=== PATIENT | male | born 1955 | race American Indian/Alaskan Native ===

== ENCOUNTER 2017-02-09 16:20 | Inpatient (IN) | payer OTHER ==
[2017-02-09 16:21] VITALS: BMI 31.1
--- NOTE | 2017-02-09 17:19 | C.PDOC ---
Time Seen by Provider: 02/09/17 17:07 Chief Complaint (Nursing): Lower Extremity Problem/Injury Past Medical History Vital Signs: Last Vital Signs Temp 98.2 F 02/09/17 16:51 Pulse 99 H 02/09/17 16:51 Resp 20 02/09/17 16:51 BP 125/83 02/09/17 16:51 Pulse Ox 99 02/09/17 16:51 - Medical History PMH: Bronchitis, Diabetes, Diverticulitis, HTN Denies: Chronic Kidney Disease - [facility] Procedures DILATE L PERONEAL ART W DRUG-ELUT INTRALUM, PERC (11/26/15) EXTIRPATION OF MATTER FROM L PERONEAL ART, PERC APPROACH (11/26/15) INSERTION OF INFUSION DEV INTO SUP VENA CAVA, PERC APPROACH (11/26/15) ULTRASONOGRAPHY OF SUPERIOR VENA CAVA, GUIDANCE (11/26/15) Family History: States: [place] (Both mother and father.), CAD (Both Mother and father.) - Social History Hx Tobacco Use: No Hx Alcohol Use: Yes Hx Substance Use: No - Immunization History Hx Tetanus Toxoid Vaccination: No Hx Influenza Vaccination: Yes Hx Pneumococcal Vaccination: Yes ED Course And Treatment O2 Sat by Pulse Oximetry: 99 Disposition - Disposition
--- NOTE | 2017-02-09 17:23 | C.PDOC ---
History Of Present Illness <Chana Garcia Bello - Last Filed: 02/09/17 17:35> <Dominique Vital - Last Filed: 02/09/17 19:53> 61 y/o male, with past medical history of diabetes, is sent to ED by PMD for evaluation of pain and swelling to left 2nd toe for the past week. Pt states his 2nd toe was stepped on 1 week ago. Pt admits to having similar symptoms in the past. Denies change in sensation, numbness, fever, chills, or any other associated symptoms at this time. (Chana Garcia) History Per: Patient History/Exam Limitations: no limitations Onset/Duration Of Symptoms: Days (1 week) Current Symptoms Are (Timing): Still Present Recent travel outside of the [place]: No Additional History Per: Patient <Chana Garcia Bello - Last Filed: 02/09/17 17:35> <Dominique Vital - Last Filed: 02/09/17 19:53> Time Seen by Provider: 02/09/17 17:07 Chief Complaint (Nursing): Lower Extremity Problem/Injury Past Medical History Reviewed: Historical Data, Nursing Documentation, Vital Signs - Medical History PMH: Bronchitis, Diabetes, Diverticulitis, HTN Denies: Chronic Kidney Disease Family History: States: [place] (Both mother and father.), CAD (Both Mother and father.) - Social History Hx Tobacco Use: No Hx Alcohol Use: Yes Hx Substance Use: No - Immunization History Hx Tetanus Toxoid Vaccination: No Hx Influenza Vaccination: Yes Hx Pneumococcal Vaccination: Yes <Chana Garcia - Last Filed: 02/09/17 17:35> Vital Signs: Last Vital Signs Temp 98.2 F 02/09/17 16:51 Pulse 99 H 02/09/17 16:51 Resp 20 02/09/17 16:51 BP 125/83 02/09/17 16:51 Pulse Ox 99 02/09/17 17:36 - [facility] Procedures DILATE L PERONEAL ART W DRUG-ELUT INTRALUM, PERC (11/26/15) EXTIRPATION OF MATTER FROM L PERONEAL ART, PERC APPROACH (11/26/15) INSERTION OF INFUSION DEV INTO SUP VENA CAVA, PERC APPROACH (11/26/15) ULTRASONOGRAPHY OF SUPERIOR VENA CAVA, GUIDANCE (07/26/16) Review Of Systems Except As Marked, All Systems Reviewed And Found Negative. Constitutional: Negative for: Fever, Chills Musculoskeletal: Positive for: Foot Pain (left 2nd toe) Skin: Negative for: Rash Neurological: Negative for: Weakness, Numbness <Chana Garcia - Last Filed: 02/09/17 17:35> Physical Exam - Physical Exam Appears: Non-toxic, No Acute Distress Skin: Warm, Dry, Other (1cm of superficial ulcer to left 2nd toe) Head: Atraumatic, Normacephalic Eye(s): bilateral: Normal Inspection, PERRL, EOMI Nose: Normal Oral Mucosa: Moist Neck: Normal ROM, Supple Lymphatic: No Adenopathy Chest: Symmetrical Cardiovascular: Rhythm Regular (RRR), No Murmur, No Other (no tachycardia) Respiratory: Normal Breath Sounds, No Rales, No Rhonchi, No Wheezing Gastrointestinal/Abdominal: Soft, No Tenderness Extremity: Normal ROM, No Pedal Edema, No Calf Tenderness, Capillary Refill (<2 secs.), No Deformity, No Swelling Pulses: Left Dorsalis Pedis: Normal, Right Dorsalis Pedis: Normal Neurological/Psych: Oriented x3, Normal Speech, Normal Motor, Normal Sensation Gait: Steady <hCana Garcia - Last Filed: 02/09/17 17:35> ED Course And Treatment O2 Sat by Pulse Oximetry: 99 (RA) Pulse Ox Interpretation: Normal <Chana Garcia - Last Filed: 02/09/17 17:35> - Laboratory Results Result Diagrams: 02/09/17 17:33 02/09/17 17:33 <Dominique Vital - Last Filed: 02/09/17 19:53> Medical Decision Making <Chana Garcia - Last Filed: 02/09/17 17:35> <Dominique Vital - Last Filed: 02/09/17 19:53> Medical Decision Making: Blood work, left 2nd toe x-ray ordered and reviewed. Podiatry resident was paged, who will evaluate patient at bedside. Resident was aware that Dr. Moncada would like patient to be admitted. (Chana Garcia) Disposition <Chana Garcia - Last Filed: 02/09/17 17:35> Discussed With : Jeremy De Leon Comment: accepted the pt on his service and took over the care at took over the care at 7:52PM Doctor Will See Patient In The: ED Counseled Patient/Family Regarding: Studies Performed, Diagnosis - Disposition Disposition Time: 19:00 - POA Present On Arrival: Poor Glycemic Control <Dominique Vital - Last Filed: 02/09/17 19:53> - Disposition Disposition: HOSPITALIZED Condition: FAIR Forms: [facility] ([facility]) - Clinical Impression Clinical Impression: Cellulitis, Osteomyelitis, Diabetes mellitus - Scribe Statement The provider has reviewed the documentation as recorded by the Scribe <Chana Garcia - Last Filed: 02/09/17 17:35> <Dominique Vital - Last Filed: 02/09/17 19:53> - Scribe Statement Clemencia Anderson All medical record entries made by the Scribe were at my direction and personally dictated by me. I have reviewed the chart and agree that the record accurately reflects my personal performance of the history, physical exam, medical decision making, and the department course for this patient. I have also personally directed, reviewed, and agree with the discharge instructions and disposition. (Chana Garcia) Decision To Admit <Chana Garcia - Last Filed: 02/09/17 17:35> - Pt Status Changed To: Hospital Disposition Of: Inpatient - Admit Certification Admit to Inpatient:: After my assessment, the patient will require hospitalization for at least two midnights. This is because of the severity of symptoms shown, intensity of services needed, and/or the medical risk in this patient being treated as an outpatient. - InPatient: Physician Admission Certification: I certify that this patient requires 2 or more midnights of care for the following reason:: After my assessment, the patient will require hospitalization for at least two midnights. This is because of the severity of symptoms shown, intensity of services needed, and/or the medical risk in this patient being treated as an outpatient. - . Bed Request Type: Regular Admitting Physician: Jeremy De Leon <Dominique Vital - Last Filed: 02/09/17 19:53> - . Patient Diagnosis: Cellulitis, Osteomyelitis, Diabetes mellitus
[2017-02-09 17:39] LABS: BASO # 0.1 K/uL (0.0-0.2); EOS # 0.2 K/uL (0.0-0.7); EOS % 2.8 % (0.0-4.0); HEMATOCRIT 40.3 % (35.0-51.0); LYMPH # 2.3 K/uL (1.0-4.3); LYMPH % 28.9 % (20.0-40.0); MEAN CELL VOLUME 91.4 fL (80.0-94.0); MEAN CORPUSCULAR HEMOGLOBIN 31.6 pg (27.0-31.0); MEAN CORPUSCULAR HGB CONC 34.5 g/dL (33.0-37.0); MONO # 0.6 K/uL (0.0-0.8); MONO % 7.8 % (0.0-10.0); NRBC % 0.1 % (0.0-2.0); RED CELL DISTRIBUTION WIDTH 13.5 % (11.5-14.5)
[2017-02-09 17:51] LABS: CHLORIDE 93 mmol/L (98-107); POTASSIUM 4.3 mmol/L (3.6-5.2); SODIUM 131 mmol/L (132-148)
[2017-02-09 17:53] LABS: GFR AFRICAN-AMERICAN > 60
[2017-02-09 17:54] LABS: ALB/GLOB RATIO 1.2 (1.0-2.1); ALKALINE PHOSPHATASE 113 U/L (38-126); ALT/SGPT 47 U/L (21-72); AST/SGOT 33 U/L (17-59); BILIRUBIN,TOTAL 0.6 mg/dL (0.2-1.3); BLOOD UREA NITROGEN 15 mg/dL (9-20); CALCIUM 9.6 mg/dl (8.6-10.4); CARBON DIOXIDE 25 mmol/L (22-30); GLUCOSE,RANDOM 381 mg/dL (75-110); TOTAL PROTEIN 7.7 g/dL (6.3-8.3)
--- NOTE | 2017-02-09 18:17 | RAD ---
Left foot radiographs, 2nd digit ; three views Comparison: Left foot radiographs performed 11/26/15 Indication: Rule out osteo Findings: Soft tissue swelling. Irregularity about the 2nd digit, middle phalanx ; correlate clinically for osteomyelitis versus nondisplaced fracture. The remainder of the visualized osseous structures appear intact. No dislocation. Impression: Irregularity involving the 2nd middle phalanx ; correlate clinically for osseous destructive changes related to osteomyelitis versus nondisplaced fracture. Soft tissue swelling. Please note that MRI without and with IV contrast is most sensitive in detection of acute osteomyelitis.
--- NOTE | 2017-02-09 18:54 | CP.PCM.CON ---
History of Present Illness - History of Present Illness History of Present Illness: Podiatry consult note-- Dr. Dhavla Moncada This is a 61 yo male patient seen in ED today for ulceration and pain to left 2nd toe. Pt says this has been present for 1 week after someone stepped on his toe. Denies seeing any pus or drainage, has been been applying neosporin daily. Complains of tenderness to the 2nd toe which he says is getting worse. Describes as a burning pain. Denies any numbness or tingling. Was seen in office of Dr. Moncada today, Dr. Moncada advised pt to proceed to ED for labs, foot x-ray and note for admission. Pt says his blood sugar has been high recently, says his A1C is 12.0. Pt denies f/n/v/c/sob/cp/weakness/dizziness at this time. Offers no other complaints. Has been ambulating with surgical shoe. PMH: DM, HTN ALL: PCN Meds: see home meds Surg Hx: right ulnar nerve surgery Soc Hx: past smoker (denies current use), drinks 1-2 beers nightly with dinner, denies illicit drug use Review of Systems - Review of Systems Review of Systems: all systems reviewed and negative except HPI Past Patient History - Infectious Disease Hx of Infectious Diseases: None - Past Medical History & Family History Past Medical History?: Yes - Past Social History Smoking Status: Former Smoker - CARDIAC Hx Hypertension: Yes - PULMONARY Hx Bronchitis: Yes - NEUROLOGICAL Hx Neurological Disorder: No - HEENT Hx HEENT Problems: No - RENAL Hx Chronic Kidney Disease: No - ENDOCRINE/METABOLIC Hx Endocrine Disorders: Yes Hx Diabetes Mellitus Type 2: Yes - HEMATOLOGICAL/ONCOLOGICAL Hx Blood Disorders: No - INTEGUMENTARY Hx Dermatological Problems: Yes Other/Comment: HX: LEFT FOOT ULCER. HX: OSTEOMYELITIS - MUSCULOSKELETAL/RHEUMATOLOGICAL Hx Musculoskeletal Disorders: No Hx Falls: No - GASTROINTESTINAL Hx Diverticulitis: Yes - GENITOURINARY/GYNECOLOGICAL Hx Genitourinary Disorders: No - PSYCHIATRIC Hx Substance Use: No - SURGICAL HISTORY Hx Surgeries: Yes Hx Angiogram: Yes (ABDOMINAL) Hx Eye Surgery: Yes (R eye cataract/ Lasek) Hx Orthopedic Surgery: Yes (L 5th finger, R elbow) Other/Comment: L wrist /L hand ganglion cyst removed. HX: PICC LINE INSERTION - ANESTHESIA Hx Anesthesia: Yes Hx Anesthesia Reactions: No Hx Malignant Hyperthermia: No Meds Allergies/Adverse Reactions: Allergies Allergy/AdvReac Type Severity Reaction Status Date / Time Penicillins Allergy Verified 01/16/16 13:30 Physical Exam - Constitutional Appears: Non-toxic, No Acute Distress - Extremities Exam Extremities exam: Negative for: calf tenderness Additional comments: B/L lower ext exam: VASC- DP/PT pulses faintly palpable, skin temp runs warm to warm (proximal to distal), cap refill <3 sec to all digits NEURO- pedal sensation is grossly diminished DERM-full thickness ulceration noted to medial aspect of left 2nd digit, with fibrogranular base, no purulence, no drainage, no malodor, neg probe to bone, slight erythema noted to left 2nd digit ORTHO- tender to palpation left 2nd digit, able to wiggle all toes freely - Neurological Exam Neurological exam: Alert, CN II-XII Intact, Oriented x3 - Psychiatric Exam Psychiatric exam: Normal Affect, Normal Mood Results - Vital Signs Recent Vital Signs: Last Vital Signs Temp 98.2 F 02/09/17 16:51 Pulse 99 H 02/09/17 16:51 Resp 20 02/09/17 16:51 BP 125/83 02/09/17 16:51 Pulse Ox 99 02/09/17 17:36 - Labs Result Diagrams: 02/09/17 17:33 02/09/17 17:33 Labs: Laboratory Results - last 24 hr 02/09/17 02/09/17 02/09/17 17:33 17:33 17:33 WBC 8.0 RBC 4.41 Hgb 13.9 Hct 40.3 MCV 91.4 MCH 31.6 H MCHC 34.5 RDW 13.5 Plt Count 275 MPV 8.0 Neut % (Auto) 59.5 Lymph % (Auto) 28.9 Hitchcock % (Auto) 7.8 Eos % (Auto) 2.8 Baso % (Auto) 1.0 Neut # 4.7 Lymph # 2.3 Hitchcock # 0.6 Eos # 0.2 Baso # 0.1 Sodium 131 L Potassium 4.3 Chloride 93 L Carbon Dioxide 25 Anion Gap 17 BUN 15 Creatinine 0.8 Est GFR ( Amer) > 60 Est GFR (Non-Af Amer) > 60 Random Glucose 381 H Lactic Acid 2.0 Calcium 9.6 Total Bilirubin 0.6 AST 33 ALT 47 Alkaline Phosphatase 113 C-React Prot High Sens Total Protein 7.7 Albumin 4.3 Globulin 3.5 Albumin/Globulin Ratio 1.2 02/09/17 17:33 WBC RBC Hgb Hct MCV MCH MCHC RDW Plt Count MPV Neut % (Auto) Lymph % (Auto) Hitchcock % (Auto) Eos % (Auto) Baso % (Auto) Neut # Lymph # Hitchcock # Eos # Baso # Sodium Potassium Chloride Carbon Dioxide Anion Gap BUN Creatinine Est GFR ( Amer) Est GFR (Non-Af Amer) Random Glucose Lactic Acid Calcium Total Bilirubin AST ALT Alkaline Phosphatase C-React Prot High Sens > 15.00 H Total Protein Albumin Globulin Albumin/Globulin Ratio Assessment & Plan - Assessment and Plan (Free Text) Assessment: 61 yo diabetic male patient with 1) ulceration of left 2nd digit with possible fracture vs. possible OM, 2) PAD Plan: Pt S&E at bedside in ED Plan discussed with attending Dr. Moncada in detail Chart, labs and vitals reviewed: WBC WNL, CRP is elevated, ESR pending Wound cx: results pending Right foot x-ray: irregularity 2nd middle phalanx (osseous destructive changes related to OM vs. non-displaced fx) MRI ordered: r/o OM (to be taken tomorrow) Vascular consult placed, hx of PAD, past stenting in 2016 (Dr. Ponce) Per Dr. Moncada recommend admission for IV abx Dressing applied to left foot with DSD. Podiatry will follow while patient is in house.
--- NOTE | 2017-02-09 23:13 | CP.PCM.HP ---
<Lenore HutchinsonNoreen - Last Filed: 02/10/17 03:32> History of Present Illness - History of Present Illness History of Present Illness: Patient is a 61 year old male with a past medical history of HTN and DM, presents to the ED with an infection of the 2nd digit of the foot. Patient was sent in by their research instructor, Dr. Moncada. Patient reports that someone stepped on his foot last Wednesday, and since then, the infection developed. Patient reports 8/10 pain from the base of his toe to the tip. He reports nothing makes it worse or better. He tried naproxen with no relief. He currently denies having a fever, leg pain and swelling, nausea, vomiting, chest pain, shortness of breath, abdominal pain, and headaches. PMD: Dr. Moncada Quality Assurance Supervisor Chassis: Dr. Moncada PMHx: HTN, DM, previous left foot wound (2015, clean and packed) SurgHx: Stents in left leg (2005), shoulder/elbow surgery 5 years ago, Lasics eye surgery (L), Dalhart reattachment (childhood) FamHx: Mother- NM, Father-HTN, Grandson-Pancreatic Cancer SocHx: former smoker (5 cigarettes daily), drinks 2-3 beers nightly, denies drug use; lives at home with ; works at the [employer] Allergies: PCN (anaphylaxis) Medication: Metformin 500mg BID, Januvia, Enalapril, Plavix, Simvastatin ( unknown doses) Present on Admission - Present on Admission Any Indicators Present on Admission: Yes History of Uncontrolled Diabetes: Yes Review of Systems - Constitutional Constitutional: absent: Chills, Fever, Headache - EENT Eyes: absent: Change in Vision Ears: absent: Dizziness - Cardiovascular Cardiovascular: absent: Chest Pain, Dyspnea, Leg Edema, Palpitations - Respiratory Respiratory: absent: Cough, Dyspnea - Gastrointestinal Gastrointestinal: absent: Abdominal Pain, Constipation, Diarrhea, Nausea, Vomiting - Genitourinary Genitourinary: Urinary Frequency. absent: Dysuria, Hematuria - Integumentary Integumentary: Wounds (2ng digit of left foot) - Neurological Neurological: absent: Dizziness, Headaches, Weakness - Hematologic/Lymphatic Hematologic: absent: Easy Bruising Past Patient History - Infectious Disease Hx of Infectious Diseases: None - Past Medical History & Family History Past Medical History?: Yes - Past Social History Smoking Status: Former Smoker - CARDIAC Hx Hypertension: Yes - PULMONARY Hx Bronchitis: Yes - NEUROLOGICAL Hx Neurological Disorder: No - HEENT Hx HEENT Problems: No - RENAL Hx Chronic Kidney Disease: No - ENDOCRINE/METABOLIC Hx Endocrine Disorders: Yes Hx Diabetes Mellitus Type 2: Yes - HEMATOLOGICAL/ONCOLOGICAL Hx Blood Disorders: No - INTEGUMENTARY Hx Dermatological Problems: Yes Other/Comment: HX: LEFT FOOT ULCER. HX: OSTEOMYELITIS - MUSCULOSKELETAL/RHEUMATOLOGICAL Hx Musculoskeletal Disorders: No Hx Falls: No - GASTROINTESTINAL Hx Diverticulitis: Yes - GENITOURINARY/GYNECOLOGICAL Hx Genitourinary Disorders: No - PSYCHIATRIC Hx Substance Use: No - SURGICAL HISTORY Hx Surgeries: Yes Hx Angiogram: Yes (ABDOMINAL) Hx Eye Surgery: Yes (R eye cataract/ Lasek) Hx Orthopedic Surgery: Yes (L 5th finger, R elbow) Other/Comment: L wrist /L hand ganglion cyst removed. HX: PICC LINE INSERTION - ANESTHESIA Hx Anesthesia: Yes Hx Anesthesia Reactions: No Hx Malignant Hyperthermia: No Meds Allergies/Adverse Reactions: Allergies Allergy/AdvReac Type Severity Reaction Status Date / Time Penicillins Allergy Verified 01/16/16 13:30 Physical Exam - Constitutional Appears: No Acute Distress - Head Exam Head Exam: ATRAUMATIC, NORMAL INSPECTION - Eye Exam Eye Exam: EOMI, Normal appearance - ENT Exam ENT Exam: Mucous Membranes Moist - Respiratory Exam Respiratory Exam: Clear to Auscultation Bilateral, NORMAL BREATHING PATTERN. absent: Rales, Rhonchi, Wheezes - Cardiovascular Exam Cardiovascular Exam: REGULAR RHYTHM, RRR, +S1, +S2 - GI/Abdominal Exam GI & Abdominal Exam: Normal Bowel Sounds, Soft. absent: Firm, Guarding, Mass, Tenderness - Extremities Exam Extremities exam: Positive for: tenderness (left LE extending down from knee). Negative for: normal inspection, pedal pulses present - Neurological Exam Neurological exam: Alert, Oriented x3 - Psychiatric Exam Psychiatric exam: Normal Affect, Normal Mood - Skin Skin Exam: Dry, Normal Color, Warm Additional comments: ulceration of the 2nd digit of the left foot, no discharge, erythema, or odor. Results - Vital Signs Recent Vital Signs: Last Vital Signs Temp 97.8 F 02/09/17 21:06 Pulse 90 02/09/17 21:06 Resp 20 02/09/17 21:06 BP 146/79 02/09/17 21:06 Pulse Ox 96 02/09/17 21:06 - Labs Result Diagrams: 02/09/17 17:33 02/09/17 17:33 Labs: Laboratory Results - last 24 hr 02/09/17 02/09/17 02/09/17 17:33 17:33 17:33 WBC 8.0 RBC 4.41 Hgb 13.9 Hct 40.3 MCV 91.4 MCH 31.6 H MCHC 34.5 RDW 13.5 Plt Count 275 MPV 8.0 Neut % (Auto) 59.5 Lymph % (Auto) 28.9 Mckean % (Auto) 7.8 Eos % (Auto) 2.8 Baso % (Auto) 1.0 Neut # 4.7 Lymph # 2.3 Mckean # 0.6 Eos # 0.2 Baso # 0.1 ESR 37 H Sodium 131 L Potassium 4.3 Chloride 93 L Carbon Dioxide 25 Anion Gap 17 BUN 15 Creatinine 0.8 Est GFR ( Amer) > 60 Est GFR (Non-Af Amer) > 60 Random Glucose 381 H Lactic Acid 2.0 Calcium 9.6 Total Bilirubin 0.6 AST 33 ALT 47 Alkaline Phosphatase 113 C-React Prot High Sens Total Protein 7.7 Albumin 4.3 Globulin 3.5 Albumin/Globulin Ratio 1.2 02/09/17 17:33 WBC RBC Hgb Hct MCV MCH MCHC RDW Plt Count MPV Neut % (Auto) Lymph % (Auto) Mckean % (Auto) Eos % (Auto) Baso % (Auto) Neut # Lymph # Mckean # Eos # Baso # ESR Sodium Potassium Chloride Carbon Dioxide Anion Gap BUN Creatinine Est GFR ( Amer) Est GFR (Non-Af Amer) Random Glucose Lactic Acid Calcium Total Bilirubin AST ALT Alkaline Phosphatase C-React Prot High Sens > 15.00 H Total Protein Albumin Globulin Albumin/Globulin Ratio Assessment & Plan (1) Osteomyelitis Assessment and Plan: Need to rule out osteomyelitis of 2nd digit of left foot Wound cx: f/u results and sensitivities Blood cx: f/u results Xray: irregularity on 2nd middle phalanx- osseous destructive changes related to osteomyelitis vs. nondisplaced fracture. soft tissue swelling. Started Vancomycin 1gm IV Q24hr Podiatry consulted- Dr. Moncada, follow recs as per podiatry team * Left LE MRI: f/u results * Arterial doppler of left LE: f/u results Surgery consulted- Dr. Ponce, help appreciated Status: Acute (2) HTN (hypertension) Assessment and Plan: Continue home medications- Enalapril. Status: Acute (3) PVD (peripheral vascular disease) Assessment and Plan: Hx of left LE stents (2015) Continue home medication, Plavix 75mg PO daily Status: Acute (4) Diabetes mellitus Assessment and Plan: Continue home medications- Januvia, Linagliptin, Metformin. Monitor blood glucose, Accuchecks Consistent carbohydrate diet (low) Status: Acute (5) Prophylactic measure Assessment and Plan: SCDs- C/I due to infection and PVD Consistent Carbohydrate Diet Accuchecks O2 via nasal cannula Pepcid 20mg PO BID Heparin 5,000 SC PT Status: Acute <Jeremy De Leon - Last Filed: 02/10/17 06:23> Results - Vital Signs Recent Vital Signs: Last Vital Signs Temp 98.2 F 02/09/17 23:12 Pulse 77 02/09/17 23:12 Resp 20 02/09/17 23:12 BP 137/78 02/09/17 23:12 Pulse Ox 100 02/09/17 23:12 - Labs Result Diagrams: 02/09/17 17:33 02/09/17 17:33 Labs: Laboratory Results - last 24 hr 02/09/17 02/09/17 02/09/17 17:33 17:33 17:33 WBC 8.0 RBC 4.41 Hgb 13.9 Hct 40.3 MCV 91.4 MCH 31.6 H MCHC 34.5 RDW 13.5 Plt Count 275 MPV 8.0 Neut % (Auto) 59.5 Lymph % (Auto) 28.9 Mckean % (Auto) 7.8 Eos % (Auto) 2.8 Baso % (Auto) 1.0 Neut # 4.7 Lymph # 2.3 Mckean # 0.6 Eos # 0.2 Baso # 0.1 ESR 37 H Sodium 131 L Potassium 4.3 Chloride 93 L Carbon Dioxide 25 Anion Gap 17 BUN 15 Creatinine 0.8 Est GFR ( Amer) > 60 Est GFR (Non-Af Amer) > 60 Random Glucose 381 H Lactic Acid 2.0 Calcium 9.6 Total Bilirubin 0.6 AST 33 ALT 47 Alkaline Phosphatase 113 C-React Prot High Sens Total Protein 7.7 Albumin 4.3 Globulin 3.5 Albumin/Globulin Ratio 1.2 02/09/17 17:33 WBC RBC Hgb Hct MCV MCH MCHC RDW Plt Count MPV Neut % (Auto) Lymph % (Auto) Mckean % (Auto) Eos % (Auto) Baso % (Auto) Neut # Lymph # Mckean # Eos # Baso # ESR Sodium Potassium Chloride Carbon Dioxide Anion Gap BUN Creatinine Est GFR ( Amer) Est GFR (Non-Af Amer) Random Glucose Lactic Acid Calcium Total Bilirubin AST ALT Alkaline Phosphatase C-React Prot High Sens > 15.00 H Total Protein Albumin Globulin Albumin/Globulin Ratio Assessment & Plan - Date & Time Date: 02/10/17 (I have seen and examined the patient. I agree with the findings and plan of care as documented by Dr. Hutchinson. Patient with osteomyelitis of right foot. History of peripheral vascular disease. Consult to Dr. Ponce and Dr. Moncada - podiatry. Vanco for now. Unable to give zosyn due to PCN allergy. Continue Plavix. History of diabetes. Continue home meds. Accuchecks and NISS. Monitor for acute changes.) Time: 06:22 Attending/Attestation - Attestation I have personally seen and examined this patient.: Yes I have fully participated in the care of the patient.: Yes I have reviewed all pertinent clinical information: Yes
--- NOTE | 2017-02-10 00:18 | CP.PCM.CON ---
History of Present Illness - History of Present Illness History of Present Illness: Surgery: Dr. Ponce CC: left toe wound Reason for consult: HX of PAD HPI: Patient is a 61 y/o male w/ sign. PMHX of PAD requiring stent placement on LLE as well as DM presents complaining of left 2nd toe wound x1 week. States the toe was injured 2/2 someone stepping on it. He reports noticing an increase in swelling of the LE x 1 week as well. He report significant pain to the left toe. He states before the injury he has been ambulating w/o pain for the past year since the stents were placed. He denies resting pain. He denies f/c/n/v. He reports taking his diabetic medication but states his sugars have been running high, last Hgb A1c was around 12 per patient report. PMH: PAD, HTN, DM PSH: right elbow, left shoulder, lasix, Left sided LE angio w/ balloon angioplasty, arthrectomy and 3 stents placed Social: former tobacco user (15+ years ago), denies ETOH or drug use Review of Systems - Review of Systems All systems: reviewed and no additional remarkable complaints except Review of Systems: unless stated in HPI Past Patient History - Infectious Disease Hx of Infectious Diseases: None - Past Medical History & Family History Past Medical History?: Yes - Past Social History Smoking Status: Former Smoker - CARDIAC Hx Hypertension: Yes - PULMONARY Hx Bronchitis: Yes - NEUROLOGICAL Hx Neurological Disorder: No - HEENT Hx HEENT Problems: No - RENAL Hx Chronic Kidney Disease: No - ENDOCRINE/METABOLIC Hx Endocrine Disorders: Yes Hx Diabetes Mellitus Type 2: Yes - HEMATOLOGICAL/ONCOLOGICAL Hx Blood Disorders: No - INTEGUMENTARY Hx Dermatological Problems: Yes Other/Comment: HX: LEFT FOOT ULCER. HX: OSTEOMYELITIS - MUSCULOSKELETAL/RHEUMATOLOGICAL Hx Musculoskeletal Disorders: No Hx Falls: No - GASTROINTESTINAL Hx Diverticulitis: Yes - GENITOURINARY/GYNECOLOGICAL Hx Genitourinary Disorders: No - PSYCHIATRIC Hx Substance Use: No - SURGICAL HISTORY Hx Surgeries: Yes Hx Angiogram: Yes (ABDOMINAL) Hx Eye Surgery: Yes (R eye cataract/ Lasek) Hx Orthopedic Surgery: Yes (L 5th finger, R elbow) Other/Comment: L wrist /L hand ganglion cyst removed. HX: PICC LINE INSERTION - ANESTHESIA Hx Anesthesia: Yes Hx Anesthesia Reactions: No Hx Malignant Hyperthermia: No Meds Allergies/Adverse Reactions: Allergies Allergy/AdvReac Type Severity Reaction Status Date / Time Penicillins Allergy Verified 01/16/16 13:30 - Medications Medications: Current Medications Acetaminophen (Tylenol 325mg Tab) 650 mg PO Q6 PRN PRN Reason: Pain, Mild (1-3) Clopidogrel Bisulfate (Plavix) 75 mg PO DAILY [facility]CLUDES [facility] Enalapril Maleate (Vasotec) 10 mg PO DAILY [facility]CLUD[facility] Famotidine (Pepcid) 20 mg PO BID [facility]CLUDES [facility] Heparin Sodium (Porcine) (Heparin) 5,000 units SC Q8 [facility] INCLUDES [facility] Home Med (Januvia) 1 tab PO DAILY COUNT INCLUDES [facility] Home Med (Linagliptin [Tradjenta]) 5 mg PO DAILY COUNT [facility]CLUDES [facility] Vancomycin/Sodium Chloride (Vancocin) 1 gm in 200 mls @ 133 mls/hr IVPB Q24H [facility]CLUD[facility] Stop: 02/15/17 00:01 Metformin HCl (Glucophage) 500 mg PO BID COUNT [facility]CLUDES [facility] Physical Exam - Constitutional Appears: Non-toxic, No Acute Distress - Head Exam Head Exam: ATRAUMATIC, NORMOCEPHALIC - Eye Exam Eye Exam: EOMI, Normal appearance - ENT Exam ENT Exam: Mucous Membranes Moist - Respiratory Exam Respiratory Exam: NORMAL BREATHING PATTERN. absent: Respiratory Distress - Cardiovascular Exam Cardiovascular Exam: REGULAR RHYTHM. absent: Tachycardia - Extremities Exam Additional comments: left ulcers on 2nd toe w/ clean dry dressing intact. pulses significant diminished, almost nonpalpable to the LLE. LE warm to touch. 2+ pitting edema. No cellulitic changes appreciated. - Neurological Exam Neurological exam: Alert, Oriented x3 - Psychiatric Exam Psychiatric exam: Normal Affect, Normal Mood - Skin Skin Exam: Dry, Normal Color Results - Vital Signs Recent Vital Signs: Last Vital Signs Temp 98.2 F 02/09/17 23:12 Pulse 77 02/09/17 23:12 Resp 20 02/09/17 23:12 BP 137/78 02/09/17 23:12 Pulse Ox 100 02/09/17 23:12 - Labs Result Diagrams: 02/09/17 17:33 02/09/17 17:33 Labs: Laboratory Results - last 24 hr 02/09/17 02/09/17 02/09/17 17:33 17:33 17:33 WBC 8.0 RBC 4.41 Hgb 13.9 Hct 40.3 MCV 91.4 MCH 31.6 H MCHC 34.5 RDW 13.5 Plt Count 275 MPV 8.0 Neut % (Auto) 59.5 Lymph % (Auto) 28.9 [place] % (Auto) 7.8 Eos % (Auto) 2.8 Baso % (Auto) 1.0 Neut # 4.7 Lymph # 2.3 [place] # 0.6 Eos # 0.2 Baso # 0.1 ESR 37 H Sodium 131 L Potassium 4.3 Chloride 93 L Carbon Dioxide 25 Anion Gap 17 BUN 15 Creatinine 0.8 Est GFR ( Amer) > 60 Est GFR (Non-Af Amer) > 60 Random Glucose 381 H Lactic Acid 2.0 Calcium 9.6 Total Bilirubin 0.6 AST 33 ALT 47 Alkaline Phosphatase 113 C-React Prot High Sens Total Protein 7.7 Albumin 4.3 Globulin 3.5 Albumin/Globulin Ratio 1.2 02/09/17 17:33 WBC RBC Hgb Hct MCV MCH MCHC RDW Plt Count MPV Neut % (Auto) Lymph % (Auto) [place] % (Auto) Eos % (Auto) Baso % (Auto) Neut # Lymph # [place] # Eos # Baso # ESR Sodium Potassium Chloride Carbon Dioxide Anion Gap BUN Creatinine Est GFR ( Amer) Est GFR (Non-Af Amer) Random Glucose Lactic Acid Calcium Total Bilirubin AST ALT Alkaline Phosphatase C-React Prot High Sens > 15.00 H Total Protein Albumin Globulin Albumin/Globulin Ratio Assessment & Plan - Assessment and Plan (Free Text) Assessment: 61 y/o male w/ left foot wound, Hx of PAD s/p intervention Plan: -arterial duplex study -possible CT angio -wound care per podiatry -abx per primary -am labs -f/u culture -pending result determine vascular intervention -further recs per Dr. Ponce AKWhite PGY3
[2017-02-10] MEDS: Vancomycin 1 gm/NS 200 ml 1 GM/200 ML BAG IVPB SCH (00:25)
[2017-02-10 07:27] LABS: BASO # 0.1 K/uL (0.0-0.2); BASO % 1.1 % (0.0-2.0); EOS # 0.2 K/uL (0.0-0.7); EOS % 4.1 % (0.0-4.0); HEMATOCRIT 37.7 % (35.0-51.0); LYMPH # 1.8 K/uL (1.0-4.3); LYMPH % 31.1 % (20.0-40.0); MEAN CELL VOLUME 91.1 fL (80.0-94.0); MEAN CORPUSCULAR HEMOGLOBIN 31.4 pg (27.0-31.0); MEAN CORPUSCULAR HGB CONC 34.5 g/dL (33.0-37.0); MEAN PLATELET VOLUME 8.2 fL (7.2-11.7); MONO # 0.6 K/uL (0.0-0.8); MONO % 9.8 % (0.0-10.0); RED CELL DISTRIBUTION WIDTH 13.4 % (11.5-14.5); WHITE BLOOD COUNT 5.8 K/uL (4.8-10.8)
[2017-02-10 07:42] LABS: CHLORIDE 97 mmol/L (98-107); POTASSIUM 4.7 mmol/L (3.6-5.2); SODIUM 132 mmol/L (132-148)
[2017-02-10 07:44] LABS: GFR AFRICAN-AMERICAN > 60
[2017-02-10 07:45] LABS: ALB/GLOB RATIO 1.2 (1.0-2.1); ALKALINE PHOSPHATASE 105 U/L (38-126); ALT/SGPT 51 U/L (21-72); AST/SGOT 49 U/L (17-59); BILIRUBIN,TOTAL 0.6 mg/dL (0.2-1.3); BLOOD UREA NITROGEN 13 mg/dL (9-20); CARBON DIOXIDE 25 mmol/L (22-30); TOTAL PROTEIN 6.9 g/dL (6.3-8.3)
[2017-02-10 07:46] LABS: CALCIUM 8.9 mg/dl (8.6-10.4); GLUCOSE,RANDOM 323 mg/dL (75-110)
[2017-02-10] MEDS ORDERED: Dextrose 50% SYRINGE Inj (50 ml) IV PRN (08:55)
[2017-02-10] MEDS ORDERED: Glucagon Recombinant 1 mg Inj IM PRN (08:55)
--- NOTE | 2017-02-10 08:58 | CP.PCM.PN ---
<Norma Jacobsa - Last Filed: 02/10/17 13:35> Subjective - Date & Time of Evaluation Date of Evaluation: 02/10/17 Time of Evaluation: 09:00 - Subjective Subjective: Medicine Note for Dr. Ruelas Patient was seen and examined at bedside. Patient reports he has mild pain. Denied fever, chills, headache, chest pain, SOB, abdominal pain, n/v/d/c, or urinary symptoms. Objective - Vital Signs/Intake and Output Vital Signs (last 24 hours): Temp Pulse Resp BP Pulse Ox 98.4 F 82 20 126/79 97 02/10/17 08:00 02/10/17 08:00 02/10/17 08:00 02/10/17 08:00 02/10/17 08:00 Intake and Output: 02/10/17 02/10/17 06:59 18:59 Intake Total 450 Balance 450 - Medications Medications: Current Medications Acetaminophen (Tylenol 325mg Tab) 650 mg PO Q6 PRN PRN Reason: Pain, Mild (1-3) Last Admin: 02/10/17 00:23 Dose: 650 mg Clopidogrel Bisulfate (Plavix) 75 mg PO DAILY [facility] Dextrose (Dextrose 50% Inj) 0 ml IV STAT PRN; Protocol PRN Reason: Hyglycemia Protocol Dextrose (Glutose 15) 0 gm PO ONCE PRN; Protocol PRN Reason: Hypoglycemia Protocol Enalapril Maleate (Vasotec) 10 mg PO DAILY [facility] Famotidine (Pepcid) 20 mg PO BID [facility] Glucagon (Glucagen Diagnostic Kit) 0 mg IM STAT PRN; Protocol PRN Reason: Hypoglycemia Protocol Heparin Sodium (Porcine) (Heparin) 5,000 units SC Q8 [facility] Last Admin: 02/10/17 06:30 Dose: Not Given Vancomycin/Sodium Chloride (Vancocin) 1 gm in 200 mls @ 133 mls/hr IVPB Q24H [facility] Stop: 02/15/17 00:01 Last Admin: 02/10/17 00:25 Dose: 133 mls/hr Dextrose (Dextrose 5% In Water 1000 Ml) 1,000 mls @ 0 mls/hr IV .Q0M PRN; Protocol; Per Protocol PRN Reason: Hypoglycemia Protocol Insulin Human Regular (Novolin R) 0 unit SC ACHS [facility] PRN Reason: Protocol - Labs Labs: 02/10/17 07:03 02/10/17 07:03 PT 10.7 SECONDS (9.7-12.2) 02/10/17 07:03 INR 1.0 02/10/17 07:03 APTT 41 SECONDS (21-34) H 02/10/17 07:03 - Constitutional Appears: No Acute Distress - Head Exam Head Exam: NORMAL INSPECTION, NORMOCEPHALIC - Eye Exam Eye Exam: EOMI, Normal appearance, PERRL Pupil Exam: NORMAL ACCOMODATION - ENT Exam ENT Exam: Mucous Membranes Moist - Respiratory Exam Respiratory Exam: Clear to Ausculation Bilateral, NORMAL BREATHING PATTERN. absent: Decreased Breath Sounds, Respiratory Distress - Cardiovascular Exam Cardiovascular Exam: REGULAR RHYTHM, RRR, +S1 - GI/Abdominal Exam GI & Abdominal Exam: Soft, Normal Bowel Sounds. absent: Distended, Tenderness - Extremities Exam Extremities Exam: Tenderness. absent: Pedal Edema Additional comments: TTP walker, ankle region of left leg. 2nd toe medial aspect - fascia layer visible, no pus or drainage from site. - Back Exam Back Exam: NORMAL INSPECTION - Neurological Exam Neurological Exam: Alert, Awake, Oriented x3 - Psychiatric Exam Psychiatric exam: Normal Affect, Normal Mood - Skin Skin Exam: Dry, Intact, Normal Color, Warm Assessment and Plan - Assessment and Plan (Free Text) Plan: Osteomyelitis of Left 2nd Metatarsal * Podiatry consulted- Dr. Moncada - help appreciated * ESR: 37, CRP: high * Xray: irregularity on 2nd middle phalanx- osseous destructive changes related to osteomyelitis vs. nondisplaced fracture. soft tissue swelling. * Left LE MRI: 1. Prominent signal abnormality with bony destructive changes seen at the 2nd middle phalanx extending into the base of the 2nd distal phalanx with decreased T1 signal, increased STIR signal, and patchy post- contrast enhancement consistent with an acute osteomyelitis. 2. Prominent bony destructive changes seen at the head of the 5th metatarsal bone with patchy decreased T1 signal and increased STIR signal with some adjacent mild reactive changes of the base of the 5th proximal phalanx. This is of uncertain clinical etiology however the sequelae of acute infectious and or inflammatory changes cannot entirely be excluded. Clinical correlation. 3. Prominent reticulation and edema seen within the dorsal subcutaneous soft tissues of the mid and forefoot. 4. Moderate hallux valgus deformity. 5. Mild patchy reactive edema seen within the 3rd middle phalanx, nonspecific. 6. Mild patchy reactive edema seen within the proximal medullary cavity of the 5th metatarsal bone, nonspecific. 7. Mild fraying with increased signal seen within the visualized Lisfranc ligament which may represent a low to moderate grade sprain and or mild partial tearing. Clinical correlation. 8. Mild nonspecific reactive edema seen within the middle cuneiform bone. * Request for PICC line - for long term care social worker IV abx * F/U blood cx, wound cx * Vancomycin 1gm IV Q24hr, not started on Zosyn 2/2 PCN allergy * Toradol PRN pain PVD (peripheral vascular disease) * Hx of left LE stents (2015) * Surgery consulted- Dr. Ponce, help appreciated * Arterial doppler of left LE: f/u results * F/U angiography * Continue home medication, Plavix 75mg PO daily Diabetes mellitus * HgA1c: 13.2 * Held home medications 2/2 anticipated angiography * Accuchecks * Consistent carbohydrate diet * ISS-high, may need to add lantus HTN (hypertension) * Continue home medications- Enalapril 10mg PO daily Prophylactic measure * GI PPX: Pepcid 20mg PO BID * DVT PPX: SCDs- C/I due to infection and PVD, Heparin 5,000 SC * PT Eval DW Reynaldo Howell DO, PGY-1 <Ion Morrow - Last Filed: 02/10/17 19:13> Objective - Vital Signs/Intake and Output Vital Signs (last 24 hours): Temp Pulse Resp BP Pulse Ox 97.7 F 78 20 140/88 99 02/10/17 16:00 02/10/17 16:00 02/10/17 16:00 02/10/17 16:00 02/10/17 16:00 Intake and Output: 02/10/17 02/11/17 18:59 06:59 Intake Total 500 Balance 500 - Medications Medications: Current Medications Acetaminophen (Tylenol 325mg Tab) 650 mg PO Q6 PRN PRN Reason: Pain, Mild (1-3) Last Admin: 02/10/17 10:08 Dose: 650 mg Aspirin (Aspirin Chewable) 81 mg PO DAILY [facility] Clopidogrel Bisulfate (Plavix) 75 mg PO DAILY [facility] Last Admin: 02/10/17 10:07 Dose: 75 mg Dextrose (Dextrose 50% Inj) 0 ml IV STAT PRN; Protocol PRN Reason: Hyglycemia Protocol Dextrose (Glutose 15) 0 gm PO ONCE PRN; Protocol PRN Reason: Hypoglycemia Protocol Enalapril Maleate (Vasotec) 10 mg PO DAILY [facility] Last Admin: 02/10/17 10:03 Dose: 10 mg Famotidine (Pepcid) 20 mg PO BID [facility] Last Admin: 02/10/17 17:25 Dose: 20 mg Glucagon (Glucagen Diagnostic Kit) 0 mg IM STAT PRN; Protocol PRN Reason: Hypoglycemia Protocol Heparin Sodium (Porcine) (Heparin) 5,000 units SC Q8 [facility] Last Admin: 02/10/17 14:24 Dose: Not Given Vancomycin/Sodium Chloride (Vancocin) 1 gm in 200 mls @ 133 mls/hr IVPB Q24H [facility] Stop: 02/15/17 00:01 Last Admin: 02/10/17 00:25 Dose: 133 mls/hr Dextrose (Dextrose 5% In Water 1000 Ml) 1,000 mls @ 0 mls/hr IV .Q0M PRN; Protocol; Per Protocol PRN Reason: Hypoglycemia Protocol Insulin Human Regular (Novolin R) 0 unit SC ACHS [facility] PRN Reason: Protocol Last Admin: 02/10/17 16:30 Dose: 6 unit Ketorolac Tromethamine (Toradol) 30 mg IVP Q6 PRN PRN Reason: Pain, moderate (4-7) Last Admin: 02/10/17 17:28 Dose: 30 mg - Labs Labs: 02/10/17 07:03 02/10/17 07:03 PT 10.7 SECONDS (9.7-12.2) 02/10/17 07:03 INR 1.0 02/10/17 07:03 APTT 41 SECONDS (21-34) H 02/10/17 07:03 Attending/Attestation - Attestation I have personally seen and examined this patient.: Yes I have fully participated in the care of the patient.: Yes I have reviewed all pertinent clinical information, including history, physical exam and plan: Yes Notes (Text): 3This is a 61 years old male with a past medical history of HTN and DM, presents to the ED with an infection of the 2nd digit of the foot. 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 Moncada. He has past medical history of HTN, DM, previous left foot wound (2015) He was seen and examined with the resident.His sugar is poorlu controlled.As per pt his DM meds were changed due to high sugar.Discussed about sugar control. Patient had MRI today shows acute osteomylitis of toe.He also had arterial doppler.Results pending.Seen by vascular surgeon.Patent stents .Has SFA disease .Planning for an angiogram tomorrow.He will be NPO for that.We will continue vancomycin.follow cultures.Ask for infectious disease consult start on insulin to control his sugar after the procedure .monitor sugar with sliding scale Continue his asprin,plavix and ACEI
[2017-02-10] MEDS ORDERED: Iodixanol 320 mg/ml 150 ml Bottle IV ONE (09:53)
[2017-02-10] MEDS ORDERED: JANUVIA PO SCH (10:00)
[2017-02-10] MEDS ORDERED: Gadodiamide 287 mg/ml 20 ml IV ONE (12:29)
[2017-02-10] MEDS: (Novolin R) Insulin Human Regular 100 units/ml vial SC SCH ×3 (13:07→21:45)
--- NOTE | 2017-02-10 13:12 | MRI ---
MRI left foot History: 2nd digit ulceration. Evaluate for osteomyelitis. Comparison: None available. Technique: Multi-echo multiplanar sequences were performed through the left foot without and with the use of intravenous contrast. Findings: Prominent signal abnormality with bony destructive changes seen at the 2nd middle phalanx extending into the base of the 2nd distal phalanx with decreased T1 signal, increased STIR signal, and patchy post-contrast enhancement consistent with an acute osteomyelitis. Prominent bony destructive changes seen at the head of the 5th metatarsal bone with patchy decreased T1 signal and increased STIR signal with some adjacent mild reactive changes of the base of the 5th proximal phalanx. This is of uncertain clinical etiology however the sequelae of acute infectious and or inflammatory changes cannot entirely be excluded. Clinical correlation. Prominent reticulation and edema seen within the dorsal subcutaneous soft tissues of the mid and forefoot. Moderate hallux valgus deformity. Mild patchy reactive edema seen within the 3rd middle phalanx, nonspecific. Mild patchy reactive edema seen within the proximal medullary cavity of the 5th metatarsal bone, nonspecific. Mild fraying with increased signal seen within the visualized Lisfranc ligament which may represent a low to moderate grade sprain and or mild partial tearing. Clinical correlation. Mild nonspecific reactive edema seen within the middle cuneiform bone. Impression: 1. Prominent signal abnormality with bony destructive changes seen at the 2nd middle phalanx extending into the base of the 2nd distal phalanx with decreased T1 signal, increased STIR signal, and patchy post-contrast enhancement consistent with an acute osteomyelitis. 2. Prominent bony destructive changes seen at the head of the 5th metatarsal bone with patchy decreased T1 signal and increased STIR signal with some adjacent mild reactive changes of the base of the 5th proximal phalanx. This is of uncertain clinical etiology however the sequelae of acute infectious and or inflammatory changes cannot entirely be excluded. Clinical correlation. 3. Prominent reticulation and edema seen within the dorsal subcutaneous soft tissues of the mid and forefoot. 4. Moderate hallux valgus deformity. 5. Mild patchy reactive edema seen within the 3rd middle phalanx, nonspecific. 6. Mild patchy reactive edema seen within the proximal medullary cavity of the 5th metatarsal bone, nonspecific. 7. Mild fraying with increased signal seen within the visualized Lisfranc ligament which may represent a low to moderate grade sprain and or mild partial tearing. Clinical correlation. 8. Mild nonspecific reactive edema seen within the middle cuneiform bone.
--- NOTE | 2017-02-10 16:05 | CP.PCM.PN ---
Subjective - Date & Time of Evaluation Date of Evaluation: 02/10/17 Time of Evaluation: 16:05 - Subjective Subjective: ct shows paatnet stent s but new sfa disease plan angio/plasty of left sfa Objective - Vital Signs/Intake and Output Vital Signs (last 24 hours): Temp Pulse Resp BP Pulse Ox 98.4 F 82 20 132/84 97 02/10/17 08:00 02/10/17 08:00 02/10/17 08:00 02/10/17 15:11 02/10/17 08:00 Intake and Output: 02/10/17 02/10/17 06:59 18:59 Intake Total 450 500 Balance 450 500 - Medications Medications: Current Medications Acetaminophen (Tylenol 325mg Tab) 650 mg PO Q6 PRN PRN Reason: Pain, Mild (1-3) Last Admin: 02/10/17 10:08 Dose: 650 mg Aspirin (Aspirin Chewable) 81 mg PO DAILY [facility] Clopidogrel Bisulfate (Plavix) 75 mg PO DAILY [facility] Last Admin: 02/10/17 10:07 Dose: 75 mg Dextrose (Dextrose 50% Inj) 0 ml IV STAT PRN; Protocol PRN Reason: Hyglycemia Protocol Dextrose (Glutose 15) 0 gm PO ONCE PRN; Protocol PRN Reason: Hypoglycemia Protocol Enalapril Maleate (Vasotec) 10 mg PO DAILY [facility] Last Admin: 02/10/17 10:03 Dose: 10 mg Famotidine (Pepcid) 20 mg PO BID [facility] Last Admin: 02/10/17 10:03 Dose: 20 mg Glucagon (Glucagen Diagnostic Kit) 0 mg IM STAT PRN; Protocol PRN Reason: Hypoglycemia Protocol Heparin Sodium (Porcine) (Heparin) 5,000 units SC Q8 [facility] Last Admin: 02/10/17 14:24 Dose: Not Given Vancomycin/Sodium Chloride (Vancocin) 1 gm in 200 mls @ 133 mls/hr IVPB Q24H [facility] Stop: 02/15/17 00:01 Last Admin: 02/10/17 00:25 Dose: 133 mls/hr Dextrose (Dextrose 5% In Water 1000 Ml) 1,000 mls @ 0 mls/hr IV .Q0M PRN; Protocol; Per Protocol PRN Reason: Hypoglycemia Protocol Insulin Human Regular (Novolin R) 0 unit SC ACHS [facility] PRN Reason: Protocol Last Admin: 02/10/17 13:07 Dose: 8 unit Ketorolac Tromethamine (Toradol) 30 mg IVP Q6 PRN PRN Reason: Pain, moderate (4-7) - Labs Labs: 02/10/17 07:03 02/10/17 07:03 PT 10.7 SECONDS (9.7-12.2) 02/10/17 07:03 INR 1.0 02/10/17 07:03 APTT 41 SECONDS (21-34) H 02/10/17 07:03
--- NOTE | 2017-02-10 19:26 | CP.PCM.PN ---
Subjective - Date & Time of Evaluation Date of Evaluation: 02/10/17 Time of Evaluation: 15:35 - Subjective Subjective: 61 yo male patient seen foot cellulitic left 2nd toe. Pt reports minor well controlled pain. Pt denies f/n/v/c/sob/cp/weakness/dizziness at this time. Pt has no acute overnight incidents. No new pedal complaints. Objective - Vital Signs/Intake and Output Vital Signs (last 24 hours): Temp Pulse Resp BP Pulse Ox 97.7 F 78 20 140/88 99 02/10/17 16:00 02/10/17 16:00 02/10/17 16:00 02/10/17 16:00 02/10/17 16:00 Intake and Output: 02/10/17 02/11/17 18:59 06:59 Intake Total 500 Balance 500 - Medications Medications: Current Medications Acetaminophen (Tylenol 325mg Tab) 650 mg PO Q6 PRN PRN Reason: Pain, Mild (1-3) Last Admin: 02/10/17 10:08 Dose: 650 mg Aspirin (Aspirin Chewable) 81 mg PO DAILY [facility] Clopidogrel Bisulfate (Plavix) 75 mg PO DAILY [facility] Last Admin: 02/10/17 10:07 Dose: 75 mg Dextrose (Dextrose 50% Inj) 0 ml IV STAT PRN; Protocol PRN Reason: Hyglycemia Protocol Dextrose (Glutose 15) 0 gm PO ONCE PRN; Protocol PRN Reason: Hypoglycemia Protocol Enalapril Maleate (Vasotec) 10 mg PO DAILY [facility] Last Admin: 02/10/17 10:03 Dose: 10 mg Famotidine (Pepcid) 20 mg PO BID [facility] Last Admin: 02/10/17 17:25 Dose: 20 mg Glucagon (Glucagen Diagnostic Kit) 0 mg IM STAT PRN; Protocol PRN Reason: Hypoglycemia Protocol Heparin Sodium (Porcine) (Heparin) 5,000 units SC Q8 [facility] Last Admin: 02/10/17 14:24 Dose: Not Given Vancomycin/Sodium Chloride (Vancocin) 1 gm in 200 mls @ 133 mls/hr IVPB Q24H [facility] Stop: 02/15/17 00:01 Last Admin: 02/10/17 00:25 Dose: 133 mls/hr Dextrose (Dextrose 5% In Water 1000 Ml) 1,000 mls @ 0 mls/hr IV .Q0M PRN; Protocol; Per Protocol PRN Reason: Hypoglycemia Protocol Insulin Human Regular (Novolin R) 0 unit SC ACHS [facility] PRN Reason: Protocol Last Admin: 02/10/17 16:30 Dose: 6 unit Ketorolac Tromethamine (Toradol) 30 mg IVP Q6 PRN PRN Reason: Pain, moderate (4-7) Last Admin: 02/10/17 17:28 Dose: 30 mg - Labs Labs: 02/10/17 07:03 02/10/17 07:03 PT 10.7 SECONDS (9.7-12.2) 02/10/17 07:03 INR 1.0 02/10/17 07:03 APTT 41 SECONDS (21-34) H 02/10/17 07:03 - Constitutional Appears: Well, Non-toxic, No Acute Distress - Extremities Exam Additional comments: B/L lower ext exam: VASC- DP/PT pulses faintly palpable, skin temp runs warm to warm (proximal to distal), cap refill <3 sec to all digits NEURO- pedal sensation is grossly diminished DERM-full thickness ulceration noted to medial aspect of left 2nd digit, with fibrogranular base, no purulence, no drainage, no malodor, neg probe to bone, slight erythema noted to left 2nd digit ORTHO- tender to palpation left 2nd digit, able to wiggle all toes freely - Neurological Exam Neurological Exam: Alert, Awake, Oriented x3 Assessment and Plan - Assessment and Plan (Free Text) Assessment: 61 yo diabetic male patient with 1) ulceration of left 2nd digit with possible fracture and possible OM, 2) PAD Plan: Pt S&E at bedside in ED Plan discussed with attending Dr. Moncada in detail Chart, labs and vitals reviewed: WBC WNL, CRP is elevated, ESR=37. Wound cx: G(+) Cocci Blood culture: G(+) cocci Right foot x-ray: irregularity 2nd middle phalanx (osseous destructive changes related to OM vs. non-displaced fx) MRI ordered: middle phalynx OM Vascular assessment- Dr. Ponce to take pt for angioplasty. Continue IV abx. Dressing applied to left foot with betadine & DSD. Podiatry will follow while patient is in house.
[2017-02-10] MEDS ORDERED: (Lantus) Insulin Glargine, Recombinant SC STA (23:17)
[2017-02-10] MEDS: Sodium Chloride 0.45% 1,000 ML IV SCH (23:55)
[2017-02-11] MEDS: Vancomycin 1 gm/NS 200 ml 1 GM/200 ML BAG IVPB SCH (00:06)
--- NOTE | 2017-02-11 02:50 | CON ---
ENDOCRINOLOGY CONSULT LOCATION: Room 371. HISTORY OF PRESENT ILLNESS: This is a 61-year-old male with known history of type 2 diabetes and hypertension, presenting here with right foot cellulitis. He is being referred now for diabetic evaluation because of supervening hyperglycemic accelerations as noted thereof. PAST MEDICAL HISTORY: As mentioned above history of type 2 diabetes, currently on a combination of Januvia given as 100 mg daily and metformin at 500 mg b.i.d. He was previously on Tradjenta given as 5 mg once daily. History of hypertension and dyslipidemia, history of diabetic retinopathy, and polyneuropathy, also history of peripheral arterial disease and vasculopathy with a prior stent placement in the left lower extremity, had a prior elbow and shoulder surgery a few years ago. FAMILY HISTORY: Positive for hypertension and diabetes. SOCIAL HISTORY: The patient has supportive family. Admits to previous history of smoking, but quit few years ago. Also drinks alcohol socially. 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 ALLERGIES: PENICILLIN WITH CUTANEOUS RASH NOTED. REVIEW OF SYSTEMS: As mentioned above, admits to generalized body weakness with easy fatigability and tiredness and suboptimal energy level. Also admits to episodic bouts of dizziness and lightheadedness, worse on the day of admission. No chest pain or palpitations or PND. His oral intake is variable with occasional dyspepsia and constipation. Also admits of recent polyuria and nocturia as noted. PHYSICAL EXAMINATION: GENERAL: This is an overweight male, in no apparent distress. VITAL SIGNS: Blood pressure 160/90, pulse of 70 beats per minute and regular, temperature 99, respirations 20. Height is 6 feet, weight is 229 pounds. HEENT: Head is normocephalic. Eyes: Anicteric with pink conjunctivae. Funduscopy not possible at this time. Ears, nose, and throat are otherwise normal. NECK: Supple. Thyroid gland is normal size. No carotid bruits or cervical adenopathy. CARDIOPULMONARY: Adynamic precordium. S1 and S2 is rapid and regular. LUNGS: Shows scattered rhonchi. ABDOMEN: Flat and soft with positive bowel sounds. EXTREMITIES: No peripheral edema. Pulses are +2 bilaterally. LABORATORY DATA: Chemistry showed a BUN of 13, sodium 132, potassium 4.7, chloride 97, CO2 of 25, glucose 323, and creatinine 0.7. His hemoglobin A1c is 13.6% which is quite elevated and indicative of suboptimal metabolic control with diabetic condition. His glucose levels have ranged from 299 to 327 mg/dL. ASSESSMENT: This is a 61-year-old male with uncontrolled and decompensated type 2 insulin requiring diabetes, presenting here with marked hyperglycemic accelerations and possible secondary pancreatic failure with markedly elevated A1c levels despite oral hypoglycemic drug combination regimen and also have concomitant right foot cellulitis which can also increase insulin resistance thereof. He also has diabetic microvascular complications of retinopathy and polyneuropathy with macrovascular complications of peripheral arterial disease and vasculopathy. PLAN OF MANAGEMENT: As discussed with the patient and staff, we will modify his current insulin regimen and switch him over to a more physiologic basal and bolus insulin drug combination with a stat dose of Lantus to be given as 12 units subcutaneously tonight as ordered. We will order also higher dose of Lantus at 20 units subcutaneously at bedtime daily to start tomorrow night as ordered. We will add NovoLog given as 8 units subcutaneously t.i.d. before meals to start tomorrow morning as ordered. We will modify the coverage scale to avoid hypoglycemia and detailed orders have been given. We will obtain serial chemistries and supplement accordingly as needed. We will also add half normal saline 100 mL per hour to replenish the lost fluid and electrolytes from the increased osmotic diuresis thereof. We will reinforce diabetic education and dietary instructions with healthy food choices at the time of this admission. We will also include insulin self administration techniques to be talked to the patient as he may really have to go home on insulin therapy as mentioned. We will follow. Lilia Dixon MD
[2017-02-11 07:58] LABS: BASO % 0.8 % (0.0-2.0); EOS # 0.3 K/uL (0.0-0.7); EOS % 4.5 % (0.0-4.0); LYMPH # 1.9 K/uL (1.0-4.3); LYMPH % 33.3 % (20.0-40.0); MEAN CELL VOLUME 90.8 fL (80.0-94.0); MEAN CORPUSCULAR HEMOGLOBIN 31.6 pg (27.0-31.0); MEAN CORPUSCULAR HGB CONC 34.8 g/dL (33.0-37.0); MONO # 0.4 K/uL (0.0-0.8); MONO % 7.4 % (0.0-10.0); RED CELL DISTRIBUTION WIDTH 13.3 % (11.5-14.5); WHITE BLOOD COUNT 5.6 K/uL (4.8-10.8)
[2017-02-11 08:43] LABS: CHLORIDE 97 mmol/L (98-107)
[2017-02-11 08:45] LABS: POTASSIUM 4.6 mmol/L (3.6-5.2); SODIUM 132 mmol/L (132-148)
[2017-02-11 08:47] LABS: ALB/GLOB RATIO 1.2 (1.0-2.1); ALKALINE PHOSPHATASE 100 U/L (38-126); ALT/SGPT 48 U/L (21-72); AST/SGOT 31 U/L (17-59); BILIRUBIN,TOTAL 0.7 mg/dL (0.2-1.3); BLOOD UREA NITROGEN 13 mg/dL (9-20); CARBON DIOXIDE 25 mmol/L (22-30); CHOLESTEROL 177 mg/dL (0-199); GFR AFRICAN-AMERICAN > 60; GLUCOSE,RANDOM 265 mg/dL (75-110); PHOSPHOROUS 3.9 mg/dL (2.5-4.5); THYROID STIMULATING HORMONE 0.98 mIU/L (0.46-4.68); TOTAL PROTEIN 7.1 g/dL (6.3-8.3)
[2017-02-11 08:48] LABS: CALCIUM 9.2 mg/dl (8.6-10.4); MAGNESIUM 1.4 mg/dL (1.6-2.3)
[2017-02-11] MEDS: (Novolog) Insulin Aspart, Recombinant 100 u/ml 10 ml vial SC SCH ×7 (09:02→22:02)
[2017-02-11] MEDS ORDERED: Influenza Vaccine 60 mcg/0.5 mL SYR (4YR UP) IM ONE (10:00)
--- NOTE | 2017-02-11 11:40 | CP.PCM.PN ---
Subjective - Date & Time of Evaluation Date of Evaluation: 02/11/17 Time of Evaluation: 10:30 - Subjective Subjective: 61 yo male patient seen foot cellulitic left 2nd toe. Pt reports minor well controlled pain. Pt denies f/n/v/c/sob/cp/weakness/dizziness at this time. Pt has no acute overnight incidents. No new pedal complaints. Objective - Vital Signs/Intake and Output Vital Signs (last 24 hours): Temp Pulse Resp BP Pulse Ox 97.8 F 70 20 136/85 98 02/11/17 08:05 02/11/17 08:05 02/11/17 08:05 02/11/17 08:05 02/11/17 08:05 Intake and Output: 02/11/17 02/11/17 06:59 18:59 Intake Total 1140 Balance 1140 - Medications Medications: Current Medications Acetaminophen (Tylenol 325mg Tab) 650 mg PO Q6 PRN PRN Reason: Pain, Mild (1-3) Last Admin: 02/10/17 10:08 Dose: 650 mg Aspirin (Aspirin Chewable) 81 mg PO DAILY [facility] Clopidogrel Bisulfate (Plavix) 75 mg PO DAILY [facility] Last Admin: 02/10/17 10:07 Dose: 75 mg Dextrose (Dextrose 50% Inj) 0 ml IV STAT PRN; Protocol PRN Reason: Hyglycemia Protocol Dextrose (Glutose 15) 0 gm PO ONCE PRN; Protocol PRN Reason: Hypoglycemia Protocol Enalapril Maleate (Vasotec) 10 mg PO DAILY [facility] Last Admin: 02/10/17 10:03 Dose: 10 mg Famotidine (Pepcid) 20 mg PO BID [facility] Last Admin: 02/10/17 17:25 Dose: 20 mg Glucagon (Glucagen Diagnostic Kit) 0 mg IM STAT PRN; Protocol PRN Reason: Hypoglycemia Protocol Heparin Sodium (Porcine) (Heparin) 5,000 units SC Q8 [facility] Last Admin: 02/11/17 05:58 Dose: Not Given Vancomycin/Sodium Chloride (Vancocin) 1 gm in 200 mls @ 133 mls/hr IVPB Q24H [facility] Stop: 02/15/17 00:01 Last Admin: 02/11/17 00:06 Dose: 133 mls/hr Dextrose (Dextrose 5% In Water 1000 Ml) 1,000 mls @ 0 mls/hr IV .Q0M PRN; Protocol; Per Protocol PRN Reason: Hypoglycemia Protocol Sodium Chloride (Sodium Chloride 0.45%) 1,000 mls @ 100 mls/hr IV .Q10H [facility] Last Admin: 02/10/17 23:55 Dose: 100 mls/hr Insulin Aspart (Novolog) 8 unit SC AC [facility] Last Admin: 02/11/17 09:02 Dose: Not Given Insulin Aspart (Novolog) 0 unit SC ACHS [facility] PRN Reason: Protocol Last Admin: 02/11/17 09:02 Dose: Not Given Insulin Glargine (Lantus) 20 unit SC HS [facility] Ketorolac Tromethamine (Toradol) 30 mg IVP Q6 PRN PRN Reason: Pain, moderate (4-7) Last Admin: 02/11/17 00:08 Dose: 30 mg - Labs Labs: 02/11/17 07:47 02/11/17 07:47 PT 10.7 SECONDS (9.7-12.2) 02/10/17 07:03 INR 1.0 02/10/17 07:03 APTT 41 SECONDS (21-34) H 02/10/17 07:03 - Constitutional Appears: Well, Non-toxic, No Acute Distress - Extremities Exam Additional comments: B/L lower ext exam: VASC- DP/PT pulses faintly palpable, skin temp runs warm to warm (proximal to distal), cap refill <3 sec to all digits NEURO- pedal sensation is grossly diminished DERM-full thickness ulceration noted to medial aspect of left 2nd digit, with fibrogranular base, no purulence, no drainage, no malodor, neg probe to bone, slight erythema noted to left 2nd digit. Macerated wound margins. ORTHO- tender to palpation left 2nd digit, able to wiggle all toes freely - Neurological Exam Neurological Exam: Alert, Awake, Oriented x3 - Psychiatric Exam Psychiatric exam: Normal Affect, Normal Mood Assessment and Plan - Assessment and Plan (Free Text) Assessment: 61 yo diabetic male patient with 1) ulceration of left 2nd digit with possible fracture and possible OM, 2) PAD Plan: Pt S&E at bedside. Plan discussed with attending Dr. Moncaad in detail Chart, labs and vitals reviewed: WBC WNL, CRP is elevated, ESR=37. Wound cx: Streptococcus mitis Blood culture: G(+) cocci Right foot x-ray: irregularity 2nd middle phalanx (osseous destructive changes related to OM vs. non-displaced fx) MRI ordered: middle phalynx OM. Vascular assessment- Dr. Ponce to take pt for angioplasty. Continue IV abx. PICC line access pending. Dressing applied to left foot with betadine & DSD. Podiatry will follow while patient is in house.
--- NOTE | 2017-02-11 11:40 | PCM.SURG1 ---
Surgeon's Initial Post Op Note - Surgeon's Notes Surgeon: Juan F Adan MD Reception: NONE Type of Anesthesia: Local Pre-Operative Diagnosis: Poor venous access Operative Findings: US showed a patent right basilic vein. Post-Operative Diagnosis: Poor venous access Operation Performed: Single lumen picc placement right basilic vein, 37 cm. Tip is in the SVC. Specimen/Specimens Removed: None Estimated Blood Loss: EBL {In ML}: 2 Blood Products Given: N/A Drains Used: No Drains Post-Op Condition: Fair Date of Surgery/Procedure: 02/11/17 Time of Surgery/Procedure: 11:35
[2017-02-11] MEDS ORDERED: Midazolam 2 MG/2 ML VIAL ONE ×3 (13:53→14:30)
[2017-02-11] MEDS ORDERED: Iodixanol 320 MG/ML 200 ML BOTTLE IV ONE (13:56)
--- NOTE | 2017-02-11 14:38 | CT ---
PROCEDURE: CT Angiography Abdomen, Pelvis and Lower Extremity with Contrast HISTORY: PAD, prior stent placement in [facility] COMPARISON: None. TECHNIQUE: Technique: CT angiography of the abdomen, pelvis and bilateral lower extremities performed in the arterial phase of enhancement. Coronal and sagittal reformats, and well as rotating MIP images of the vessels generated at the workstation. Intravenous contrast dose: 150 milliliters Visipaque 320 Radiation dose: Total exam DLP = 3020.41 MGy-cm. This CT exam was performed using one or more of the following dose reduction techniques: Automated exposure control, adjustment of the mA and/or kV according to patient size, and/or use of iterative reconstruction technique. FINDINGS: CT ANGIOGRAPHY: ABDOMINAL AORTA:: MAJOR AORTIC BRANCHES: Celiac [place]: Unremarkable. Superior mesenteric artery: Unremarkable. Inferior mesenteric artery: Unremarkable. Renal arteries: Unremarkable. PELVIC ARTERIES: Right Common Iliac: Unremarkable. Right External Iliac: Unremarkable. Right Internal Iliac: Unremarkable. Left Common Iliac: Unremarkable. Left External Iliac: Unremarkable. Left Internal Iliac: Unremarkable. RIGHT LOWER EXTREMITY ARTERIES: Right Common Femoral: Unremarkable. Right Superficial Femoral: Severe calcific plaque in the mid SFA with severe stenosis. . Right Profunda Femoris: Unremarkable. Right Popliteal:Moderate popliteal artery stenosis. Right Anterior Tibial: Occluded after proximal segment. Right Tibioperoneal Trunk: Moderate stenosis of the distal tibioperoneal artery. Right Posterior Tibial: Occluded Right Peroneal: Patent and unremarkable. Right dorsalis pedis : Unremarkable. LEFT LOWER EXTREMITY ARTERIES: Left Common Femoral: Unremarkable. Left Superficial Femoral: Moderate calcific plaque in the SFA with no spinal stenosis. Left Profunda Femoris: Unremarkable. Left Popliteal: Mild popliteal artery stenosis. Left Anterior Tibial: Occluded. Left Tibioperoneal Trunk: Unremarkable. Left Posterior Tibial: Occluded Left Peroneal: Previously stented peroneal artery is patent. Left Dorsalis pedis: Unremarkable. NON-ANGIOGRAPHIC ASPECT OF THE EXAM: LOWER THORAX: Unremarkable. LIVER: Unremarkable. No gross lesion or ductal dilatation. GALLBLADDER AND BILE DUCTS: Unremarkable. PANCREAS: Unremarkable. No gross lesion or ductal dilatation. SPLEEN: Unremarkable. ADRENALS: Unremarkable. No mass. KIDNEYS AND URETERS: Unremarkable. No hydronephrosis. No solid mass. STOMACH AND BOWEL: Unremarkable. No obstruction. No gross mural thickening. APPENDIX: Normal appendix. PERITONEUM: Unremarkable. No free fluid. No free air. LYMPH NODES: Unremarkable. No enlarged lymph nodes. BLADDER: Unremarkable. REPRODUCTIVE: Unremarkable. BONES: No acute fracture. OTHER FINDINGS: None. IMPRESSION: CT ANGIOGRAM ABDOMEN/ PELVIS: Essentially unremarkable CT angiogram of the abdomen pelvis. LEFT LOWER EXTREMITY CT ANGIOGRAM: 1. Mild plaque throughout the SFA without significant stenosis SFA, common femoral or profunda femoral artery. 2. Mild popliteal artery stenosis. 3. Runoff shows a patent peroneal artery stent and peroneal artery. The anterior tibial artery and posterior tibial artery occluded. RIGHT LOWER EXTREMITY CT ANGIOGRAM: 1. There is severe calcific plaque in the mid SFA with severe stenosis. The distal SFA has mild stenosis. 2. Common femoral artery and profunda femoral artery normal. 3. Moderate stenosis of popliteal artery. 4. Runoff shows a patent peroneal artery. Anterior tibial artery occludes in its proximal segment. The posterior tibial artery is occluded.
--- NOTE | 2017-02-11 15:12 | PCM.SURG1 ---
Surgeon's Initial Post Op Note - Surgeon's Notes Surgeon: Dr. Ponce Animal Nutrition Consultant: Rohit PGY1 Type of Anesthesia: IV Sedation Pre-Operative Diagnosis: Peripheral Artery disease Operative Findings: peroneal artery open to foot, dp open, tibial vessel occluded, one vessel run off via peroneal (see operative report) Post-Operative Diagnosis: Peripheral Artery disease Operation Performed: Aortofemoral bilateral runoff, selective catheterizaton of left femoral artery Specimen/Specimens Removed: N/A Estimated Blood Loss: EBL {In ML}: 15 Blood Products Given: N/A Drains Used: No Drains Post-Op Condition: Good Date of Surgery/Procedure: 02/11/17 Time of Surgery/Procedure: 14:00
--- NOTE | 2017-02-11 15:38 | CP.PCM.PN ---
<Andrea Winston - Last Filed: 02/11/17 18:44> Subjective - Date & Time of Evaluation Date of Evaluation: 02/11/17 Time of Evaluation: 09:00 - Subjective Subjective: PGY-[address] Ruelas Patient seen and examined at bedside. Patient denies acute pain at the moment. Patient denies fever, chills, chest pain, dyspnea, abdominal pain, dysuria. Patient is for LE catheterization later today. Objective - Vital Signs/Intake and Output Vital Signs (last 24 hours): Temp Pulse Resp BP Pulse Ox 97.8 F 70 20 136/85 98 02/11/17 08:05 02/11/17 08:05 02/11/17 08:05 02/11/17 08:05 02/11/17 08:05 Intake and Output: 02/11/17 02/11/17 06:59 18:59 Intake Total 1140 0 Balance 1140 0 - Medications Medications: Current Medications Acetaminophen (Tylenol 325mg Tab) 650 mg PO Q6 PRN PRN Reason: Pain, Mild (1-3) Last Admin: 02/10/17 10:08 Dose: 650 mg Aspirin (Aspirin Chewable) 81 mg PO DAILY [facility] Last Admin: 02/11/17 13:56 Dose: Not Given Clopidogrel Bisulfate (Plavix) 75 mg PO DAILY [facility] Last Admin: 02/11/17 13:57 Dose: Not Given Dextrose (Dextrose 50% Inj) 0 ml IV STAT PRN; Protocol PRN Reason: Hyglycemia Protocol Dextrose (Glutose 15) 0 gm PO ONCE PRN; Protocol PRN Reason: Hypoglycemia Protocol Enalapril Maleate (Vasotec) 10 mg PO DAILY [facility] Last Admin: 02/11/17 10:00 Dose: Not Given Famotidine (Pepcid) 20 mg PO BID [facility] Last Admin: 02/11/17 13:57 Dose: Not Given Glucagon (Glucagen Diagnostic Kit) 0 mg IM STAT PRN; Protocol PRN Reason: Hypoglycemia Protocol Heparin Sodium (Porcine) (Heparin) 5,000 units SC Q8 [facility] Last Admin: 02/11/17 13:56 Dose: Not Given Vancomycin/Sodium Chloride (Vancocin) 1 gm in 200 mls @ 133 mls/hr IVPB Q24H [facility] Stop: 02/15/17 00:01 Last Admin: 02/11/17 00:06 Dose: 133 mls/hr Dextrose (Dextrose 5% In Water 1000 Ml) 1,000 mls @ 0 mls/hr IV .Q0M PRN; Protocol; Per Protocol PRN Reason: Hypoglycemia Protocol Sodium Chloride (Sodium Chloride 0.45%) 1,000 mls @ 100 mls/hr IV .Q10H [facility] Last Admin: 02/10/17 23:55 Dose: 100 mls/hr Insulin Aspart (Novolog) 8 unit SC AC [facility] Last Admin: 02/11/17 11:30 Dose: Not Given Insulin Aspart (Novolog) 0 unit SC ACHS [facility] PRN Reason: Protocol Last Admin: 02/11/17 11:30 Dose: Not Given Insulin Glargine (Lantus) 20 unit SC HS [facility] Ketorolac Tromethamine (Toradol) 30 mg IVP Q6 PRN PRN Reason: Pain, moderate (4-7) Last Admin: 02/11/17 00:08 Dose: 30 mg Oxycodone/Acetaminophen (Percocet 5/325 Mg Tab) 1 tab PO Q4H PRN PRN Reason: Pain, moderate (4-7) Stop: 02/14/17 15:10 - Labs Labs: 02/11/17 07:47 02/11/17 07:47 PT 10.7 SECONDS (9.7-12.2) 02/10/17 07:03 INR 1.0 02/10/17 07:03 APTT 41 SECONDS (21-34) H 02/10/17 07:03 - Constitutional Appears: No Acute Distress - Head Exam Head Exam: ATRAUMATIC, NORMOCEPHALIC - Eye Exam Eye Exam: EOMI, PERRL - ENT Exam ENT Exam: Mucous Membranes Moist - Respiratory Exam Respiratory Exam: Clear to Ausculation Bilateral. absent: Rales, Rhonchi, Wheezes - Cardiovascular Exam Cardiovascular Exam: REGULAR RHYTHM, +S1, +S2 - GI/Abdominal Exam GI & Abdominal Exam: Soft, Normal Bowel Sounds. absent: Tenderness - Extremities Exam Extremities Exam: Tenderness Additional comments: TTP walker, ankle region of left leg. 2nd toe medial aspect - fascia layer visible, no pus or drainage from site. - Neurological Exam Neurological Exam: Alert, Awake, Oriented x3 - Psychiatric Exam Psychiatric exam: Normal Affect, Normal Mood - Skin Skin Exam: Dry, Warm Assessment and Plan - Assessment and Plan (Free Text) Plan: Osteomyelitis of Left 2nd Metatarsal * Podiatry consulted- Dr. Moncada - help appreciated * ESR: 37, CRP: high * Xray: irregularity on 2nd middle phalanx- osseous destructive changes related to osteomyelitis vs. nondisplaced fracture. soft tissue swelling. * Left LE MRI: 1. Prominent signal abnormality with bony destructive changes seen at the 2nd middle phalanx extending into the base of the 2nd distal phalanx with decreased T1 signal, increased STIR signal, and patchy post- contrast enhancement consistent with an acute osteomyelitis. 2. Prominent bony destructive changes seen at the head of the 5th metatarsal bone with patchy decreased T1 signal and increased STIR signal with some adjacent mild reactive changes of the base of the 5th proximal phalanx. This is of uncertain clinical etiology however the sequelae of acute infectious and or inflammatory changes cannot entirely be excluded. Clinical correlation. 3. Prominent reticulation and edema seen within the dorsal subcutaneous soft tissues of the mid and forefoot. 4. Moderate hallux valgus deformity. 5. Mild patchy reactive edema seen within the 3rd middle phalanx, nonspecific. 6. Mild patchy reactive edema seen within the proximal medullary cavity of the 5th metatarsal bone, nonspecific. 7. Mild fraying with increased signal seen within the visualized Lisfranc ligament which may represent a low to moderate grade sprain and or mild partial tearing. Clinical correlation. 8. Mild nonspecific reactive edema seen within the middle cuneiform bone. 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 * Wound cultures: Streptococcus Mitis * Vancomycin 1gm IV Q24hr, not started on Zosyn 2/2 PCN allergy * Toradol PRN pain * Repeat blood cultures ordered on 02/11/17 PVD (peripheral vascular disease) * Hx of left LE stents (2016) * Surgery consulted- Dr. Ponce, help appreciated * Arterial doppler of left LE: f/u results * Angiography results: * Left LE: Mild plaque through SFA without significant stenosis. Mild popliteal artery stenosis. Anterior and posterior tibial artery occluded. * Right LE: Severe calcific plaque in mid SFA with severe stenosis. Distal SFA has mild stenosis. Moderate stenosis of popliteal artery. Anterior tibial artery occluded in proximal segment. Posterior tibial artery is occluded. * Aortofemoral bilateral runoff, selective catheterizaton of left femoral artery performed on 02/11/17 * Continue home medication, Plavix 75mg PO daily Diabetes mellitus * HgA1c: 13.2 * Held home medications 2/2 anticipated angiography * Accuchecks * Consistent carbohydrate diet * ISS-high * Dr. Dixon, intermodal owner operator truck driver consulted, help appreciated. * Endocrinology recommendations: * Lantus 20 mg HS, Novolog 8 units TIDAC, 1/2 NS at 100 cc/hr HTN (hypertension) * Continue home medications- Enalapril 10mg PO daily Prophylactic measure * GI PPX: Pepcid 20mg PO BID * DVT PPX: SCDs- C/I due to infection and PVD, Heparin 5,000 SC * PT Eval Case DW Dr. Odalys Winston PGY-1 <Ion Morrow - Last Filed: 02/12/17 15:12> Objective - Vital Signs/Intake and Output Vital Signs (last 24 hours): Temp Pulse Resp BP Pulse Ox 98.0 F 72 20 133/75 97 02/12/17 08:05 02/12/17 08:05 02/12/17 08:05 02/12/17 10:00 02/12/17 08:05 Intake and Output: 02/12/17 02/12/17 06:59 18:59 Intake Total 1040 1300 Balance 1040 1300 - Medications Medications: Current Medications Acetaminophen (Tylenol 325mg Tab) 650 mg PO Q6 PRN PRN Reason: Pain, Mild (1-3) Last Admin: 02/10/17 10:08 Dose: 650 mg Aspirin (Aspirin Chewable) 81 mg PO DAILY [facility] Last Admin: 02/12/17 09:59 Dose: 81 mg Clopidogrel Bisulfate (Plavix) 75 mg PO DAILY [facility] Last Admin: 02/12/17 09:59 Dose: 75 mg Dextrose (Dextrose 50% Inj) 0 ml IV STAT PRN; Protocol PRN Reason: Hyglycemia Protocol Dextrose (Glutose 15) 0 gm PO ONCE PRN; Protocol PRN Reason: Hypoglycemia Protocol Enalapril Maleate (Vasotec) 10 mg PO DAILY [facility] Last Admin: 02/12/17 10:00 Dose: 10 mg Famotidine (Pepcid) 20 mg PO BID [facility] Last Admin: 02/12/17 10:00 Dose: 20 mg Glucagon (Glucagen Diagnostic Kit) 0 mg IM STAT PRN; Protocol PRN Reason: Hypoglycemia Protocol Heparin Sodium (Porcine) (Heparin) 5,000 units SC Q8 [facility] Last Admin: 02/12/17 13:34 Dose: Not Given Vancomycin/Sodium Chloride (Vancocin) 1 gm in 200 mls @ 133 mls/hr IVPB Q24H [facility] Stop: 02/15/17 00:01 Last Admin: 02/12/17 00:30 Dose: 133 mls/hr Dextrose (Dextrose 5% In Water 1000 Ml) 1,000 mls @ 0 mls/hr IV .Q0M PRN; Protocol; Per Protocol PRN Reason: Hypoglycemia Protocol Sodium Chloride (Sodium Chloride 0.45%) 1,000 mls @ 100 mls/hr IV .Q10H [facility] Last Admin: 02/12/17 06:19 Dose: Not Given Insulin Aspart (Novolog) 0 unit SC ACHS [facility] PRN Reason: Protocol Last Admin: 02/12/17 11:58 Dose: Not Given Insulin Aspart (Novolog) 10 unit SC AC [facility] Insulin Glargine (Lantus) 26 unit SC HS [facility] Oxycodone/Acetaminophen (Percocet 5/325 Mg Tab) 1 tab PO Q4H PRN PRN Reason: Pain, severe (8-10) Stop: 02/14/17 15:10 - Labs Labs: 02/12/17 07:48 02/12/17 07:48 PT 10.7 SECONDS (9.7-12.2) 02/10/17 07:03 INR 1.0 02/10/17 07:03 APTT 41 SECONDS (21-34) H 02/10/17 07:03 Attending/Attestation - Attestation I have personally seen and examined this patient.: Yes I have fully participated in the care of the patient.: Yes I have reviewed all pertinent clinical information, including history, physical exam and plan: Yes Notes (Text): 02/12/17 15:08 Patient was seen nad examined with resident No complain.Had angiogram ,Vessels are open as per surgeon.No intervension needed continue antibiotics and follow ID about discharge and the duration of treatment.On Lantus Patient was seen by Dr Zack GREGORIO.We will discuss about d/c plan with her.
--- NOTE | 2017-02-11 19:07 | CP.PCM.CON ---
History of Present Illness - History of Present Illness History of Present Illness: 61 yo male patient seen in ED today for ulceration and pain to left 2nd toe. Pt says this has been present for 1 week after someone stepped on his toe. Denies seeing any pus or drainage, has been been applying neosporin daily. Complains of tenderness to the 2nd toe which he says is getting worse. Describes as a burning pain. Denies any numbness or tingling. Was seen in office of Dr. Moncada today, Dr. Moncada advised pt to proceed to ED for labs, foot x-ray and note for admission. on admission found to have sever PVD requiring surgical intervention- blood c/ s + wound shows strep mitis PMH: DM, HTN diverticulosis ALL: PCN Meds: see home meds Surg Hx: right ulnar nerve surgery Soc Hx: past smoker (denies current use), drinks 1-2 beers nightly with dinner, denies illicit drug use Review of Systems - Constitutional Constitutional: As Per HPI - EENT Eyes: absent: As Per HPI, Blind Spots, Blurred Vision, Change in Vision, Decreased Night Vision, Diplopia, Discharge, Dry Eye, Exophthalmos, Floaters, Irritation, Itchy Eyes, Loss of Peripheral Vision, Pain, Photophobia, Requires Corrective Lenses, Sees Flashes, Spots in Vision, Tunnel Vision, Other Visual Disturbances, Loss of Vision, Other Ears: absent: As Per HPI, Decreased Hearing, Ear Discharge, Ear Pain, Tinnitus, Abnormal Hearing, Disequilibrium, Dizziness, Other Nose/Mouth/Throat: absent: As Per HPI, Epistaxis, Nasal Congestion, Nasal Discharge, Nasal Obstruction, Nasal Trauma, Nose Pain, Post Nasal Drip, Sinus Pain, Sinus Pressure, Bleeding Gums, Change in Voice, Dental Pain, Dry Mouth, Dysphagia, Halitosis, Hoarsness, Lip Swelling, Mouth Lesions, Mouth Pain, Odynophagia, Sore Throat, Throat Swelling, Tongue Swelling, Facial Pain, Neck Pain, Neck Mass, Other - Cardiovascular Cardiovascular: absent: As Per HPI, Acrocyanosis, Chest Pain, Chest Pain at Rest , Chest Pain with Activity, Claudication, Diaphoresis, Dyspnea, Dyspnea on Exertion, Edema, Irregular Heart Rhythm, Pain Radiating to Arm/Neck/Jaw, Leg Edema, Leg Ulcers, Lightheadedness, Orthopnea, Palpitations, Paroxysmal Nocturnal Dyspnea, Pedal Edema, Radiating Pain, Rapid Heart Rate, Slow Heart Rate, Syncope, Other - Respiratory Respiratory: absent: As Per HPI, Cough, Dyspnea, Hemoptysis, Dyspnea on Exertion , Wheezing, Snoring, Stridor, Pain on Inspiration, Chest Congestion, Excessive Mucous Production, Change in Mucous Color, Pain with Coughing, Other - Gastrointestinal Gastrointestinal: absent: As Per HPI, Abdominal Pain, Belching, Bloating, Change in Bowel Habits, Change in Stool Character, Coffee Ground Emesis, Constipation, Cramping, Diarrhea, Dyspepsia, Dysphagia, Early Satiety, Excessive Flatus, Fecal Incontinence, Heartburn, Hematemesis, Hematochezia, Loose Stools, Melena, Nausea, Odynophagia, Temesmus, Vomiting, Other - Genitourinary Genitourinary: absent: As Per HPI, Change in Urinary Stream, Difficulty Urinating, Dysuria, Flank Pain, Hematuria, Pyuria, Nocturia, Urinary Incontinence, Urinary Frequency, Urinary Hesitance, Urinary Urgency, Voiding Freq/Small Amts, Freq UTI, Hx Renal/Bladder Calculi, Hx /Renal Surgery, Bladder Distension, Other - Musculoskeletal Musculoskeletal: As Per HPI - Integumentary Integumentary: As Per HPI - Neurological Neurological: As Per HPI - Psychiatric Psychiatric: absent: As Per HPI, Abnormal Sleep Pattern, Anhedonia, Anxiety, Auditory Hallucinations, Behavioral Changes, Change in Appetite, Change in Libido, Confusion, Depression, Difficulty Concentrating, Hallucinations, Homicidal Ideation, Hopelessness, Irritability, Memory Loss, Mood Swings, Panic Attacks, Paranoia, Suicidal Ideation, Visual Hallucinations, Tactile Hallucinations, Other - Endocrine Endocrine: absent: As Per HPI, Change in Body Appearance, Change in Libido, Cold Intolorance, Deepening of Voice, Excessive Sweating, Fatigue, Flushing, Heat Intolorance, Increase in Ring/Shoe/Hat Size, Palpitations, Polydipsia, Polyphagia, Polyuria, Other - Hematologic/Lymphatic Hematologic: absent: As Per HPI, Easy Bleeding, Easy Bruising, Lymphadenopathy, Other Past Patient History - Infectious Disease Hx of Infectious Diseases: None - Past Medical History & Family History Past Medical History?: Yes - Past Social History Smoking Status: Former Smoker - CARDIAC Hx Hypertension: Yes - PULMONARY Hx Bronchitis: Yes - NEUROLOGICAL Hx Neurological Disorder: No - HEENT Hx HEENT Problems: No - RENAL Hx Chronic Kidney Disease: No - ENDOCRINE/METABOLIC Hx Diabetes Mellitus Type 2: Yes - HEMATOLOGICAL/ONCOLOGICAL Hx Blood Disorders: No - INTEGUMENTARY Hx Dermatological Problems: Yes Other/Comment: HX: LEFT FOOT ULCER. HX: OSTEOMYELITIS - MUSCULOSKELETAL/RHEUMATOLOGICAL Hx Musculoskeletal Disorders: No Hx Falls: No - GASTROINTESTINAL Hx Diverticulitis: Yes - GENITOURINARY/GYNECOLOGICAL Hx Genitourinary Disorders: No - PSYCHIATRIC Hx Substance Use: No - SURGICAL HISTORY Hx Surgeries: Yes Hx Angiogram: Yes (ABDOMINAL) Hx Eye Surgery: Yes (R eye cataract/ Lasek) Hx Orthopedic Surgery: Yes (L 5th finger, R elbow) Other/Comment: L wrist /L hand ganglion cyst removed. HX: PICC LINE INSERTION - ANESTHESIA Hx Anesthesia: Yes Hx Anesthesia Reactions: No Hx Malignant Hyperthermia: No Meds Allergies/Adverse Reactions: Allergies Allergy/AdvReac Type Severity Reaction Status Date / Time Penicillins Allergy Verified 01/16/16 13:30 - Medications Medications: Current Medications Acetaminophen (Tylenol 325mg Tab) 650 mg PO Q6 PRN PRN Reason: Pain, Mild (1-3) Last Admin: 02/10/17 10:08 Dose: 650 mg Aspirin (Aspirin Chewable) 81 mg PO DAILY [facility] Last Admin: 02/11/17 13:56 Dose: Not Given Clopidogrel Bisulfate (Plavix) 75 mg PO DAILY [facility] Last Admin: 02/11/17 13:57 Dose: Not Given Dextrose (Dextrose 50% Inj) 0 ml IV STAT PRN; Protocol PRN Reason: Hyglycemia Protocol Dextrose (Glutose 15) 0 gm PO ONCE PRN; Protocol PRN Reason: Hypoglycemia Protocol Enalapril Maleate (Vasotec) 10 mg PO DAILY [facility] Last Admin: 02/11/17 10:00 Dose: Not Given Famotidine (Pepcid) 20 mg PO BID [facility] Last Admin: 02/11/17 18:01 Dose: 20 mg Glucagon (Glucagen Diagnostic Kit) 0 mg IM STAT PRN; Protocol PRN Reason: Hypoglycemia Protocol Heparin Sodium (Porcine) (Heparin) 5,000 units SC Q8 [facility] Last Admin: 02/11/17 13:56 Dose: Not Given Vancomycin/Sodium Chloride (Vancocin) 1 gm in 200 mls @ 133 mls/hr IVPB Q24H [facility] Stop: 02/15/17 00:01 Last Admin: 02/11/17 00:06 Dose: 133 mls/hr Dextrose (Dextrose 5% In Water 1000 Ml) 1,000 mls @ 0 mls/hr IV .Q0M PRN; Protocol; Per Protocol PRN Reason: Hypoglycemia Protocol Sodium Chloride (Sodium Chloride 0.45%) 1,000 mls @ 100 mls/hr IV .Q10H [facility] Last Admin: 02/10/17 23:55 Dose: 100 mls/hr Insulin Aspart (Novolog) 8 unit SC AC [facility] Last Admin: 02/11/17 16:30 Dose: 8 unit Insulin Aspart (Novolog) 0 unit SC ACHS [facility] PRN Reason: Protocol Last Admin: 02/11/17 16:30 Dose: 2 unit Insulin Glargine (Lantus) 20 unit SC HS [facility] Ketorolac Tromethamine (Toradol) 30 mg IVP Q6 PRN PRN Reason: Pain, moderate (4-7) Last Admin: 02/11/17 00:08 Dose: 30 mg Oxycodone/Acetaminophen (Percocet 5/325 Mg Tab) 1 tab PO Q4H PRN PRN Reason: Pain, severe (8-10) Stop: 02/14/17 15:10 Physical Exam - Constitutional Appears: Non-toxic, Chronically Ill - Head Exam Head Exam: NORMOCEPHALIC - Eye Exam Eye Exam: PERRL - ENT Exam ENT Exam: Mucous Membranes Dry, Normal External Ear Exam - Neck Exam Neck exam: Negative for: Lymphadenopathy - Respiratory Exam Respiratory Exam: Decreased Breath Sounds - Cardiovascular Exam Cardiovascular Exam: REGULAR RHYTHM - GI/Abdominal Exam GI & Abdominal Exam: Diminished Bowel Sounds, Soft. absent: Tenderness - Rectal Exam Rectal Exam: Deferred - Exam Exam: NORMAL INSPECTION - Extremities Exam Extremities exam: Positive for: pedal edema, tenderness, pedal pulses present. Negative for: calf tenderness Additional comments: ulcer left 2nd digit - Back Exam Back exam: absent: CVA tenderness (L), CVA tenderness (R) - Neurological Exam Neurological exam: Alert, CN II-XII Intact, Oriented x3, Reflexes Normal - Psychiatric Exam Psychiatric exam: Normal Mood - Skin Skin Exam: Dry, Intact Results - Vital Signs Recent Vital Signs: Last Vital Signs Temp 97.3 F L 02/11/17 16:00 Pulse 62 02/11/17 16:00 Resp 20 02/11/17 16:00 BP 117/66 02/11/17 16:00 Pulse Ox 98 02/11/17 16:00 - Labs Result Diagrams: 02/11/17 07:47 02/11/17 07:47 Labs: Laboratory Results - last 24 hr 02/10/17 02/11/17 02/11/17 21:06 06:53 07:47 WBC 5.6 RBC 4.30 L Hgb 13.6 Hct 39.0 MCV 90.8 MCH 31.6 H MCHC 34.8 RDW 13.3 Plt Count 258 MPV 8.0 Neut % (Auto) 54.0 Lymph % (Auto) 33.3 [place] % (Auto) 7.4 Eos % (Auto) 4.5 H Baso % (Auto) 0.8 Neut # 3.0 Lymph # 1.9 [place] # 0.4 Eos # 0.3 Baso # 0.0 Sodium Potassium Chloride Carbon Dioxide Anion Gap BUN Creatinine Est GFR ( Amer) Est GFR (Non-Af Amer) POC Glucose (mg/dL) 292 H 300 H Random Glucose Calcium Phosphorus Magnesium Total Bilirubin AST ALT Alkaline Phosphatase Total Protein Albumin Globulin Albumin/Globulin Ratio Triglycerides Cholesterol LDL Cholesterol Direct HDL Cholesterol TSH 3rd Generation 02/11/17 02/11/17 02/11/17 07:47 12:00 16:37 WBC RBC Hgb Hct MCV MCH MCHC RDW Plt Count MPV Neut % (Auto) Lymph % (Auto) [place] % (Auto) Eos % (Auto) Baso % (Auto) Neut # Lymph # [place] # Eos # Baso # Sodium 132 Potassium 4.6 Chloride 97 L Carbon Dioxide 25 Anion Gap 14 BUN 13 Creatinine 0.7 L Est GFR ( Amer) > 60 Est GFR (Non-Af Amer) > 60 POC Glucose (mg/dL) 210 H 274 H Random Glucose 265 H Calcium 9.2 Phosphorus 3.9 Magnesium 1.4 L Total Bilirubin 0.7 AST 31 ALT 48 Alkaline Phosphatase 100 Total Protein 7.1 Albumin 3.8 Globulin 3.3 Albumin/Globulin Ratio 1.2 Triglycerides 243 H Cholesterol 177 LDL Cholesterol Direct 100 HDL Cholesterol 52 TSH 3rd Generation 0.98 Assessment & Plan (1) Cellulitis Status: Acute (2) Diabetes mellitus Status: Acute (3) PVD (peripheral vascular disease) Status: Acute (4) HTN (hypertension) Status: Acute (5) PAD (peripheral artery disease) Status: Acute - Assessment and Plan (Free Text) Assessment: consider mri left foot blood isolate likely a contaminant cont iv antibiotic and wound care
[2017-02-11] MEDS: Sodium Chloride 0.45% 1,000 ML IV SCH (19:30)
--- NOTE | 2017-02-11 21:05 | PN ---
ENDO FOLLOWUP NOTE LOCATION: Room 371. This is a 61-year-old male with recent uncontrolled type 2 insulin requiring diabetes now being followed closely for metabolic management. His glycemic levels are fluctuating with today's glucose values ranging from 274 to 300 mg/dL. It was 292 to 299 at bedtime last night. His latest chemistries showed a BUN of 13, sodium 132, potassium 4.6, chloride 97, CO2 of 25, glucose 265 and creatinine 0.7. So at this time we will modify once again his basal and bolus insulin regimen to allow for improved metabolic profile specially in the light of underlying left foot cellulitis and underlying severe peripheral arterial vasculopathy as noted. We will increase the Lantus to 20 unit subcu at bedtime daily to start tonight. We will also increase the Novolog to 8 units subcu t.i.d. before meals to start at dinner time today as ordered. We will modify the coverage scale to avoid hypoglycemia and detailed orders have been given. We will obtain serial chemistries and supplement accordingly as needed. We will follow. Lilia Dixon MD
[2017-02-11] MEDS ORDERED: (Lantus) Insulin Glargine, Recombinant SC SCH (22:00)
[2017-02-12] MEDS: Vancomycin 1 gm/NS 200 ml 1 GM/200 ML BAG IVPB SCH ×2 (00:30→23:55)
[2017-02-12] MEDS: Sodium Chloride 0.45% 1,000 ML IV SCH ×3 (06:19→19:16)
--- NOTE | 2017-02-12 07:21 | CP.PCM.PN ---
<Andrea Winston S - Last Filed: 02/12/17 15:58> Subjective - Subjective Subjective: PGY-[address] Morrow Patient seen and examined at bedside. Patient reports feeling well. Patient denies fever, chills, chest pain, dyspnea, abdominal pain, dysuria. Patient is s /p day 1 of left femoral artery catheterization. Objective - Vital Signs/Intake and Output Vital Signs (last 24 hours): Temp Pulse Resp BP Pulse Ox 97.6 F 67 20 143/78 98 02/12/17 00:50 02/12/17 00:50 02/12/17 00:50 02/12/17 00:50 02/12/17 00:50 Intake and Output: 02/12/17 02/12/17 06:59 18:59 Intake Total 1040 Balance 1040 - Medications Medications: Current Medications Acetaminophen (Tylenol 325mg Tab) 650 mg PO Q6 PRN PRN Reason: Pain, Mild (1-3) Last Admin: 02/10/17 10:08 Dose: 650 mg Aspirin (Aspirin Chewable) 81 mg PO DAILY [facility] Last Admin: 02/11/17 13:56 Dose: Not Given Clopidogrel Bisulfate (Plavix) 75 mg PO DAILY [facility] Last Admin: 02/11/17 13:57 Dose: Not Given Dextrose (Dextrose 50% Inj) 0 ml IV STAT PRN; Protocol PRN Reason: Hyglycemia Protocol Dextrose (Glutose 15) 0 gm PO ONCE PRN; Protocol PRN Reason: Hypoglycemia Protocol Enalapril Maleate (Vasotec) 10 mg PO DAILY [facility] Last Admin: 02/11/17 10:00 Dose: Not Given Famotidine (Pepcid) 20 mg PO BID [facility] Last Admin: 02/11/17 18:01 Dose: 20 mg Glucagon (Glucagen Diagnostic Kit) 0 mg IM STAT PRN; Protocol PRN Reason: Hypoglycemia Protocol Heparin Sodium (Porcine) (Heparin) 5,000 units SC Q8 [facility] Last Admin: 02/12/17 06:18 Dose: Not Given Vancomycin/Sodium Chloride (Vancocin) 1 gm in 200 mls @ 133 mls/hr IVPB Q24H [facility] Stop: 02/15/17 00:01 Last Admin: 02/12/17 00:30 Dose: 133 mls/hr Dextrose (Dextrose 5% In Water 1000 Ml) 1,000 mls @ 0 mls/hr IV .Q0M PRN; Protocol; Per Protocol PRN Reason: Hypoglycemia Protocol Sodium Chloride (Sodium Chloride 0.45%) 1,000 mls @ 100 mls/hr IV .Q10H [facility] Last Admin: 02/12/17 06:19 Dose: Not Given Insulin Aspart (Novolog) 8 unit SC AC [facility] Last Admin: 02/11/17 16:30 Dose: 8 unit Insulin Aspart (Novolog) 0 unit SC ACHS [facility] PRN Reason: Protocol Last Admin: 02/11/17 22:02 Dose: Not Given Insulin Glargine (Lantus) 20 unit SC HS [facility] Last Admin: 02/11/17 22:01 Dose: 20 units Ketorolac Tromethamine (Toradol) 30 mg IVP Q6 PRN PRN Reason: Pain, moderate (4-7) Last Admin: 02/12/17 06:15 Dose: 30 mg Oxycodone/Acetaminophen (Percocet 5/325 Mg Tab) 1 tab PO Q4H PRN PRN Reason: Pain, severe (8-10) Stop: 02/14/17 15:10 - Labs Labs: 02/11/17 07:47 02/11/17 07:47 PT 10.7 SECONDS (9.7-12.2) 02/10/17 07:03 INR 1.0 02/10/17 07:03 APTT 41 SECONDS (21-34) H 02/10/17 07:03 - Constitutional Appears: No Acute Distress - Head Exam Head Exam: ATRAUMATIC, NORMOCEPHALIC - Eye Exam Eye Exam: EOMI, PERRL - ENT Exam ENT Exam: Mucous Membranes Moist - Respiratory Exam Respiratory Exam: Clear to Ausculation Bilateral. absent: Rales, Rhonchi, Wheezes - Cardiovascular Exam Cardiovascular Exam: REGULAR RHYTHM, +S1, +S2 - GI/Abdominal Exam GI & Abdominal Exam: Soft, Normal Bowel Sounds. absent: Tenderness - Extremities Exam Additional comments: TTP walker, ankle region of left leg. 2nd toe medial aspect - fascia layer visible, no pus or drainage from site. Dressings c/d/i - Neurological Exam Neurological Exam: Alert, Awake, Oriented x3 - Psychiatric Exam Psychiatric exam: Normal Affect, Normal Mood - Skin Skin Exam: Dry, Warm Assessment and Plan - Assessment and Plan (Free Text) Plan: Osteomyelitis of Left 2nd Metatarsal * Podiatry consulted- Dr. Moncada - help appreciated * ID Dr. Rain consulted, help appreciated. * ESR: 37, CRP: high * Xray: irregularity on 2nd middle phalanx- osseous destructive changes related to osteomyelitis vs. nondisplaced fracture. soft tissue swelling. * Left LE MRI: 1. Prominent signal abnormality with bony destructive changes seen at the 2nd middle phalanx extending into the base of the 2nd distal phalanx with decreased T1 signal, increased STIR signal, and patchy post- contrast enhancement consistent with an acute osteomyelitis. 2. Prominent bony destructive changes seen at the head of the 5th metatarsal bone with patchy decreased T1 signal and increased STIR signal with some adjacent mild reactive changes of the base of the 5th proximal phalanx. This is of uncertain clinical etiology however the sequelae of acute infectious and or inflammatory changes cannot entirely be excluded. Clinical correlation. 3. Prominent reticulation and edema seen within the dorsal subcutaneous soft tissues of the mid and forefoot. 4. Moderate hallux valgus deformity. 5. Mild patchy reactive edema seen within the 3rd middle phalanx, nonspecific. 6. Mild patchy reactive edema seen within the proximal medullary cavity of the 5th metatarsal bone, nonspecific. 7. Mild fraying with increased signal seen within the visualized Lisfranc ligament which may represent a low to moderate grade sprain and or mild partial tearing. Clinical correlation. 8. Mild nonspecific reactive edema seen within the middle cuneiform bone. 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 Rain believes is a contaminant. * Wound cultures: Streptococcus Mitis * Vancomycin 1gm IV Q24hr, not started on Zosyn 2/2 PCN allergy * Toradol PRN pain * Repeat blood cultures ordered on 02/11/17 * Per conversation with Dr. Rain, since patient with PCN allergy, will do Cubicin 6 mg/kg IV daily for 6 weeks as outpatient infusion. Pending discharge Wednesday after antibiotic dose for infusion to begin on Wednesday. PVD (peripheral vascular disease) * Hx of left LE stents (2015) * Surgery consulted- Dr. Ponce, help appreciated * Arterial doppler of left LE: f/u results * Angiography results: * Left LE: Mild plaque through SFA without significant stenosis. Mild popliteal artery stenosis. Anterior and posterior tibial artery occluded. * Right LE: Severe calcific plaque in mid SFA with severe stenosis. Distal SFA has mild stenosis. Moderate stenosis of popliteal artery. Anterior tibial artery occluded in proximal segment. Posterior tibial artery is occluded. * Aortofemoral bilateral runoff, selective catheterizaton of left femoral artery performed on 02/11/17 * Continue home medication, Plavix 75mg PO daily Diabetes mellitus * HgA1c: 13.2 * Held home medications 2/2 anticipated angiography * Accuchecks * Consistent carbohydrate diet * ISS-high * Dr. Dixon, newspaper photographer consulted, help appreciated. * Endocrinology recommendations: * Lantus 26 mg HS, Novolog 10 units TIDAC, 1/2 NS at 100 cc/hr Discussed patient's new home prescription from his PMD: Tresiba 200 units Q7D and Janumet which he has filled but has not started taking yet with Dr. Dixon over the phone. Dr. Dixon believes that the patient will still need mealtime coverage in addition to basal insulin. Per her recommendations, patient may take his Tresiba weekly and his Janumet BID but will also need prandial insulin coverage three times daily. HTN (hypertension) * Continue home medications- Enalapril 10mg PO daily Prophylactic measure * GI PPX: Pepcid 20mg PO BID * DVT PPX: SCDs- C/I due to infection and PVD, Heparin 5,000 SC * PT Eval Disposition: Pending Discharge on Wednesday to begin Infusion Center on Wednesday Case JOSIAH Winston PGY-1 <Ion Mororw - Last Filed: 02/12/17 17:47> Subjective - Date & Time of Evaluation Date of Evaluation: 02/12/17 Time of Evaluation: 15:55 Objective - Vital Signs/Intake and Output Vital Signs (last 24 hours): Temp Pulse Resp BP Pulse Ox 98.3 F 82 20 116/73 95 02/12/17 16:00 02/12/17 16:00 02/12/17 16:00 02/12/17 16:00 02/12/17 16:00 Intake and Output: 02/12/17 02/12/17 06:59 18:59 Intake Total 1040 1300 Balance 1040 1300 - Medications Medications: Current Medications Acetaminophen (Tylenol 325mg Tab) 650 mg PO Q6 PRN PRN Reason: Pain, Mild (1-3) Last Admin: 02/10/17 10:08 Dose: 650 mg Aspirin (Aspirin Chewable) 81 mg PO DAILY [facility] Last Admin: 02/12/17 09:59 Dose: 81 mg Clopidogrel Bisulfate (Plavix) 75 mg PO DAILY [facility] Last Admin: 02/12/17 09:59 Dose: 75 mg Dextrose (Dextrose 50% Inj) 0 ml IV STAT PRN; Protocol PRN Reason: Hyglycemia Protocol Dextrose (Glutose 15) 0 gm PO ONCE PRN; Protocol PRN Reason: Hypoglycemia Protocol Enalapril Maleate (Vasotec) 10 mg PO DAILY [facility] Last Admin: 02/12/17 10:00 Dose: 10 mg Famotidine (Pepcid) 20 mg PO BID [facility] Last Admin: 02/12/17 17:28 Dose: 20 mg Glucagon (Glucagen Diagnostic Kit) 0 mg IM STAT PRN; Protocol PRN Reason: Hypoglycemia Protocol Heparin Sodium (Porcine) (Heparin) 5,000 units SC Q8 [facility] Last Admin: 02/12/17 13:34 Dose: Not Given Vancomycin/Sodium Chloride (Vancocin) 1 gm in 200 mls @ 133 mls/hr IVPB Q24H [facility] Stop: 02/15/17 00:01 Last Admin: 02/12/17 00:30 Dose: 133 mls/hr Dextrose (Dextrose 5% In Water 1000 Ml) 1,000 mls @ 0 mls/hr IV .Q0M PRN; Protocol; Per Protocol PRN Reason: Hypoglycemia Protocol Sodium Chloride (Sodium Chloride 0.45%) 1,000 mls @ 100 mls/hr IV .Q10H [facility] Last Admin: 02/12/17 06:19 Dose: Not Given Insulin Aspart (Novolog) 0 unit SC ACHS [facility] PRN Reason: Protocol Last Admin: 02/12/17 17:29 Dose: 3 unit Insulin Aspart (Novolog) 10 unit SC AC [facility] Last Admin: 02/12/17 17:28 Dose: 10 unit Insulin Glargine (Lantus) 26 unit SC HS [facility] Oxycodone/Acetaminophen (Percocet 5/325 Mg Tab) 1 tab PO Q4H PRN PRN Reason: Pain, severe (8-10) Stop: 02/14/17 15:10 - Labs Labs: 02/12/17 07:48 02/12/17 07:48 PT 10.7 SECONDS (9.7-12.2) 02/10/17 07:03 INR 1.0 02/10/17 07:03 APTT 41 SECONDS (21-34) H 02/10/17 07:03 Attending/Attestation - Attestation I have personally seen and examined this patient.: Yes I have fully participated in the care of the patient.: Yes I have reviewed all pertinent clinical information, including history, physical exam and plan: Yes Notes (Text): Patient was seen and examined today.Discussed about sugar control and medication plan.Patient will be seen by DR Dixon today.Possible discharge on Wednesday to start his Cubicin infusion.Plan discussed with ID.Residents notes reviewed.Agreed with the plan 02/12/17 17:41
[2017-02-12 08:05] LABS: BASO % 0.6 % (0.0-2.0); EOS # 0.2 K/uL (0.0-0.7); HEMATOCRIT 36.5 % (35.0-51.0); LYMPH # 1.8 K/uL (1.0-4.3); LYMPH % 33.1 % (20.0-40.0); MEAN CELL VOLUME 91.1 fL (80.0-94.0); MEAN CORPUSCULAR HEMOGLOBIN 31.4 pg (27.0-31.0); MEAN CORPUSCULAR HGB CONC 34.5 g/dL (33.0-37.0); MEAN PLATELET VOLUME 8.1 fL (7.2-11.7); MONO # 0.4 K/uL (0.0-0.8); MONO % 8.1 % (0.0-10.0); RED CELL DISTRIBUTION WIDTH 13.1 % (11.5-14.5); WHITE BLOOD COUNT 5.4 K/uL (4.8-10.8)
[2017-02-12 08:19] LABS: CHLORIDE 96 mmol/L (98-107)
[2017-02-12 08:20] LABS: POTASSIUM 4.2 mmol/L (3.6-5.2); SODIUM 132 mmol/L (132-148)
[2017-02-12 08:22] LABS: ALB/GLOB RATIO 1.2 (1.0-2.1); ALKALINE PHOSPHATASE 88 U/L (38-126); AST/SGOT 27 U/L (17-59); BILIRUBIN,TOTAL 0.5 mg/dL (0.2-1.3); BLOOD UREA NITROGEN 14 mg/dL (9-20); CARBON DIOXIDE 25 mmol/L (22-30); GFR AFRICAN-AMERICAN > 60; GLUCOSE,RANDOM 251 mg/dL (75-110); TOTAL PROTEIN 6.5 g/dL (6.3-8.3)
[2017-02-12 08:23] LABS: ALT/SGPT 40 U/L (21-72); PHOSPHOROUS 4.1 mg/dL (2.5-4.5)
[2017-02-12] MEDS: (Novolog) Insulin Aspart, Recombinant 100 u/ml 10 ml vial SC SCH ×7 (08:37→21:22)
--- NOTE | 2017-02-12 08:46 | CP.PCM.PN ---
Subjective - Date & Time of Evaluation Date of Evaluation: 02/12/17 Time of Evaluation: 07:00 - Subjective Subjective: General Surgery Note for Dr. Ponce Patient seen and examined at bedside and in no acute distress. Patient pod 1 s/ p catheterization of left femoral artery. Patient has no pain at incision site. Patient has some mild left toe pain up to his knee. Patient denies n/v, c/d. Objective - Vital Signs/Intake and Output Vital Signs (last 24 hours): Temp Pulse Resp BP Pulse Ox 98.0 F 72 20 133/75 97 02/12/17 08:05 02/12/17 08:05 02/12/17 08:05 02/12/17 08:05 02/12/17 08:05 Intake and Output: 02/12/17 02/12/17 06:59 18:59 Intake Total 1040 Balance 1040 - Medications Medications: Current Medications Acetaminophen (Tylenol 325mg Tab) 650 mg PO Q6 PRN PRN Reason: Pain, Mild (1-3) Last Admin: 02/10/17 10:08 Dose: 650 mg Aspirin (Aspirin Chewable) 81 mg PO DAILY [facility] Last Admin: 02/11/17 13:56 Dose: Not Given Clopidogrel Bisulfate (Plavix) 75 mg PO DAILY [facility] Last Admin: 02/11/17 13:57 Dose: Not Given Dextrose (Dextrose 50% Inj) 0 ml IV STAT PRN; Protocol PRN Reason: Hyglycemia Protocol Dextrose (Glutose 15) 0 gm PO ONCE PRN; Protocol PRN Reason: Hypoglycemia Protocol Enalapril Maleate (Vasotec) 10 mg PO DAILY [facility] Last Admin: 02/11/17 10:00 Dose: Not Given Famotidine (Pepcid) 20 mg PO BID [facility] Last Admin: 02/11/17 18:01 Dose: 20 mg Glucagon (Glucagen Diagnostic Kit) 0 mg IM STAT PRN; Protocol PRN Reason: Hypoglycemia Protocol Heparin Sodium (Porcine) (Heparin) 5,000 units SC Q8 [facility] Last Admin: 02/12/17 06:18 Dose: Not Given Vancomycin/Sodium Chloride (Vancocin) 1 gm in 200 mls @ 133 mls/hr IVPB Q24H [facility] Stop: 02/15/17 00:01 Last Admin: 02/12/17 00:30 Dose: 133 mls/hr Dextrose (Dextrose 5% In Water 1000 Ml) 1,000 mls @ 0 mls/hr IV .Q0M PRN; Protocol; Per Protocol PRN Reason: Hypoglycemia Protocol Sodium Chloride (Sodium Chloride 0.45%) 1,000 mls @ 100 mls/hr IV .Q10H [facility] Last Admin: 02/12/17 06:19 Dose: Not Given Insulin Aspart (Novolog) 8 unit SC AC [facility] Last Admin: 02/12/17 08:37 Dose: 8 unit Insulin Aspart (Novolog) 0 unit SC ACHS [facility] PRN Reason: Protocol Last Admin: 02/12/17 08:38 Dose: 2 unit Insulin Glargine (Lantus) 20 unit SC HS [facility] Last Admin: 02/11/17 22:01 Dose: 20 units Ketorolac Tromethamine (Toradol) 30 mg IVP Q6 PRN PRN Reason: Pain, moderate (4-7) Last Admin: 02/12/17 06:15 Dose: 30 mg Oxycodone/Acetaminophen (Percocet 5/325 Mg Tab) 1 tab PO Q4H PRN PRN Reason: Pain, severe (8-10) Stop: 02/14/17 15:10 - Labs Labs: 02/12/17 07:48 02/12/17 07:48 PT 10.7 SECONDS (9.7-12.2) 02/10/17 07:03 INR 1.0 02/10/17 07:03 APTT 41 SECONDS (21-34) H 02/10/17 07:03 - Constitutional Appears: Non-toxic, No Acute Distress - Head Exam Head Exam: ATRAUMATIC, NORMAL INSPECTION, NORMOCEPHALIC - Eye Exam Eye Exam: EOMI, Normal appearance - ENT Exam ENT Exam: Mucous Membranes Moist - Respiratory Exam Respiratory Exam: NORMAL BREATHING PATTERN. absent: Accessory Muscle Use, Respiratory Distress - Cardiovascular Exam Cardiovascular Exam: REGULAR RHYTHM, +S1, +S2 - GI/Abdominal Exam GI & Abdominal Exam: Soft. absent: Tenderness - Extremities Exam Additional comments: incision covered in dry, clean, intact dressing - Neurological Exam Neurological Exam: Alert, Awake, Oriented x3 - Psychiatric Exam Psychiatric exam: Normal Affect, Normal Mood - Skin Skin Exam: Intact, Normal Color, Warm Assessment and Plan - Assessment and Plan (Free Text) Assessment: 61 y/o male w/ left foot wound, POD 1 s/p catheterization of left femoral artery Plan: -continue medical management as per primary -no further surgical intervention at this time -possible bypass in future if wound doesn't heal -please re-consult if needed -d/w Dr. Ponce
--- NOTE | 2017-02-12 09:42 | CP.PCM.PN ---
Subjective - Date & Time of Evaluation Date of Evaluation: 02/12/17 Time of Evaluation: 09:40 - Subjective Subjective: 61 y/o male patient seen at bedside by Dr. Moncada for left 2nd toe cellulits. Pt reports minor well controlled pain. Pt denies f/n/v/c/sob/cp/weakness/ dizziness at this time. Pt has no acute overnight incidents. Pt underwent revascularization and PICC line insertion yesterday. No new pedal complaints. Objective - Vital Signs/Intake and Output Vital Signs (last 24 hours): Temp Pulse Resp BP Pulse Ox 98.0 F 72 20 133/75 97 02/12/17 08:05 02/12/17 08:05 02/12/17 08:05 02/12/17 08:05 02/12/17 08:05 Intake and Output: 02/12/17 02/12/17 06:59 18:59 Intake Total 1040 Balance 1040 - Medications Medications: Current Medications Acetaminophen (Tylenol 325mg Tab) 650 mg PO Q6 PRN PRN Reason: Pain, Mild (1-3) Last Admin: 02/10/17 10:08 Dose: 650 mg Aspirin (Aspirin Chewable) 81 mg PO DAILY [facility] Last Admin: 02/11/17 13:56 Dose: Not Given Clopidogrel Bisulfate (Plavix) 75 mg PO DAILY [facility] Last Admin: 02/11/17 13:57 Dose: Not Given Dextrose (Dextrose 50% Inj) 0 ml IV STAT PRN; Protocol PRN Reason: Hyglycemia Protocol Dextrose (Glutose 15) 0 gm PO ONCE PRN; Protocol PRN Reason: Hypoglycemia Protocol Enalapril Maleate (Vasotec) 10 mg PO DAILY [facility] Last Admin: 02/11/17 10:00 Dose: Not Given Famotidine (Pepcid) 20 mg PO BID [facility] Last Admin: 02/11/17 18:01 Dose: 20 mg Glucagon (Glucagen Diagnostic Kit) 0 mg IM STAT PRN; Protocol PRN Reason: Hypoglycemia Protocol Heparin Sodium (Porcine) (Heparin) 5,000 units SC Q8 [facility] Last Admin: 02/12/17 06:18 Dose: Not Given Vancomycin/Sodium Chloride (Vancocin) 1 gm in 200 mls @ 133 mls/hr IVPB Q24H [facility] Stop: 02/15/17 00:01 Last Admin: 02/12/17 00:30 Dose: 133 mls/hr Dextrose (Dextrose 5% In Water 1000 Ml) 1,000 mls @ 0 mls/hr IV .Q0M PRN; Protocol; Per Protocol PRN Reason: Hypoglycemia Protocol Sodium Chloride (Sodium Chloride 0.45%) 1,000 mls @ 100 mls/hr IV .Q10H [facility] Last Admin: 02/12/17 06:19 Dose: Not Given Insulin Aspart (Novolog) 8 unit SC AC [facility] Last Admin: 02/12/17 08:37 Dose: 8 unit Insulin Aspart (Novolog) 0 unit SC ACHS [facility] PRN Reason: Protocol Last Admin: 02/12/17 08:38 Dose: 2 unit Insulin Glargine (Lantus) 20 unit SC HS [facility] Last Admin: 02/11/17 22:01 Dose: 20 units Ketorolac Tromethamine (Toradol) 30 mg IVP Q6 PRN PRN Reason: Pain, moderate (4-7) Last Admin: 02/12/17 06:15 Dose: 30 mg Oxycodone/Acetaminophen (Percocet 5/325 Mg Tab) 1 tab PO Q4H PRN PRN Reason: Pain, severe (8-10) Stop: 02/14/17 15:10 - Labs Labs: 02/12/17 07:48 02/12/17 07:48 PT 10.7 SECONDS (9.7-12.2) 02/10/17 07:03 INR 1.0 02/10/17 07:03 APTT 41 SECONDS (21-34) H 02/10/17 07:03 - Constitutional Appears: Well, Non-toxic, No Acute Distress - Extremities Exam Additional comments: B/L lower ext exam: VASC- DP/PT pulses faintly palpable, skin temp runs warm to warm (proximal to distal), cap refill <3 sec to all digits NEURO- pedal sensation is grossly diminished DERM-full thickness ulceration noted to medial aspect of left 2nd digit, with fibrogranular base, no purulence, no drainage, no malodor, neg probe to bone, slight erythema noted to left 2nd digit. Macerated wound margins. ORTHO- tender to palpation left 2nd digit, able to wiggle all toes freely - Neurological Exam Neurological Exam: Alert, Awake, Oriented x3 - Psychiatric Exam Psychiatric exam: Normal Affect, Normal Mood Assessment and Plan - Assessment and Plan (Free Text) Assessment: 61 y/o diabetic male patient with 1) ulceration of left 2nd digit with underlying OM, 2) 1 day s/p left leg angioplasty secondary to PAD occlusion Plan: Pt seen and evaluated at bedside by attending Dr. Moncada. Chart labs and vitals reviewed. WBC= 5.6K, ESR= 37, 24 hourT-max = 98.4. Wound cx: Streptococcus mitis X-ray and MRI results reviewed- Assessed as osteomyelitis of left foot 2nd digit. Discussed pt with Vascular specialist, Dr. Ponce. Pt refusing surgical option for resection of infected 2nd digit bone. Pt opted for conservative treatment options. PICC line in place, intermodal dispatcher IV abx therapy, per Dr. Rain. Wound irrigated and packed. Recommending Home Nursing wound care. Pt is stable from podiatry standpoint for discharge. Will follow up with Dr. Moncada in office on an outpatient basis.
[2017-02-12 10:07] LABS: CALCIUM 8.9 mg/dl (8.6-10.4); MAGNESIUM 1.4 mg/dL (1.6-2.3)
--- NOTE | 2017-02-12 13:35 | PN ---
DATE: LOCATION: Room 371 SUBJECTIVE: This is a 61-year-old male with recent uncontrolled type II insulin requiring diabetes, now being followed closely for metabolic management. He has also ongoing IV antibiotic management for lower extremity cellulitis as noted. His glycemic levels are fluctuating, but improved and the latest glucose levels have ranged from 165 to 280 and 297 mg/dL. LABORATORY DATA: His latest chemistry showed a BUN of 14, sodium 132, potassium 4.2, chloride 96, CO2 25, glucose 251, and creatinine 0.6. ASSESSMENT AND PLAN: So, at this time, we will modify once again his basal and bolus insulin regimen as ordered and we will increase the Lantus 26 units subcutaneous at bedtime daily to start to night. We will also increase the NovoLog to 10 units subcutaneous three times a day before meals to start at dinner time today as ordered. We will continue the low dose correction scale using NovoLog insulin as ordered. I have discussed with the medical sales today, he has been given a prescription for Tresiba for outpatient diabetic management. He can continue the Tresiba as basal insulin, but will also need a prandial meal time coverage to optimize metabolic control there off. In the light of underlying lower extremity cellulitis, we will need to optimize his metabolic control and would really need at least for now NovoLog regimen three times a day before each meal as ordered. He can resume his Janumet given twice daily for outpatient management as this will also help lower insulin resistance and hopefully lower insulin requirements over the next few months. We will follow. Lilia Dixon MD
--- NOTE | 2017-02-12 14:37 | VASCLAB ---
STUDY DESCRIPTION: HISTORY: PAD- prior stent placed, PRIORS: None. TECHNIQUE: Pulse volume recording waveforms and segmental pressures of bilateral lower extremities at multiple levels were obtained. Ankle Brachial Indices (ABIs) were calculated. Report prepared by CATIA Sorensen, RVT RIGHT LOWER EXTREMITY: * Brachial artery: Pressure - 148 mmHg. * High thigh: Pressure - 220 mmHg: Ratio - NC: PVR waveform - Pulsatile * Low thigh: Pressure - 152 mmHg: Ratio - 0.97 PVR waveform: Pulsatile * Calf: Pressure - 144 mmHg: Ratio - 0.92 PVR waveform: Reduced * Posterior tibial Artery: Pressure - 138 mmHg: Ratio - 0.88 PVR waveform: Reduced * Dorsalis pedis Artery: Pressure - 134 mmHg: Ratio - 0.85 PVR waveform: Reduced * Great toe: Pressure - mmHg: Ratio - PVR waveform: Ankle brachial index (ERICK): LEFT LOWER EXTREMITY: * Brachial artery: Pressure - 157 mmHg. * High thigh: Pressure - mmHg: Ratio - : PVR waveform - Pulsatile * Low thigh: Pressure - mmHg: Ratio - PVR waveform: Pulsatile * Calf: Pressure - 140 mmHg: Ratio - 0.89 PVR waveform: Reduced * Posterior tibial Artery: Pressure - 149 mmHg: Ratio - 0.95 PVR waveform: Reduced * Dorsalis pedis Artery: Pressure - 156 mmHg: Ratio - 0.99 PVR waveform: Reduced * Great toe: Pressure - mmHg: Ratio - PVR waveform: Ankle brachial index (ERICK): OTHER FINDINGS: Lower extremity arterial duplex recommended. IMPRESSION: Right: This exam reveals mildly decreased perfusion of the right lower extremity, noted at the superficial femoral, popliteal and tibial artery levels. Left: This exam reveals mildly decreased perfusion of the right lower extremity, noted at the superficial femoral and popliteal artery levels.
--- NOTE | 2017-02-12 14:47 | US ---
Date of procedure: 02/11/2017 Procedure: Ultrasound guidance for vascular access HISTORY: Infection requiring long-term IV antibiotics TECHNIQUE: Following informed consent and procedure time-out, the patient placed supine on the interventional table and the right arm prepped and draped in the usual sterile fashion. Ultrasound showed a patent and compressible basilic vein. After the skin was anesthetized with lidocaine, the basilic vein was accessed with micro micropuncture technique using ultrasound guidance. An image documenting ultrasound guidance for vascular access was permanently saved. IMPRESSION: Ultrasound guidance for vascular access for placement of PICC.
--- NOTE | 2017-02-12 14:48 | RAD ---
PROCEDURE: Date of procedure: 02/11/2017 Procedure: 1. Placement of a right arm PICC with ultrasound and fluoroscopic guidance, CPT 71160 2. PICC tip confirmation with spot radiograph and is in the superior vena cava Medications: 1 percent lidocaine Total Fluoro time: 4.4 seconds Radiation: 0.16 MGy EBL: 2 cc HISTORY: Infection requiring long-term IV antibiotics TECHNIQUE: Following informed consent and procedure time-out, the patient was placed supine on the interventional table and the right arm prepped and draped in the usual sterile fashion. Ultrasound showed a patent and compressible right basilic vein. After the skin was anesthetized with lidocaine, the basilic vein was accessed with micro micropuncture technique using ultrasound guidance. A guidewire was then advanced under fluoroscopic guidance into the superior vena cava. An image documenting ultrasound guidance for vascular access was permanently saved. The length of the single-lumen 4 [place]onian PICC was trimmed to 37 centimeters and advanced through a peel-away sheath. The PICC was position with tip of PICC confirm a spot radiograph the superior vena cava. The PICC was secured to the patient's skin. The PICC was flushed. A biopatch and sterile dressing was applied. IMPRESSION: Placement of a single-lumen 4 Cam[place]onian PICC trimmed to 37 centimeters via right basilic vein. The tip of the PICC is confirmed with spot radiograph and is in the superior vena cava.
--- NOTE | 2017-02-12 15:19 | VAS ---
DATE OF PROCEDURE: 02/11/2017 PREOPERATIVE DIAGNOSIS: Ischemic ulceration, left foot. PROCEDURES PERFORMED: Aortofemoral angiogram via right groin with selective catheterization of the left femoral artery. SURGEON: Zechariah Ponce Jr., MD. CANDY SEPARATOR HARD: Dr. Rashid Bee. ANESTHESIOLOGIST: Kellie Contreras CRNA. INDICATIONS FOR PROCEDURE: The patient is a 61-year-old man, diabetic, with previous interventions on his left peroneal artery in the past with good clinical results. He now presents with ischemic ulcerations of the foot. OPERATIVE FINDINGS: The aorta and renal arteries appears to have significant occlusive disease with common, internal, external iliac arteries, and common femoral arteries on both sides were widely patent. On the left side, which was the affected side, the arteries were widely patent down to the level of the tibial trifurcation. Below this, previously-placed stents, the peroneal artery is widely open into the foot with reconstitution of dorsalis pedis at the level of the ankle with the anterior tibial and posterior tibial artery occluded throughout their length except in the origin of the anterior tibial. On the right side, major vessel run off was via the peroneal artery, but there was a high-grade 90% stenosis in the mid portion of the Luis canal region of the right femoral artery. Subsequently, due to the initial performance of the angiogram, we then placed a catheter over the aortic bifurcation, positioned this in the superficial femoral artery, and took magnified oblique views of the area because of the conflict between this and the findings on the CT scan, but we were unable to identify any area of significant stenosis in the distal SFA or proximal popliteal and as I said, the previously placed stents in the peroneal were widely patent. There was reconstitution of a DP at the level of the ankle. At this point, we then removed the catheter from the right groin and applied pressure. The operation carried out was aortofemoral angiogram with selective catheterization of the left femoral artery. No intervention was undertaken. Zechariah Ponce Jr., MD
--- NOTE | 2017-02-12 18:05 | CP.PCM.PN ---
Subjective - Date & Time of Evaluation Date of Evaluation: 02/12/17 Time of Evaluation: 10:00 - Subjective Subjective: on admission found to have sever PVD requiring surgical intervention- blood c/s + wound shows strep mitis Objective - Vital Signs/Intake and Output Vital Signs (last 24 hours): Temp Pulse Resp BP Pulse Ox 98.3 F 82 20 116/73 95 02/12/17 16:00 02/12/17 16:00 02/12/17 16:00 02/12/17 16:00 02/12/17 16:00 Intake and Output: 02/12/17 02/12/17 06:59 18:59 Intake Total 1040 1300 Balance 1040 1300 - Medications Medications: Current Medications Acetaminophen (Tylenol 325mg Tab) 650 mg PO Q6 PRN PRN Reason: Pain, Mild (1-3) Last Admin: 02/10/17 10:08 Dose: 650 mg Aspirin (Aspirin Chewable) 81 mg PO DAILY [facility] Last Admin: 02/12/17 09:59 Dose: 81 mg Clopidogrel Bisulfate (Plavix) 75 mg PO DAILY [facility] Last Admin: 02/12/17 09:59 Dose: 75 mg Dextrose (Dextrose 50% Inj) 0 ml IV STAT PRN; Protocol PRN Reason: Hyglycemia Protocol Dextrose (Glutose 15) 0 gm PO ONCE PRN; Protocol PRN Reason: Hypoglycemia Protocol Enalapril Maleate (Vasotec) 10 mg PO DAILY [facility] Last Admin: 02/12/17 10:00 Dose: 10 mg Famotidine (Pepcid) 20 mg PO BID [facility] Last Admin: 02/12/17 17:28 Dose: 20 mg Glucagon (Glucagen Diagnostic Kit) 0 mg IM STAT PRN; Protocol PRN Reason: Hypoglycemia Protocol Heparin Sodium (Porcine) (Heparin) 5,000 units SC Q8 [facility] Last Admin: 02/12/17 13:34 Dose: Not Given Vancomycin/Sodium Chloride (Vancocin) 1 gm in 200 mls @ 133 mls/hr IVPB Q24H [facility] Stop: 02/15/17 00:01 Last Admin: 02/12/17 00:30 Dose: 133 mls/hr Dextrose (Dextrose 5% In Water 1000 Ml) 1,000 mls @ 0 mls/hr IV .Q0M PRN; Protocol; Per Protocol PRN Reason: Hypoglycemia Protocol Sodium Chloride (Sodium Chloride 0.45%) 1,000 mls @ 100 mls/hr IV .Q10H [facility] Last Admin: 02/12/17 06:19 Dose: Not Given Insulin Aspart (Novolog) 0 unit SC ACHS [facility] PRN Reason: Protocol Last Admin: 02/12/17 17:29 Dose: 3 unit Insulin Aspart (Novolog) 10 unit SC AC [facility] Last Admin: 02/12/17 17:28 Dose: 10 unit Insulin Glargine (Lantus) 26 unit SC HS [facility] Oxycodone/Acetaminophen (Percocet 5/325 Mg Tab) 1 tab PO Q4H PRN PRN Reason: Pain, severe (8-10) Stop: 02/14/17 15:10 - Labs Labs: 02/12/17 07:48 02/12/17 07:48 PT 10.7 SECONDS (9.7-12.2) 02/10/17 07:03 INR 1.0 02/10/17 07:03 APTT 41 SECONDS (21-34) H 02/10/17 07:03 - Constitutional Appears: Non-toxic, Chronically Ill - Head Exam Head Exam: NORMOCEPHALIC - Eye Exam Eye Exam: PERRL - ENT Exam ENT Exam: Mucous Membranes Dry - Neck Exam Neck Exam: absent: Lymphadenopathy - Respiratory Exam Respiratory Exam: Decreased Breath Sounds - Cardiovascular Exam Cardiovascular Exam: REGULAR RHYTHM - GI/Abdominal Exam GI & Abdominal Exam: Distended, Soft - Rectal Exam Rectal Exam: Deferred - Exam Exam: NORMAL INSPECTION - Extremities Exam Extremities Exam: Pedal Edema - Back Exam Back Exam: absent: CVA tenderness (L), CVA tenderness (R) Assessment and Plan (1) Cellulitis Status: Acute (2) Diabetes mellitus Status: Acute (3) PVD (peripheral vascular disease) Status: Acute (4) HTN (hypertension) Status: Acute (5) PAD (peripheral artery disease) Status: Acute - Assessment and Plan (Free Text) Assessment: cont iv antiibotics for 6 weeks follow up with podiatry allergy to PCN
[2017-02-12] MEDS: DAPTOmycin 600 MG in Sodium Chloride 0.9% 100 ML IV SCH (19:07)
[2017-02-12] MEDS: Oxycodone/Acetaminophen 5/325 mg Tab PO PRN (21:26)
[2017-02-12] MEDS ORDERED: (Lantus) Insulin Glargine, Recombinant SC SCH (22:00)
--- NOTE | 2017-02-12 23:15 | CP.PCM.PN ---
<Domonique Jacobs - Last Filed: 02/13/17 00:41> Subjective - Date & Time of Evaluation Date of Evaluation: 02/13/17 Time of Evaluation: 00:30 - Subjective Subjective: Medicine Note for Dr. Ruelas Patient seen and examined at bedside. Patient resting comfortably in bed. No acute complaints. Denied fever, chills, headache, chest pain, SOB, abdominal pain, n/v/d/c, or urinary symptoms. Objective - Vital Signs/Intake and Output Vital Signs (last 24 hours): Temp Pulse Resp BP Pulse Ox 98.3 F 82 20 116/73 95 02/12/17 16:00 02/12/17 16:00 02/12/17 16:00 02/12/17 16:00 02/12/17 16:00 Intake and Output: 02/12/17 02/13/17 18:59 06:59 Intake Total 1300 Balance 1300 - Medications Medications: Current Medications Acetaminophen (Tylenol 325mg Tab) 650 mg PO Q6 PRN PRN Reason: Pain, Mild (1-3) Last Admin: 02/10/17 10:08 Dose: 650 mg Aspirin (Aspirin Chewable) 81 mg PO DAILY [facility] Last Admin: 02/12/17 09:59 Dose: 81 mg Clopidogrel Bisulfate (Plavix) 75 mg PO DAILY [facility] Last Admin: 02/12/17 09:59 Dose: 75 mg Dextrose (Dextrose 50% Inj) 0 ml IV STAT PRN; Protocol PRN Reason: Hyglycemia Protocol Dextrose (Glutose 15) 0 gm PO ONCE PRN; Protocol PRN Reason: Hypoglycemia Protocol Enalapril Maleate (Vasotec) 10 mg PO DAILY [facility] Last Admin: 02/12/17 10:00 Dose: 10 mg Famotidine (Pepcid) 20 mg PO BID [facility] Last Admin: 02/12/17 17:28 Dose: 20 mg Glucagon (Glucagen Diagnostic Kit) 0 mg IM STAT PRN; Protocol PRN Reason: Hypoglycemia Protocol Heparin Sodium (Porcine) (Heparin) 5,000 units SC Q8 [facility] Last Admin: 02/12/17 21:28 Dose: Not Given Vancomycin/Sodium Chloride (Vancocin) 1 gm in 200 mls @ 133 mls/hr IVPB Q24H [facility] Stop: 02/15/17 00:01 Last Admin: 02/12/17 00:30 Dose: 133 mls/hr Dextrose (Dextrose 5% In Water 1000 Ml) 1,000 mls @ 0 mls/hr IV .Q0M PRN; Protocol; Per Protocol PRN Reason: Hypoglycemia Protocol Sodium Chloride (Sodium Chloride 0.45%) 1,000 mls @ 100 mls/hr IV .Q10H [facility] Last Admin: 02/12/17 19:16 Dose: 100 mls/hr Daptomycin 600 mg/ Sodium (Chloride) 100 mls @ 100 mls/hr IV Q24H [facility] Stop: 02/17/17 18:31 Last Admin: 02/12/17 19:07 Dose: 100 mls/hr Insulin Aspart (Novolog) 0 unit SC ACHS [facility] PRN Reason: Protocol Last Admin: 02/12/17 21:22 Dose: Not Given Insulin Aspart (Novolog) 10 unit SC AC [facility] Last Admin: 02/12/17 17:28 Dose: 10 unit Insulin Glargine (Lantus) 26 unit SC HS [facility] Last Admin: 02/12/17 21:29 Dose: 26 u Oxycodone/Acetaminophen (Percocet 5/325 Mg Tab) 1 tab PO Q4H PRN PRN Reason: Pain, severe (8-10) Stop: 02/14/17 15:10 Last Admin: 02/12/17 21:26 Dose: 1 tab - Labs Labs: 02/12/17 07:48 02/12/17 07:48 PT 10.7 SECONDS (9.7-12.2) 02/10/17 07:03 INR 1.0 02/10/17 07:03 APTT 41 SECONDS (21-34) H 02/10/17 07:03 - Additional Findings Additional findings: - Constitutional Appears: No Acute Distress - Head Exam Head Exam: ATRAUMATIC, NORMOCEPHALIC - Eye Exam Eye Exam: EOMI, PERRL - ENT Exam ENT Exam: Mucous Membranes Moist - Respiratory Exam Respiratory Exam: Clear to Ausculation Bilateral. absent: Rales, Rhonchi, Wheezes - Cardiovascular Exam Cardiovascular Exam: REGULAR RHYTHM, +S1, +S2 - GI/Abdominal Exam GI & Abdominal Exam: Soft, Normal Bowel Sounds. absent: Tenderness - Extremities Exam Additional comments: TTP walker, ankle region of left leg. 2nd toe medial aspect - fascia layer visible, no pus or drainage from site. Dressings c/d/i - Neurological Exam Neurological Exam: Alert, Awake, Oriented x3 - Psychiatric Exam Psychiatric exam: Normal Affect, Normal Mood - Skin Skin Exam: Dry, Warm Assessment and Plan - Assessment and Plan (Free Text) Plan: Osteomyelitis of Left 2nd Metatarsal * Podiatry consulted- Dr. Moncada - help appreciated * ID Dr. Rain consulted, help appreciated. * ESR: 37, CRP: high * Xray: irregularity on 2nd middle phalanx- osseous destructive changes related to osteomyelitis vs. nondisplaced fracture. soft tissue swelling. * Left LE MRI: 1. Prominent signal abnormality with bony destructive changes seen at the 2nd middle phalanx extending into the base of the 2nd distal phalanx with decreased T1 signal, increased STIR signal, and patchy post- contrast enhancement consistent with an acute osteomyelitis. 2. Prominent bony destructive changes seen at the head of the 5th metatarsal bone with patchy decreased T1 signal and increased STIR signal with some adjacent mild reactive changes of the base of the 5th proximal phalanx. This is of uncertain clinical etiology however the sequelae of acute infectious and or inflammatory changes cannot entirely be excluded. Clinical correlation. 3. Prominent reticulation and edema seen within the dorsal subcutaneous soft tissues of the mid and forefoot. 4. Moderate hallux valgus deformity. 5. Mild patchy reactive edema seen within the 3rd middle phalanx, nonspecific. 6. Mild patchy reactive edema seen within the proximal medullary cavity of the 5th metatarsal bone, nonspecific. 7. Mild fraying with increased signal seen within the visualized Lisfranc ligament which may represent a low to moderate grade sprain and or mild partial tearing. Clinical correlation. 8. Mild nonspecific reactive edema seen within the middle cuneiform bone. * Request for PICC line - for residential IV abx * Blood cultures: Gram positive cocci in clusters, which Dr. Rain believes is a contaminant. * Wound cultures: Streptococcus Mitis * Vancomycin 1gm IV Q24hr, not started on Zosyn 2/2 PCN allergy * Toradol PRN pain * Repeat blood cultures ordered on 02/11/17 - negative x 24 hours * Per conversation with Dr. Rain, since patient with PCN allergy, will do Cubicin 6 mg/kg IV daily for 6 weeks as outpatient infusion. Pending discharge Wednesday after antibiotic dose for infusion to begin on Wednesday. PVD (peripheral vascular disease) * Hx of left LE stents (2015) * Surgery consulted- Dr. Ponce, help appreciated * Arterial doppler of left LE: decreased perfusion BL at the SFA * Angiography results: Left LE: Mild plaque through SFA without significant stenosis. Mild popliteal artery stenosis. Anterior and posterior tibial artery occluded.Right LE: Severe calcific plaque in mid SFA with severe stenosis. Distal SFA has mild stenosis. Moderate stenosis of popliteal artery. Anterior tibial artery occluded in proximal segment. Posterior tibial artery is occluded. * Aortofemoral bilateral runoff, selective catheterizaton of left femoral artery performed on 02/11/17 * Continue home medication, Plavix 75mg PO daily Diabetes mellitus * HgA1c: 13.2 * Held home medications 2/2 anticipated angiography * Accuchecks * Consistent carbohydrate diet * ISS-high * Dr. Dixon, cray fishing hand consulted, help appreciated. * Endocrinology recommendations: * Lantus 26 mg HS, Novolog 10 units TIDAC, 1/2 NS at 100 cc/hr * Discussed patient's new home prescription from his PMD: Tresiba 200 units Q7D and Janumet which he has filled but has not started taking yet with Dr. Dixon over the phone. Dr. Dixon believes that the patient will still need mealtime coverage in addition to basal insulin. * Per her recommendations, patient may take his Tresiba weekly and his Janumet BID but will also need prandial insulin coverage three times daily. HTN (hypertension) * Continue home medications- Enalapril 10mg PO daily Prophylactic measure * GI PPX: Pepcid 20mg PO BID * DVT PPX: SCDs- C/I due to infection and PVD, Heparin 5,000 SC * PT Eval Disposition: Pending Discharge on Wednesday to begin Infusion Center on Wednesday DW Reynaldo Howell DO, PGY1 <Ion Morrow - Last Filed: 02/13/17 14:04> Objective - Vital Signs/Intake and Output Vital Signs (last 24 hours): Temp Pulse Resp BP Pulse Ox 97.8 F 78 20 137/80 97 02/13/17 08:36 02/13/17 08:36 02/13/17 08:36 02/13/17 11:27 02/13/17 08:36 Intake and Output: 02/13/17 02/13/17 06:59 18:59 Intake Total 1160 Balance 1160 - Medications Medications: Current Medications Acetaminophen (Tylenol 325mg Tab) 650 mg PO Q6 PRN PRN Reason: Pain, Mild (1-3) Last Admin: 02/10/17 10:08 Dose: 650 mg Aspirin (Aspirin Chewable) 81 mg PO DAILY [facility] Last Admin: 02/13/17 11:27 Dose: 81 mg Clopidogrel Bisulfate (Plavix) 75 mg PO DAILY [facility] Last Admin: 02/13/17 11:27 Dose: 75 mg Dextrose (Dextrose 50% Inj) 0 ml IV STAT PRN; Protocol PRN Reason: Hyglycemia Protocol Dextrose (Glutose 15) 0 gm PO ONCE PRN; Protocol PRN Reason: Hypoglycemia Protocol Enalapril Maleate (Vasotec) 10 mg PO DAILY [facility] Last Admin: 02/13/17 11:27 Dose: 10 mg Famotidine (Pepcid) 20 mg PO BID [facility] Last Admin: 02/13/17 11:27 Dose: 20 mg Glucagon (Glucagen Diagnostic Kit) 0 mg IM STAT PRN; Protocol PRN Reason: Hypoglycemia Protocol Heparin Sodium (Porcine) (Heparin) 5,000 units SC Q8 [facility] Last Admin: 02/13/17 06:15 Dose: Not Given Vancomycin/Sodium Chloride (Vancocin) 1 gm in 200 mls @ 133 mls/hr IVPB Q24H [facility] Stop: 02/15/17 00:01 Last Admin: 02/12/17 23:55 Dose: 133 mls/hr Dextrose (Dextrose 5% In Water 1000 Ml) 1,000 mls @ 0 mls/hr IV .Q0M PRN; Protocol; Per Protocol PRN Reason: Hypoglycemia Protocol Sodium Chloride (Sodium Chloride 0.45%) 1,000 mls @ 100 mls/hr IV .Q10H [facility] Last Admin: 02/13/17 01:31 Dose: Not Given Daptomycin 600 mg/ Sodium (Chloride) 100 mls @ 100 mls/hr IV Q24H [facility] Stop: 02/17/17 18:31 Last Admin: 02/12/17 19:07 Dose: 100 mls/hr Insulin Aspart (Novolog) 0 unit SC ACHS [facility] PRN Reason: Protocol Last Admin: 02/13/17 12:47 Dose: 3 unit Insulin Aspart (Novolog) 14 unit SC AC [facility] Last Admin: 02/13/17 12:46 Dose: 14 unit Insulin Glargine (Lantus) 40 unit SC HS [facility] Oxycodone/Acetaminophen (Percocet 5/325 Mg Tab) 1 tab PO Q4H PRN PRN Reason: Pain, severe (8-10) Stop: 02/14/17 15:10 Last Admin: 02/13/17 11:48 Dose: 1 tab - Labs Labs: 02/13/17 07:52 02/13/17 07:52 PT 10.7 SECONDS (9.7-12.2) 02/10/17 07:03 INR 1.0 02/10/17 07:03 APTT 41 SECONDS (21-34) H 02/10/17 07:03 Attending/Attestation - Attestation I have personally seen and examined this patient.: Yes I have fully participated in the care of the patient.: Yes I have reviewed all pertinent clinical information, including history, physical exam and plan: Yes Notes (Text): This is a 61 years old male with a past medical history of HTN and DM, presents to the ED with an infection of the 2nd digit of the foot. 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 Moncada. He has past medical history of HTN, DM, previous left foot wound (2016) Patient had MRI today shows acute osteomylitis of toe.He also had arterial doppler.s/p arteriogram.No intervention recommended We will continue vancomycin.He will be discharged on wednesday .Starting cubicin infusion as an out pt on wednesday Continue his asprin,plavix and ACEI Patient was seen and examined.No complain.He wants to go home start his job as early as possible.Discussed about taking insulin with meals at home.Patient idoesn't want to take insulin three times a day.He was explained about the need for sugar control to prevent complication of diabetes.He wants to take tresiba with oral medication. He was explained that his sugar control is important for wound healing and prevent complication.At his condition he should take insulin with meals in addition to tresiba 02/13/17 13:59
[2017-02-13] MEDS: Sodium Chloride 0.45% 1,000 ML IV SCH ×2 (01:31→21:44)
[2017-02-13] MEDS: Oxycodone/Acetaminophen 5/325 mg Tab PO PRN ×3 (06:12→21:52)
[2017-02-13 08:06] LABS: BASO % 0.9 % (0.0-2.0); EOS # 0.2 K/uL (0.0-0.7); EOS % 4.4 % (0.0-4.0); HEMATOCRIT 38.1 % (35.0-51.0); LYMPH # 1.8 K/uL (1.0-4.3); LYMPH % 33.8 % (20.0-40.0); MEAN CELL VOLUME 91.4 fL (80.0-94.0); MEAN CORPUSCULAR HEMOGLOBIN 31.6 pg (27.0-31.0); MEAN CORPUSCULAR HGB CONC 34.6 g/dL (33.0-37.0); MEAN PLATELET VOLUME 8.3 fL (7.2-11.7); MONO # 0.4 K/uL (0.0-0.8); MONO % 6.7 % (0.0-10.0); NRBC % 0.2 % (0.0-2.0); RED CELL DISTRIBUTION WIDTH 13.4 % (11.5-14.5); WHITE BLOOD COUNT 5.2 K/uL (4.8-10.8)
[2017-02-13 08:18] LABS: CHLORIDE 97 mmol/L (98-107)
[2017-02-13 08:19] LABS: POTASSIUM 4.2 mmol/L (3.6-5.2); SODIUM 137 mmol/L (132-148)
[2017-02-13 08:21] LABS: ALB/GLOB RATIO 1.2 (1.0-2.1); ALKALINE PHOSPHATASE 90 U/L (38-126); ALT/SGPT 49 U/L (21-72); AST/SGOT 38 U/L (17-59); BILIRUBIN,TOTAL 0.4 mg/dL (0.2-1.3); BLOOD UREA NITROGEN 13 mg/dL (9-20); CARBON DIOXIDE 26 mmol/L (22-30); GFR AFRICAN-AMERICAN > 60; TOTAL PROTEIN 7.3 g/dL (6.3-8.3)
[2017-02-13 08:22] LABS: GLUCOSE,RANDOM 275 mg/dL (75-110); MAGNESIUM 1.5 mg/dL (1.6-2.3); PHOSPHOROUS 3.5 mg/dL (2.5-4.5)
[2017-02-13 08:37] VITALS: RESP 20
[2017-02-13] MEDS: (Novolog) Insulin Aspart, Recombinant 100 u/ml 10 ml vial SC SCH ×7 (08:52→21:43)
--- NOTE | 2017-02-13 11:05 | CP.PCM.PN ---
Subjective - Date & Time of Evaluation Date of Evaluation: 02/13/17 Time of Evaluation: 11:05 - Subjective Subjective: Podiatry Progress Note - Dr. Moncada 61 year old male patient seen at bedside concerning left 2nd toe cellulitis. Patient seen resting comfortably at time of visit, AAOx3 and NAD. Patient denies any acute overnight events. Patient reports mild pain to his 2nd toe, controlled. Patient complaining of left lower extremity soreness s/p surgical procedure. Patient aware he will be discharged tomorrow. Patient denies N/V/F/D/ C/SOB/calf pain. Offers no other pedal complaints at this time. Objective - Vital Signs/Intake and Output Vital Signs (last 24 hours): Temp Pulse Resp BP Pulse Ox 97.8 F 78 20 137/80 97 02/13/17 08:36 02/13/17 08:36 02/13/17 08:36 02/13/17 08:36 02/13/17 08:36 Intake and Output: 02/13/17 02/13/17 06:59 18:59 Intake Total 1160 Balance 1160 - Medications Medications: Current Medications Acetaminophen (Tylenol 325mg Tab) 650 mg PO Q6 PRN PRN Reason: Pain, Mild (1-3) Last Admin: 02/10/17 10:08 Dose: 650 mg Aspirin (Aspirin Chewable) 81 mg PO DAILY [facility] Last Admin: 02/12/17 09:59 Dose: 81 mg Clopidogrel Bisulfate (Plavix) 75 mg PO DAILY [facility] Last Admin: 02/12/17 09:59 Dose: 75 mg Dextrose (Dextrose 50% Inj) 0 ml IV STAT PRN; Protocol PRN Reason: Hyglycemia Protocol Dextrose (Glutose 15) 0 gm PO ONCE PRN; Protocol PRN Reason: Hypoglycemia Protocol Enalapril Maleate (Vasotec) 10 mg PO DAILY [facility] Last Admin: 02/12/17 10:00 Dose: 10 mg Famotidine (Pepcid) 20 mg PO BID [facility] Last Admin: 02/12/17 17:28 Dose: 20 mg Glucagon (Glucagen Diagnostic Kit) 0 mg IM STAT PRN; Protocol PRN Reason: Hypoglycemia Protocol Heparin Sodium (Porcine) (Heparin) 5,000 units SC Q8 [facility] Last Admin: 02/13/17 06:15 Dose: Not Given Vancomycin/Sodium Chloride (Vancocin) 1 gm in 200 mls @ 133 mls/hr IVPB Q24H [facility] Stop: 02/15/17 00:01 Last Admin: 02/12/17 23:55 Dose: 133 mls/hr Dextrose (Dextrose 5% In Water 1000 Ml) 1,000 mls @ 0 mls/hr IV .Q0M PRN; Protocol; Per Protocol PRN Reason: Hypoglycemia Protocol Sodium Chloride (Sodium Chloride 0.45%) 1,000 mls @ 100 mls/hr IV .Q10H [facility] Last Admin: 02/13/17 01:31 Dose: Not Given Daptomycin 600 mg/ Sodium (Chloride) 100 mls @ 100 mls/hr IV Q24H [facility] Stop: 02/17/17 18:31 Last Admin: 02/12/17 19:07 Dose: 100 mls/hr Insulin Aspart (Novolog) 0 unit SC ACHS [facility] PRN Reason: Protocol Last Admin: 02/13/17 08:52 Dose: 3 unit Insulin Aspart (Novolog) 14 unit SC AC [facility] Insulin Glargine (Lantus) 40 unit SC HS [facility] Oxycodone/Acetaminophen (Percocet 5/325 Mg Tab) 1 tab PO Q4H PRN PRN Reason: Pain, severe (8-10) Stop: 02/14/17 15:10 Last Admin: 02/13/17 06:12 Dose: 1 tab - Labs Labs: 02/13/17 07:52 02/13/17 07:52 PT 10.7 SECONDS (9.7-12.2) 02/10/17 07:03 INR 1.0 02/10/17 07:03 APTT 41 SECONDS (21-34) H 02/10/17 07:03 - Constitutional Appears: Well, Non-toxic, No Acute Distress - Extremities Exam Additional comments: VASC- DP/PT pulses faintly palpable, temperature gradient warm to warm, cap refill <3 sec to all digits, +1 pitting edema noted to LLE NEURO- pedal sensation is grossly diminished DERM-full thickness ulceration noted to medial aspect of left 2nd digit, with fibrogranular base, no purulence, no drainage, no malodor, neg probe to bone, slight erythema noted to left 2nd digit. Macerated wound margins. ORTHO- tenderness to palpation left 2nd digit, active MPJ to all digits bilateral - Neurological Exam Neurological Exam: Alert, Awake, Oriented x3 - Psychiatric Exam Psychiatric exam: Normal Affect, Normal Mood Assessment and Plan - Assessment and Plan (Free Text) Assessment: 61 y/o diabetic male patient with 1) ulceration of left 2nd digit with underlying OM, 2) 2 days s/p left leg angioplasty secondary to PAD occlusion Plan: Patient seen and evaluated at bedside Discussed with attending, Dr. Moncada Labs and vitals reviewed = WBC 5.2, Tmax 98.3 Wound culture final report shows growth of streptococcus mitis X-ray and MRI results reviewed- Assessed as osteomyelitis of left foot 2nd digit. Patient refuses surgical option for resection of infect 2nd digit bone Patient opts for conservative treatment options Patient to be placed on 6 weeks of Cubicin as outpatient infusion, starting Wednesday, 02/15 Wound cleansed with sterile saline and packed with betadine soaked 2x2 and left foot dressed with DSD. Recommending Home Nursing wound care -Social work made aware Stable from podiatry standpoint for discharge Patient to follow up with Dr. Moncada in office on an outpatient basis Will continue to follow patient while in house
--- NOTE | 2017-02-13 17:02 | PN ---
DATE: ENDO FOLLOWUP NOTE LOCATION: Room 371. This is a 61-year-old male with recent uncontrolled type 2 insulin requiring diabetes, presented here with lower extremity cellulitis and underlying severe peripheral arterial vasculopathy as noted. He actually underwent aortofemoral bilateral runoff and selective catheterization of the left femoral artery as noted. His glycemic levels are fluctuating, improved, otherwise as noted. The glucose levels have ranged from 218 to 300 mg/dL. His latest chemistries showed BUN of 13, sodium 137, potassium 4.2, chloride 97, CO2 of 26, glucose 275 and creatinine 0.6. He is also ongoing IV antibiotic management per underlying lower extremity cellulitis as noted. Moreover, we will modify once again his basal and bolus insulin regimen to optimize metabolic control. We will increase the Lantus to 40 units subQ at bedtime daily to start tonight as ordered. We will also increase the NovoLog to 40 units subQ t.i.d. before meals to start at lunchtime today as ordered. We will titrate the medicine as stated, optimize metabolic control. We will follow. Lilia Dixon MD
[2017-02-13] MEDS: DAPTOmycin 600 MG in Sodium Chloride 0.9% 100 ML IV SCH (17:49)
[2017-02-13] MEDS: (Lantus) Insulin Glargine, Recombinant SC SCH (21:42)
[2017-02-14] MEDS: Vancomycin 1 gm/NS 200 ml 1 GM/200 ML BAG IVPB SCH ×2 (00:39→01:00)
[2017-02-14 07:04] LABS: BASO # 0.1 K/uL (0.0-0.2); EOS # 0.3 K/uL (0.0-0.7); EOS % 4.4 % (0.0-4.0); HEMATOCRIT 36.9 % (35.0-51.0); LYMPH % 32.5 % (20.0-40.0); MEAN CELL VOLUME 92.1 fL (80.0-94.0); MEAN CORPUSCULAR HEMOGLOBIN 31.1 pg (27.0-31.0); MEAN CORPUSCULAR HGB CONC 33.8 g/dL (33.0-37.0); MEAN PLATELET VOLUME 7.8 fL (7.2-11.7); MONO # 0.6 K/uL (0.0-0.8); MONO % 8.9 % (0.0-10.0); RED CELL DISTRIBUTION WIDTH 13.3 % (11.5-14.5); WHITE BLOOD COUNT 6.2 K/uL (4.8-10.8)
[2017-02-14 07:10] LABS: CHLORIDE 99 mmol/L (98-107); SODIUM 135 mmol/L (132-148)
[2017-02-14 07:12] LABS: GFR AFRICAN-AMERICAN > 60
[2017-02-14 07:13] LABS: ALB/GLOB RATIO 1.1 (1.0-2.1); ALKALINE PHOSPHATASE 77 U/L (38-126); ALT/SGPT 61 U/L (21-72); AST/SGOT 40 U/L (17-59); BILIRUBIN,TOTAL 0.5 mg/dL (0.2-1.3); BLOOD UREA NITROGEN 11 mg/dL (9-20); CARBON DIOXIDE 27 mmol/L (22-30); GLUCOSE,RANDOM 168 mg/dL (75-110); PHOSPHOROUS 3.6 mg/dL (2.5-4.5); TOTAL PROTEIN 6.9 g/dL (6.3-8.3)
[2017-02-14 07:14] LABS: CALCIUM 8.3 mg/dl (8.6-10.4); MAGNESIUM 1.5 mg/dL (1.6-2.3)
--- NOTE | 2017-02-14 07:25 | CP.PCM.DIS ---
Provider - Provider Date of Admission: 02/09/17 19:49 Attending physician: Jeremy De Leon MD Hospital Course - Lab Results Lab Results: Micro Results 02/11/17 17:30 Blood Blood Culture - Preliminary NO GROWTH AFTER 48 HOURS 02/11/17 18:30 Blood Blood Culture - Preliminary NO GROWTH AFTER 48 HOURS 02/09/17 17:45 Blood Blood Culture - Preliminary NO GROWTH AFTER 4 DAYS 02/11/17 07:26 Blood Blood Culture - Preliminary NO GROWTH AFTER 48 HOURS 02/09/17 17:30 Blood S.aureus & Coag-Neg Staph PNA FISH - Final 02/09/17 17:30 Blood Blood Culture - Final Coagulase Neg Staphylococcus 02/09/17 17:30 Blood Gram Stain - Final 02/09/17 17:25 Toe Gram Stain - Final 02/09/17 17:25 Toe Wound Culture - Final Streptococcus Mitis Most Recent Lab Values WBC 6.2 K/uL (4.8-10.8) 02/14/17 06:55 RBC 4.01 Mil/uL (4.40-5.90) L 02/14/17 06:55 Hgb 12.5 g/dL (12.0-18.0) 02/14/17 06:55 Hct 36.9 % (35.0-51.0) 02/14/17 06:55 MCV 92.1 fL (80.0-94.0) 02/14/17 06:55 MCH 31.1 pg (27.0-31.0) H 02/14/17 06:55 MCHC 33.8 g/dL (33.0-37.0) 02/14/17 06:55 RDW 13.3 % (11.5-14.5) 02/14/17 06:55 Plt Count 240 K/uL (130-400) 02/14/17 06:55 MPV 7.8 fL (7.2-11.7) 02/14/17 06:55 Neut % (Auto) 53.2 % (50.0-75.0) 02/14/17 06:55 Lymph % (Auto) 32.5 % (20.0-40.0) 02/14/17 06:55 [place] % (Auto) 8.9 % (0.0-10.0) 02/14/17 06:55 Eos % (Auto) 4.4 % (0.0-4.0) H 02/14/17 06:55 Baso % (Auto) 1.0 % (0.0-2.0) 02/14/17 06:55 Neut # 3.3 K/uL (1.8-7.0) 02/14/17 06:55 Lymph # 2.0 K/uL (1.0-4.3) 02/14/17 06:55 [place] # 0.6 K/uL (0.0-0.8) 02/14/17 06:55 Eos # 0.3 K/uL (0.0-0.7) 02/14/17 06:55 Baso # 0.1 K/uL (0.0-0.2) 02/14/17 06:55 ESR 37 mm/hr (0-15) H 02/09/17 17:33 PT 10.7 SECONDS (9.7-12.2) 02/10/17 07:03 INR 1.0 02/10/17 07:03 APTT 41 SECONDS (21-34) H 02/10/17 07:03 Sodium 135 mmol/L (132-148) 02/14/17 06:55 Potassium 4.0 mmol/L (3.6-5.2) 02/14/17 06:55 Chloride 99 mmol/L (98-107) 02/14/17 06:55 Carbon Dioxide 27 mmol/L (22-30) 02/14/17 06:55 Anion Gap 13 (10-20) 02/14/17 06:55 BUN 11 mg/dL (9-20) 02/14/17 06:55 Creatinine 0.5 mg/dL (0.8-1.5) L 02/14/17 06:55 Est GFR ( Amer) > 60 02/14/17 06:55 Est GFR (Non-Af Amer) > 60 02/14/17 06:55 POC Glucose (mg/dL) 320 mg/dL (65-110) H 02/14/17 02:57 Random Glucose 168 mg/dL (75-110) H 02/14/17 06:55 Hemoglobin A1c 13.6 % (4.2-6.5) H D 02/10/17 09:51 Lactic Acid 2.0 mmol/L (0.7-2.1) 02/09/17 17:33 Calcium 8.3 mg/dl (8.6-10.4) L 02/14/17 06:55 Phosphorus 3.6 mg/dL (2.5-4.5) 02/14/17 06:55 Magnesium 1.5 mg/dL (1.6-2.3) L 02/14/17 06:55 Total Bilirubin 0.5 mg/dL (0.2-1.3) 02/14/17 06:55 AST 40 U/L (17-59) 02/14/17 06:55 ALT 61 U/L (21-72) 02/14/17 06:55 Alkaline Phosphatase 77 U/L (38-126) 02/14/17 06:55 C-React Prot High Sens > 15.00 mg/L (1.00-3.00) H 02/09/17 17:33 Total Protein 6.9 g/dL (6.3-8.3) 02/14/17 06:55 Albumin 3.5 g/dL (3.5-5.0) 02/14/17 06:55 Globulin 3.3 gm/dL (2.2-3.9) 02/14/17 06:55 Albumin/Globulin Ratio 1.1 (1.0-2.1) 02/14/17 06:55 Triglycerides 243 mg/dL (0-149) H 02/11/17 07:47 Cholesterol 177 mg/dL (0-199) 02/11/17 07:47 LDL Cholesterol Direct 100 mg/dL (0-129) 02/11/17 07:47 HDL Cholesterol 52 mg/dL (30-70) 02/11/17 07:47 TSH 3rd Generation 0.98 mIU/L (0.46-4.68) 02/11/17 07:47 Discharge Exam - Head Exam Head Exam: NORMOCEPHALIC Discharge Plan - Follow Up Plan Condition: FAIR Disposition: HOME/ ROUTINE
[2017-02-14] MEDS: (Novolog) Insulin Aspart, Recombinant 100 u/ml 10 ml vial SC SCH ×8 (08:26→21:48)
[2017-02-14] MEDS ORDERED: Magnesium Sulfate 1 gm in D5W 1 GM/100 ML BAG IVPB ONE (08:51)
[2017-02-14] MEDS: Oxycodone/Acetaminophen 5/325 mg Tab PO PRN (09:21)
--- NOTE | 2017-02-14 12:27 | CP.PCM.PN ---
Subjective - Date & Time of Evaluation Date of Evaluation: 02/14/17 Time of Evaluation: 12:30 - Subjective Subjective: Podiatry Progress Note - Dr. Moncada 61 year old male patient seen at bedside concerning left 2nd toe cellulitis. Patient seen resting comfortably at time of visit, AAOx3 and NAD. Patient denies any acute overnight events. Patient reports mild pain to left 2nd toe. Patient states the dressing to his left foot came off overnight. Patient continues to use surgical shoe when ambulating. Patient aware he will begin outpatient infusion for IV antibiotics tomorrow. Patient denies N/V/F/D/C/SOB/ calf pain. No other pedal complaints at this time. Objective - Vital Signs/Intake and Output Vital Signs (last 24 hours): Temp Pulse Resp BP Pulse Ox 97.8 F 64 20 120/87 98 02/13/17 23:13 02/13/17 23:13 02/13/17 23:13 02/14/17 09:22 02/13/17 23:13 - Medications Medications: Current Medications Acetaminophen (Tylenol 325mg Tab) 650 mg PO Q6 PRN PRN Reason: Pain, Mild (1-3) Last Admin: 02/10/17 10:08 Dose: 650 mg Aspirin (Aspirin Chewable) 81 mg PO DAILY [facility] Last Admin: 02/14/17 09:21 Dose: 81 mg Clopidogrel Bisulfate (Plavix) 75 mg PO DAILY [facility] Last Admin: 02/14/17 09:21 Dose: 75 mg Dextrose (Dextrose 50% Inj) 0 ml IV STAT PRN; Protocol PRN Reason: Hyglycemia Protocol Dextrose (Glutose 15) 0 gm PO ONCE PRN; Protocol PRN Reason: Hypoglycemia Protocol Enalapril Maleate (Vasotec) 10 mg PO DAILY [facility] Last Admin: 02/14/17 09:22 Dose: 10 mg Famotidine (Pepcid) 20 mg PO BID [facility] Last Admin: 02/14/17 09:21 Dose: 20 mg Glucagon (Glucagen Diagnostic Kit) 0 mg IM STAT PRN; Protocol PRN Reason: Hypoglycemia Protocol Heparin Sodium (Porcine) (Heparin) 5,000 units SC Q8 [facility] Last Admin: 02/14/17 05:00 Dose: Not Given Dextrose (Dextrose 5% In Water 1000 Ml) 1,000 mls @ 0 mls/hr IV .Q0M PRN; Protocol; Per Protocol PRN Reason: Hypoglycemia Protocol Sodium Chloride (Sodium Chloride 0.45%) 1,000 mls @ 100 mls/hr IV .Q10H [facility] Last Admin: 02/13/17 21:44 Dose: Not Given Daptomycin 600 mg/ Sodium (Chloride) 100 mls @ 100 mls/hr IV Q24H [facility] Stop: 02/17/17 18:31 Last Admin: 02/13/17 17:49 Dose: 100 mls/hr Insulin Aspart (Novolog) 0 unit SC ACHS [facility] PRN Reason: Protocol Last Admin: 02/14/17 08:26 Dose: Not Given Insulin Aspart (Novolog) 14 unit SC AC [facility] Last Admin: 02/14/17 08:49 Dose: 14 unit Insulin Glargine (Lantus) 40 unit SC HS [facility] Last Admin: 02/13/17 21:42 Dose: 40 u Oxycodone/Acetaminophen (Percocet 5/325 Mg Tab) 1 tab PO Q4H PRN PRN Reason: Pain, severe (8-10) Stop: 02/14/17 15:10 Last Admin: 02/14/17 09:21 Dose: 1 tab - Labs Labs: 02/14/17 06:55 02/14/17 06:55 PT 10.7 SECONDS (9.7-12.2) 02/10/17 07:03 INR 1.0 02/10/17 07:03 APTT 41 SECONDS (21-34) H 02/10/17 07:03 - Constitutional Appears: Well, Non-toxic, No Acute Distress - Extremities Exam Additional comments: VASC- DP/PT pulses faintly palpable, temperature gradient warm to warm, cap refill <3 sec to all digits, +1 pitting edema noted to LLE NEURO- pedal sensation is grossly diminished DERM-full thickness ulceration noted to medial aspect of left 2nd digit, with fibrogranular base, no purulence, no drainage, no malodor, neg probe to bone, slight erythema noted to left 2nd digit. Maceration noted periwound. ORTHO- tenderness to palpation left 2nd digit, active MPJ to all digits bilateral - Neurological Exam Neurological Exam: Alert, Awake, Oriented x3 - Psychiatric Exam Psychiatric exam: Normal Affect, Normal Mood Assessment and Plan - Assessment and Plan (Free Text) Assessment: 61 y/o diabetic male patient with 1) ulceration of left 2nd digit with underlying OM, 2) 2 days s/p left leg angioplasty secondary to PAD occlusion Plan: Patient seen and evaluated at bedside Discussed with attending, Dr. Moncada Labs and vitals reviewed = WBC 6.2, afebrile Wound culture final report shows growth of streptococcus mitis X-ray and MRI results reviewed- Assessed as osteomyelitis of left foot 2nd digit. Patient refuses surgical option for resection of infect 2nd digit bone Patient opts for conservative treatment options Patient to be placed on 6 weeks of Cubicin as outpatient infusion, starting tomorrow, 02/15 Wound cleansed with sterile saline and packed with betadine soaked 2x2 + DSD Recommending Home Nursing wound [facility] to be set up on 02/15/17. Dressing orders: Betadine soaked 2x2 packed into ulceration, 4x4 gauze, kerlix. Patient is to be weight bearing as tolerated in surgical shoe at all times. Stable from podiatry standpoint for discharge Patient to follow up with Dr. Moncada in office on an outpatient basis Will continue to follow patient while in house
--- NOTE | 2017-02-14 13:03 | PN ---
ENDOCRINOLOGY FOLLOWUP NOTE DATE: LOCATION: Room 371. This is a 61-year-old male with recent uncontrolled type 2 insulin-requiring diabetes, undergoing IV antibiotic management for left lower extremity cellulitis and is also being followed closely for metabolic management. He underwent a recent aortofemoral bilateral runoff with selective catheterization of the left femoral artery as noted. His hyperglycemic accelerations have improved at this time and the latest chemistry showed a BUN of 11, sodium 135, potassium 4.0, chloride 99, CO2 27, glucose 160 and creatinine 0.5. His glucose levels today have ranged from 193 to 218 and 320 mg/dL. At this time, we will continue the same basal and bolus insulin regimen as given with Lantus given as 40 units subcutaneous at bedtime daily as ordered. We will continue the NovoLog given as 14 units subcutaneous t.i.d. before meals as ordered. We will continue his low dose correction scale using NovoLog insulin as ordered. He is scheduled for discharge today and we will be actually using his Tresiba insulin as long acting basal insulin at home and we will add Humalog given as 14 units t.i.d. before meals as ordered. He will follow with his medical doctor before outpatient diabetic and medical management. Lilia Dixon MD
--- NOTE | 2017-02-14 15:27 | CP.PCM.PN ---
Subjective - Date & Time of Evaluation Date of Evaluation: 02/14/17 Time of Evaluation: 09:00 - Subjective Subjective: no new complaints resting comfortably in NAD Objective - Vital Signs/Intake and Output Vital Signs (last 24 hours): Temp Pulse Resp BP Pulse Ox 98.0 F 79 20 120/87 97 02/14/17 08:00 02/14/17 08:00 02/14/17 08:00 02/14/17 09:22 02/14/17 08:00 - Medications Medications: Current Medications Acetaminophen (Tylenol 325mg Tab) 650 mg PO Q6 PRN PRN Reason: Pain, Mild (1-3) Last Admin: 02/10/17 10:08 Dose: 650 mg Aspirin (Aspirin Chewable) 81 mg PO DAILY [facility] Last Admin: 02/14/17 09:21 Dose: 81 mg Clopidogrel Bisulfate (Plavix) 75 mg PO DAILY [facility] Last Admin: 02/14/17 09:21 Dose: 75 mg Dextrose (Dextrose 50% Inj) 0 ml IV STAT PRN; Protocol PRN Reason: Hyglycemia Protocol Dextrose (Glutose 15) 0 gm PO ONCE PRN; Protocol PRN Reason: Hypoglycemia Protocol Enalapril Maleate (Vasotec) 10 mg PO DAILY [facility] Last Admin: 02/14/17 09:22 Dose: 10 mg Famotidine (Pepcid) 20 mg PO BID [facility] Last Admin: 02/14/17 09:21 Dose: 20 mg Glucagon (Glucagen Diagnostic Kit) 0 mg IM STAT PRN; Protocol PRN Reason: Hypoglycemia Protocol Heparin Sodium (Porcine) (Heparin) 5,000 units SC Q8 [facility] Last Admin: 02/14/17 15:04 Dose: Not Given Dextrose (Dextrose 5% In Water 1000 Ml) 1,000 mls @ 0 mls/hr IV .Q0M PRN; Protocol; Per Protocol PRN Reason: Hypoglycemia Protocol Sodium Chloride (Sodium Chloride 0.45%) 1,000 mls @ 100 mls/hr IV .Q10H [facility] Last Admin: 02/13/17 21:44 Dose: Not Given Daptomycin 600 mg/ Sodium (Chloride) 100 mls @ 100 mls/hr IV Q24H [facility] Stop: 02/17/17 18:31 Last Admin: 02/13/17 17:49 Dose: 100 mls/hr Insulin Aspart (Novolog) 0 unit SC ACHS [facility] PRN Reason: Protocol Last Admin: 02/14/17 12:23 Dose: Not Given Insulin Aspart (Novolog) 14 unit SC AC [facility] Last Admin: 02/14/17 12:40 Dose: 14 unit Insulin Glargine (Lantus) 40 unit SC HS [facility] Last Admin: 02/13/17 21:42 Dose: 40 u - Labs Labs: 02/14/17 06:55 02/14/17 06:55 PT 10.7 SECONDS (9.7-12.2) 02/10/17 07:03 INR 1.0 02/10/17 07:03 APTT 41 SECONDS (21-34) H 02/10/17 07:03 - Constitutional Appears: Non-toxic, Chronically Ill - Head Exam Head Exam: NORMOCEPHALIC - Eye Exam Eye Exam: PERRL - ENT Exam ENT Exam: Mucous Membranes Dry - Neck Exam Neck Exam: absent: Lymphadenopathy - Respiratory Exam Respiratory Exam: Decreased Breath Sounds - Cardiovascular Exam Cardiovascular Exam: REGULAR RHYTHM - GI/Abdominal Exam GI & Abdominal Exam: Distended - Rectal Exam Rectal Exam: Deferred - Exam Exam: NORMAL INSPECTION - Extremities Exam Extremities Exam: Pedal Edema Additional comments: VASC- DP/PT pulses faintly palpable, temperature gradient warm to warm, cap refill <3 sec to all digits, +1 pitting edema noted to LLE NEURO- pedal sensation is grossly diminished DERM-full thickness ulceration noted to medial aspect of left 2nd digit, with fibrogranular base, no purulence, no drainage, no malodor, neg probe to bone, slight erythema noted to left 2nd digit. Macerated wound margins. ORTHO- tenderness to palpation left 2nd digit, active MPJ to all digits bilateral - Back Exam Back Exam: absent: CVA tenderness (L), CVA tenderness (R) - Neurological Exam Neurological Exam: Alert, Awake, Oriented x3 Assessment and Plan (1) Cellulitis Status: Acute (2) Diabetes mellitus Status: Acute (3) PVD (peripheral vascular disease) Status: Acute (4) HTN (hypertension) Status: Acute (5) PAD (peripheral artery disease) Status: Acute - Assessment and Plan (Free Text) Assessment: cont rx
[2017-02-14] MEDS: DAPTOmycin 600 MG in Sodium Chloride 0.9% 100 ML IV SCH (17:29)
[2017-02-14] MEDS: Sodium Chloride 0.45% 1,000 ML IV SCH (17:41)
--- NOTE | 2017-02-14 17:59 | CP.PCM.PN ---
<Andrea Winston - Last Filed: 02/14/17 17:57> Subjective - Date & Time of Evaluation Date of Evaluation: 02/14/17 Time of Evaluation: 09:30 - Subjective Subjective: PGY-[address] Morrow Patient seen and examined at bedside. Patient reports feeling well. Patient denies fever, chills, chest pain, dyspnea, abdominal pain, dysuria. Patient was spoken with and understands about the need for him to take prandial insulin. Discharge delayed because podiatry deemed patient unfit to perform wound care on his own and requested home wound care services to be set up for the patient. Patient was spoken with and understands about Dr. Moncada's request. Objective - Vital Signs/Intake and Output Vital Signs (last 24 hours): Temp Pulse Resp BP Pulse Ox 97.6 F 70 20 119/71 99 02/14/17 16:00 02/14/17 16:00 02/14/17 16:00 02/14/17 16:00 02/14/17 16:00 Intake and Output: 02/14/17 02/14/17 06:59 18:59 Intake Total 480 Balance 480 - Medications Medications: Current Medications Acetaminophen (Tylenol 325mg Tab) 650 mg PO Q6 PRN PRN Reason: Pain, Mild (1-3) Last Admin: 02/10/17 10:08 Dose: 650 mg Aspirin (Aspirin Chewable) 81 mg PO DAILY [facility] Last Admin: 02/14/17 09:21 Dose: 81 mg Clopidogrel Bisulfate (Plavix) 75 mg PO DAILY [facility] Last Admin: 02/14/17 09:21 Dose: 75 mg Dextrose (Dextrose 50% Inj) 0 ml IV STAT PRN; Protocol PRN Reason: Hyglycemia Protocol Dextrose (Glutose 15) 0 gm PO ONCE PRN; Protocol PRN Reason: Hypoglycemia Protocol Enalapril Maleate (Vasotec) 10 mg PO DAILY [facility] Last Admin: 02/14/17 09:22 Dose: 10 mg Famotidine (Pepcid) 20 mg PO BID [facility] Last Admin: 02/14/17 17:31 Dose: 20 mg Glucagon (Glucagen Diagnostic Kit) 0 mg IM STAT PRN; Protocol PRN Reason: Hypoglycemia Protocol Heparin Sodium (Porcine) (Heparin) 5,000 units SC Q8 [facility] Last Admin: 02/14/17 15:04 Dose: Not Given Dextrose (Dextrose 5% In Water 1000 Ml) 1,000 mls @ 0 mls/hr IV .Q0M PRN; Protocol; Per Protocol PRN Reason: Hypoglycemia Protocol Sodium Chloride (Sodium Chloride 0.45%) 1,000 mls @ 100 mls/hr IV .Q10H [facility] Last Admin: 02/14/17 17:41 Dose: Not Given Daptomycin 600 mg/ Sodium (Chloride) 100 mls @ 100 mls/hr IV Q24H [facility] Stop: 02/17/17 18:31 Last Admin: 02/14/17 17:29 Dose: 100 mls/hr Insulin Aspart (Novolog) 0 unit SC ACHS [facility] PRN Reason: Protocol Last Admin: 02/14/17 17:30 Dose: Not Given Insulin Aspart (Novolog) 14 unit SC AC [facility] Last Admin: 02/14/17 17:32 Dose: 14 unit Insulin Glargine (Lantus) 40 unit SC HS [facility] Last Admin: 02/13/17 21:42 Dose: 40 u - Labs Labs: 02/14/17 06:55 02/14/17 06:55 PT 10.7 SECONDS (9.7-12.2) 02/10/17 07:03 INR 1.0 02/10/17 07:03 APTT 41 SECONDS (21-34) H 02/10/17 07:03 - Constitutional Appears: No Acute Distress - Head Exam Head Exam: ATRAUMATIC, NORMOCEPHALIC - Eye Exam Eye Exam: EOMI, PERRL - ENT Exam ENT Exam: Mucous Membranes Moist - Respiratory Exam Respiratory Exam: Clear to Ausculation Bilateral. absent: Rales, Rhonchi, Wheezes - Cardiovascular Exam Cardiovascular Exam: REGULAR RHYTHM, +S1, +S2 - GI/Abdominal Exam GI & Abdominal Exam: Soft, Normal Bowel Sounds. absent: Tenderness - Extremities Exam Additional comments: TTP walker, ankle region of left leg. 2nd toe medial aspect - fascia layer visible, no pus or drainage from site. Dressings c/d/i - Neurological Exam Neurological Exam: Alert, Awake, Oriented x3 - Psychiatric Exam Psychiatric exam: Normal Affect, Normal Mood - Skin Skin Exam: Dry, Warm Assessment and Plan - Assessment and Plan (Free Text) Plan: Osteomyelitis of Left 2nd Metatarsal * Podiatry consulted- Dr. Moncada - help appreciated * ID Dr. Rain consulted, help appreciated. * ESR: 37, CRP: high * Xray: irregularity on 2nd middle phalanx- osseous destructive changes related to osteomyelitis vs. nondisplaced fracture. soft tissue swelling. * Left LE MRI: 1. Prominent signal abnormality with bony destructive changes seen at the 2nd middle phalanx extending into the base of the 2nd distal phalanx with decreased T1 signal, increased STIR signal, and patchy post- contrast enhancement consistent with an acute osteomyelitis. 2. Prominent bony destructive changes seen at the head of the 5th metatarsal bone with patchy decreased T1 signal and increased STIR signal with some adjacent mild reactive changes of the base of the 5th proximal phalanx. This is of uncertain clinical etiology however the sequelae of acute infectious and or inflammatory changes cannot entirely be excluded. Clinical correlation. 3. Prominent reticulation and edema seen within the dorsal subcutaneous soft tissues of the mid and forefoot. 4. Moderate hallux valgus deformity. 5. Mild patchy reactive edema seen within the 3rd middle phalanx, nonspecific. 6. Mild patchy reactive edema seen within the proximal medullary cavity of the 5th metatarsal bone, nonspecific. 7. Mild fraying with increased signal seen within the visualized Lisfranc ligament which may represent a low to moderate grade sprain and or mild partial tearing. Clinical correlation. 8. Mild nonspecific reactive edema seen within the middle cuneiform bone. * Request for PICC line - for [employer] IV abx * Blood cultures: Gram positive cocci in clusters, which Dr. Rain believes is a contaminant. * Wound cultures: Streptococcus Mitis * Vancomycin 1gm IV Q24hr, not started on Zosyn 2/2 PCN allergy * Toradol PRN pain * Repeat blood cultures ordered on 02/11/17 - negative x 24 hours * Per conversation with Dr. Rain, since patient with PCN allergy, will do Cubicin 6 mg/kg IV daily for 6 weeks as outpatient infusion. Pending discharge Wednesday after wound care services secured per podiatry's request. PVD (peripheral vascular disease) * Hx of left LE stents (2015) * Surgery consulted- Dr. Ponce, help appreciated * Arterial doppler of left LE: decreased perfusion BL at the SFA * Angiography results: Left LE: Mild plaque through SFA without significant stenosis. Mild popliteal artery stenosis. Anterior and posterior tibial artery occluded.Right LE: Severe calcific plaque in mid SFA with severe stenosis. Distal SFA has mild stenosis. Moderate stenosis of popliteal artery. Anterior tibial artery occluded in proximal segment. Posterior tibial artery is occluded. * Aortofemoral bilateral runoff, selective catheterizaton of left femoral artery performed on 02/11/17 * Continue home medication, Plavix 75mg PO daily Diabetes mellitus * HgA1c: 13.2 * Held home medications 2/2 anticipated angiography * Accuchecks * Consistent carbohydrate diet * ISS-high * Dr. Dixon, outreach nurse consulted, help appreciated. * Endocrinology recommendations: * Lantus 26 mg HS, Novolog 10 units TIDAC, 1/2 NS at 100 cc/hr * Discussed patient's new home prescription from his PMD: Tresiba 200 units Q7D and Janumet which he has filled but has not started taking yet with Dr. Dixon over the phone. Dr. Dixon believes that the patient will still need mealtime coverage in addition to basal insulin. * Per her recommendations, patient may take his Tresiba weekly and his Janumet BID but will also need prandial insulin coverage three times daily. HTN (hypertension) * Continue home medications- Enalapril 10mg PO daily Prophylactic measure * GI PPX: Pepcid 20mg PO BID * DVT PPX: SCDs- C/I due to infection and PVD, Heparin 5,000 SC * PT Eval Disposition: Pending Discharge on Wednesday per podiatry request for wound care services to be set up. Case DW Dr. Odalys Winston PGY-1 <Ion Morrow - Last Filed: 02/14/17 20:11> Objective - Vital Signs/Intake and Output Vital Signs (last 24 hours): Temp Pulse Resp BP Pulse Ox 97.6 F 70 20 119/71 99 02/14/17 16:00 02/14/17 16:00 02/14/17 16:00 02/14/17 16:00 02/14/17 16:00 Intake and Output: 02/14/17 02/15/17 18:59 06:59 Intake Total 480 Balance 480 - Medications Medications: Current Medications Acetaminophen (Tylenol 325mg Tab) 650 mg PO Q6 PRN PRN Reason: Pain, Mild (1-3) Last Admin: 02/10/17 10:08 Dose: 650 mg Aspirin (Aspirin Chewable) 81 mg PO DAILY [facility] Last Admin: 02/14/17 09:21 Dose: 81 mg Clopidogrel Bisulfate (Plavix) 75 mg PO DAILY [facility] Last Admin: 02/14/17 09:21 Dose: 75 mg Dextrose (Dextrose 50% Inj) 0 ml IV STAT PRN; Protocol PRN Reason: Hyglycemia Protocol Dextrose (Glutose 15) 0 gm PO ONCE PRN; Protocol PRN Reason: Hypoglycemia Protocol Enalapril Maleate (Vasotec) 10 mg PO DAILY [facility] Last Admin: 02/14/17 09:22 Dose: 10 mg Famotidine (Pepcid) 20 mg PO BID [facility] Last Admin: 02/14/17 17:31 Dose: 20 mg Glucagon (Glucagen Diagnostic Kit) 0 mg IM STAT PRN; Protocol PRN Reason: Hypoglycemia Protocol Heparin Sodium (Porcine) (Heparin) 5,000 units SC Q8 [facility] Last Admin: 02/14/17 15:04 Dose: Not Given Dextrose (Dextrose 5% In Water 1000 Ml) 1,000 mls @ 0 mls/hr IV .Q0M PRN; Protocol; Per Protocol PRN Reason: Hypoglycemia Protocol Sodium Chloride (Sodium Chloride 0.45%) 1,000 mls @ 100 mls/hr IV .Q10H [facility] Last Admin: 02/14/17 17:41 Dose: Not Given Daptomycin 600 mg/ Sodium (Chloride) 100 mls @ 100 mls/hr IV Q24H [facility] Stop: 02/17/17 18:31 Last Admin: 02/14/17 17:29 Dose: 100 mls/hr Insulin Aspart (Novolog) 0 unit SC ACHS [facility] PRN Reason: Protocol Last Admin: 02/14/17 17:30 Dose: Not Given Insulin Aspart (Novolog) 14 unit SC AC [facility] Last Admin: 02/14/17 17:32 Dose: 14 unit Insulin Glargine (Lantus) 40 unit SC HS [facility] Last Admin: 02/13/17 21:42 Dose: 40 u - Labs Labs: 02/14/17 06:55 02/14/17 06:55 PT 10.7 SECONDS (9.7-12.2) 02/10/17 07:03 INR 1.0 02/10/17 07:03 APTT 41 SECONDS (21-34) H 02/10/17 07:03 Attending/Attestation - Attestation I have personally seen and examined this patient.: Yes I have fully participated in the care of the patient.: Yes I have reviewed all pertinent clinical information, including history, physical exam and plan: Yes Notes (Text): Patient was seen and examined.Discussed about discharge plan,insulin treatment, antibiotics infusion and wound care.Patient will be discharged on Wednesday .Technical Support Professional request for wound care services to be set up and discharge on wednesday . Plan discussed with the resident.Agree with the assessment and plan documented
[2017-02-14] MEDS: (Lantus) Insulin Glargine, Recombinant SC SCH (21:26)
[2017-02-14] MEDS ORDERED: Oxycodone/Acetaminophen 5/325 mg Tab PO STA (21:41)
[2017-02-15] MEDS: Sodium Chloride 0.45% 1,000 ML IV SCH (04:26)
[2017-02-15 07:51] LABS: BASO % 0.8 % (0.0-2.0); EOS # 0.3 K/uL (0.0-0.7); EOS % 5.1 % (0.0-4.0); HEMATOCRIT 38.9 % (35.0-51.0); LYMPH # 1.9 K/uL (1.0-4.3); LYMPH % 34.2 % (20.0-40.0); MEAN CORPUSCULAR HEMOGLOBIN 31.6 pg (27.0-31.0); MEAN PLATELET VOLUME 8.1 fL (7.2-11.7); MONO # 0.4 K/uL (0.0-0.8); MONO % 7.2 % (0.0-10.0); RED CELL DISTRIBUTION WIDTH 13.5 % (11.5-14.5); WHITE BLOOD COUNT 5.5 K/uL (4.8-10.8)
[2017-02-15 07:54] VITALS: PULSE 80; TEMP 98.1; O2SAT 96
[2017-02-15 07:56] LABS: CHLORIDE 99 mmol/L (98-107); POTASSIUM 4.4 mmol/L (3.6-5.2); SODIUM 136 mmol/L (132-148)
[2017-02-15 07:58] LABS: BILIRUBIN,TOTAL 0.7 mg/dL (0.2-1.3); CARBON DIOXIDE 29 mmol/L (22-30); GFR AFRICAN-AMERICAN > 60
[2017-02-15 07:59] LABS: ALB/GLOB RATIO 1.2 (1.0-2.1); ALKALINE PHOSPHATASE 89 U/L (38-126); ALT/SGPT 71 U/L (21-72); AST/SGOT 51 U/L (17-59); BLOOD UREA NITROGEN 12 mg/dL (9-20); CALCIUM 9.1 mg/dl (8.6-10.4); GLUCOSE,RANDOM 174 mg/dL (75-110); MAGNESIUM 1.5 mg/dL (1.6-2.3); PHOSPHOROUS 3.4 mg/dL (2.5-4.5); TOTAL PROTEIN 7.5 g/dL (6.3-8.3)
[2017-02-15] MEDS: (Novolog) Insulin Aspart, Recombinant 100 u/ml 10 ml vial SC SCH ×4 (08:19→12:17)
[2017-02-15] MEDS ORDERED: Magnesium Oxide 400 mg Tab UD PO SCH (10:00)
[2017-02-15 10:24] VITALS: BP 130/70
--- NOTE | 2017-02-15 11:02 | CP.PCM.PN ---
Subjective - Date & Time of Evaluation Date of Evaluation: 02/15/17 Time of Evaluation: 10:00 - Subjective Subjective: Podiatry Progress Note - Dr. Moncada 61 year old male patient seen at bedside concerning left 2nd toe cellulitis. Patient seen resting comfortably at time of visit, AAOx3 and NAD. Patient denies any acute overnight events. Patient reports mild pain to left 2nd toe. Patient continues to use surgical shoe when ambulating. Patient denies N/V/F/D/C /SOB/calf pain. No other pedal complaints at this time. Patient is educated on proper dressing of his left foot. Patient also made aware that he must receive IV antibiotics as outpatient for next 6 weeks. Objective - Vital Signs/Intake and Output Vital Signs (last 24 hours): Temp Pulse Resp BP Pulse Ox 98.1 F 80 20 130/70 96 02/15/17 07:51 02/15/17 07:51 02/15/17 07:51 02/15/17 10:23 02/15/17 07:51 Intake and Output: 02/15/17 02/15/17 06:59 18:59 Intake Total 100 Balance 100 - Medications Medications: Current Medications Acetaminophen (Tylenol 325mg Tab) 650 mg PO Q6 PRN PRN Reason: Pain, Mild (1-3) Last Admin: 02/10/17 10:08 Dose: 650 mg Aspirin (Aspirin Chewable) 81 mg PO DAILY [facility] Last Admin: 02/15/17 10:23 Dose: 81 mg Clopidogrel Bisulfate (Plavix) 75 mg PO DAILY [facility] Last Admin: 02/15/17 10:23 Dose: 75 mg Dextrose (Dextrose 50% Inj) 0 ml IV STAT PRN; Protocol PRN Reason: Hyglycemia Protocol Dextrose (Glutose 15) 0 gm PO ONCE PRN; Protocol PRN Reason: Hypoglycemia Protocol Enalapril Maleate (Vasotec) 10 mg PO DAILY [facility] Last Admin: 02/15/17 10:23 Dose: 10 mg Famotidine (Pepcid) 20 mg PO BID [facility] Last Admin: 02/15/17 10:23 Dose: 20 mg Glucagon (Glucagen Diagnostic Kit) 0 mg IM STAT PRN; Protocol PRN Reason: Hypoglycemia Protocol Heparin Sodium (Porcine) (Heparin) 5,000 units SC Q8 [facility] Last Admin: 02/15/17 05:21 Dose: Not Given Dextrose (Dextrose 5% In Water 1000 Ml) 1,000 mls @ 0 mls/hr IV .Q0M PRN; Protocol; Per Protocol PRN Reason: Hypoglycemia Protocol Sodium Chloride (Sodium Chloride 0.45%) 1,000 mls @ 100 mls/hr IV .Q10H [facility] Last Admin: 02/15/17 04:26 Dose: Not Given Daptomycin 600 mg/ Sodium (Chloride) 100 mls @ 100 mls/hr IV Q24H [facility] Stop: 02/17/17 18:31 Last Admin: 02/14/17 17:29 Dose: 100 mls/hr Daptomycin 600 mg/ Sodium (Chloride) 100 mls @ 100 mls/hr IV ONCE ONE Stop: 02/15/17 11:29 Insulin Aspart (Novolog) 0 unit SC ACHS [facility] PRN Reason: Protocol Last Admin: 02/15/17 08:19 Dose: Not Given Insulin Aspart (Novolog) 14 unit SC AC [facility] Last Admin: 02/15/17 08:20 Dose: 14 unit Insulin Glargine (Lantus) 40 unit SC HS [facility] Last Admin: 02/14/17 21:26 Dose: 40 u Magnesium Oxide (Mag-Ox) 400 mg PO BID [facility] Stop: 02/16/17 10:01 Last Admin: 02/15/17 10:24 Dose: 400 mg - Labs Labs: 02/15/17 07:42 02/15/17 07:42 PT 10.7 SECONDS (9.7-12.2) 02/10/17 07:03 INR 1.0 02/10/17 07:03 APTT 41 SECONDS (21-34) H 02/10/17 07:03 - Constitutional Appears: Well, Non-toxic - Head Exam Head Exam: ATRAUMATIC - Extremities Exam Additional comments: VASC- DP/PT pulses faintly palpable, temperature gradient warm to warm, cap refill <3 sec to all digits, +1 pitting edema noted to LLE NEURO- pedal sensation is grossly diminished DERM-full thickness ulceration noted to medial aspect of left 2nd digit PIPJ, with fibrogranular base, no purulence, no drainage, no malodor, neg probe to bone, slight erythema noted to left 2nd digit. Maceration noted periwound. ORTHO- tenderness to palpation left 2nd digit, active MPJ to all digits bilateral - Neurological Exam Neurological Exam: Awake, Oriented x3 - Psychiatric Exam Psychiatric exam: Normal Affect, Normal Mood - Skin Skin Exam: Normal Color Assessment and Plan - Assessment and Plan (Free Text) Assessment: 61 y/o diabetic male patient with ulceration of left 2nd digit with underlying OM, Plan: Patient seen and evaluated at bedside Discussed with attending, Dr. Moncada Labs and vitals reviewed = WBC 5.5, afebrile X-ray and MRI results reviewed- Assessed as osteomyelitis of left foot 2nd digit. Patient refuses surgical option for resection of infect 2nd digit bone Patient opts for conservative treatment options Patient to be placed on 6 weeks of Cubicin as outpatient infusion upon discharge Wound cleansed with sterile saline and packed with betadine soaked 2x2 + DSD Recommending Home Nursing wound correction health denied by [facility]. Patient was educated on proper method of dressing change Dressing orders: Betadine soaked 2x2 packed into ulceration, 4x4 gauze, kerlix. Patient is to be weight bearing as tolerated in surgical shoe at all times. Stable from podiatry standpoint for discharge Patient to follow up with Dr. Moncada in office on an outpatient basis Will continue to follow patient while in house
--- NOTE | 2017-02-15 12:56 | CP.PCM.DIS ---
<Domonique Jacobs - Last Filed: 02/15/17 12:53> Provider - Provider Date of Admission: 02/09/17 19:49 Attending physician: Jeremy De Leon MD Time Spent in preparation of Discharge (in minutes): 55 Hospital Course - Lab Results Lab Results: Micro Results 02/11/17 07:26 Blood Blood Culture - Preliminary NO GROWTH AFTER 4 DAYS 02/11/17 18:30 Blood Blood Culture - Preliminary NO GROWTH AFTER 3 DAYS 02/09/17 17:45 Blood Blood Culture - Final NO GROWTH AFTER 5 DAYS 02/09/17 17:45 Blood Gram Stain - Final TEST NOT PERFORMED 02/11/17 17:30 Blood Blood Culture - Final Bacillus Species 02/11/17 17:30 Blood Gram Stain - Final 02/09/17 17:30 Blood S.aureus & Coag-Neg Staph PNA FISH - Final 02/09/17 17:30 Blood Blood Culture - Final Coagulase Neg Staphylococcus 02/09/17 17:30 Blood Gram Stain - Final 02/09/17 17:25 Toe Gram Stain - Final 02/09/17 17:25 Toe Wound Culture - Final Streptococcus Mitis Most Recent Lab Values WBC 5.5 K/uL (4.8-10.8) 02/15/17 07:42 RBC 4.19 Mil/uL (4.40-5.90) L 02/15/17 07:42 Hgb 13.2 g/dL (12.0-18.0) 02/15/17 07:42 Hct 38.9 % (35.0-51.0) 02/15/17 07:42 MCV 93.0 fL (80.0-94.0) 02/15/17 07:42 MCH 31.6 pg (27.0-31.0) H 02/15/17 07:42 MCHC 34.0 g/dL (33.0-37.0) 02/15/17 07:42 RDW 13.5 % (11.5-14.5) 02/15/17 07:42 Plt Count 245 K/uL (130-400) 02/15/17 07:42 MPV 8.1 fL (7.2-11.7) 02/15/17 07:42 Neut % (Auto) 52.7 % (50.0-75.0) 02/15/17 07:42 Lymph % (Auto) 34.2 % (20.0-40.0) 02/15/17 07:42 Dane % (Auto) 7.2 % (0.0-10.0) 02/15/17 07:42 Eos % (Auto) 5.1 % (0.0-4.0) H 02/15/17 07:42 Baso % (Auto) 0.8 % (0.0-2.0) 02/15/17 07:42 Neut # 2.9 K/uL (1.8-7.0) 02/15/17 07:42 Lymph # 1.9 K/uL (1.0-4.3) 02/15/17 07:42 Dane # 0.4 K/uL (0.0-0.8) 02/15/17 07:42 Eos # 0.3 K/uL (0.0-0.7) 02/15/17 07:42 Baso # 0.0 K/uL (0.0-0.2) 02/15/17 07:42 ESR 37 mm/hr (0-15) H 02/09/17 17:33 PT 10.7 SECONDS (9.7-12.2) 02/10/17 07:03 INR 1.0 02/10/17 07:03 APTT 41 SECONDS (21-34) H 02/10/17 07:03 Sodium 136 mmol/L (132-148) 02/15/17 07:42 Potassium 4.4 mmol/L (3.6-5.2) 02/15/17 07:42 Chloride 99 mmol/L (98-107) 02/15/17 07:42 Carbon Dioxide 29 mmol/L (22-30) 02/15/17 07:42 Anion Gap 12 (10-20) 02/15/17 07:42 BUN 12 mg/dL (9-20) 02/15/17 07:42 Creatinine 0.6 mg/dL (0.8-1.5) L 02/15/17 07:42 Est GFR ( Amer) > 60 02/15/17 07:42 Est GFR (Non-Af Amer) > 60 02/15/17 07:42 POC Glucose (mg/dL) 101 mg/dL (65-110) 02/15/17 11:20 Random Glucose 174 mg/dL (75-110) H 02/15/17 07:42 Hemoglobin A1c 13.6 % (4.2-6.5) H D 02/10/17 09:51 Lactic Acid 2.0 mmol/L (0.7-2.1) 02/09/17 17:33 Calcium 9.1 mg/dl (8.6-10.4) 02/15/17 07:42 Phosphorus 3.4 mg/dL (2.5-4.5) 02/15/17 07:42 Magnesium 1.5 mg/dL (1.6-2.3) L 02/15/17 07:42 Total Bilirubin 0.7 mg/dL (0.2-1.3) 02/15/17 07:42 AST 51 U/L (17-59) 02/15/17 07:42 ALT 71 U/L (21-72) 02/15/17 07:42 Alkaline Phosphatase 89 U/L (38-126) 02/15/17 07:42 C-React Prot High Sens > 15.00 mg/L (1.00-3.00) H 02/09/17 17:33 Total Protein 7.5 g/dL (6.3-8.3) 02/15/17 07:42 Albumin 4.1 g/dL (3.5-5.0) 02/15/17 07:42 Globulin 3.4 gm/dL (2.2-3.9) 02/15/17 07:42 Albumin/Globulin Ratio 1.2 (1.0-2.1) 02/15/17 07:42 Triglycerides 243 mg/dL (0-149) H 02/11/17 07:47 Cholesterol 177 mg/dL (0-199) 02/11/17 07:47 LDL Cholesterol Direct 100 mg/dL (0-129) 02/11/17 07:47 HDL Cholesterol 52 mg/dL (30-70) 02/11/17 07:47 TSH 3rd Generation 0.98 mIU/L (0.46-4.68) 02/11/17 07:47 Random Vancomycin < 5.00 ug/mL 02/14/17 13:29 - Hospital Course Hospital Course: Upon Admission: Patient is a 61 year old male with a past medical history of HTN and DM, presents to the ED with an infection of the 2nd digit of the foot. 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 Moncada. Patient reports that someone stepped on his foot last Wednesday, and since then, the infection developed. Patient reports 8/10 pain from the base of his toe to the tip. He reports nothing makes it worse or better. He tried naproxen with no relief. He currently denies having a fever, leg pain and swelling, nausea, vomiting, chest pain, shortness of breath, abdominal pain, and headaches. 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 Osteomyelitis of Left 2nd Metatarsal * Podiatry consulted- Dr. Moncada - help appreciated * ID Dr. Rain consulted, help appreciated. * ESR: 37, CRP: high * Xray: irregularity on 2nd middle phalanx- osseous destructive changes related to osteomyelitis vs. nondisplaced fracture. soft tissue swelling. * Left LE MRI: 1. Prominent signal abnormality with bony destructive changes seen at the 2nd middle phalanx extending into the base of the 2nd distal phalanx with decreased T1 signal, increased STIR signal, and patchy post- contrast enhancement consistent with an acute osteomyelitis. 2. Prominent bony destructive changes seen at the head of the 5th metatarsal bone with patchy decreased T1 signal and increased STIR signal with some adjacent mild reactive changes of the base of the 5th proximal phalanx. This is of uncertain clinical etiology however the sequelae of acute infectious and or inflammatory changes cannot entirely be excluded. Clinical correlation. 3. Prominent reticulation and edema seen within the dorsal subcutaneous soft tissues of the mid and forefoot. 4. Moderate hallux valgus deformity. 5. Mild patchy reactive edema seen within the 3rd middle phalanx, nonspecific. 6. Mild patchy reactive edema seen within the proximal medullary cavity of the 5th metatarsal bone, nonspecific. 7. Mild fraying with increased signal seen within the visualized Lisfranc ligament which may represent a low to moderate grade sprain and or mild partial tearing. Clinical correlation. 8. Mild nonspecific reactive edema seen within the middle cuneiform bone. * Request for PICC line - for correction IV abx * Blood cultures: Gram positive cocci in clusters, which Dr. Rain believes is a contaminant. * Wound cultures: Streptococcus Mitis * Vancomycin 1gm IV Q24hr, not started on Zosyn 2/2 PCN allergy * Toradol PRN pain * Repeat blood cultures ordered on 02/11/17 - negative x 24 hours * Per conversation with Dr. Rain, since patient with PCN allergy, will do Cubicin 6 mg/kg IV daily for 6 weeks as outpatient infusion. PVD (peripheral vascular disease) * Hx of left LE stents (2015) * Surgery consulted- Dr. Ponce, help appreciated * Arterial doppler of left LE: decreased perfusion BL at the SFA * Angiography results: Left LE: Mild plaque through SFA without significant stenosis. Mild popliteal artery stenosis. Anterior and posterior tibial artery occluded.Right LE: Severe calcific plaque in mid SFA with severe stenosis. Distal SFA has mild stenosis. Moderate stenosis of popliteal artery. Anterior tibial artery occluded in proximal segment. Posterior tibial artery is occluded. * Aortofemoral bilateral runoff, selective catheterizaton of left femoral artery performed on 02/11/17 * Continue home medication, Plavix 75mg PO daily Diabetes mellitus * HgA1c: 13.2 * Held home medications 2/2 anticipated angiography * Accuchecks * Consistent carbohydrate diet * ISS-high * Dr. Dixon, physician coding specialist consulted, help appreciated. * Endocrinology recommendations: * Lantus 26 mg HS, Novolog 10 units TIDAC, 1/2 NS at 100 cc/hr * Discussed patient's new home prescription from his PMD: Tresiba 200 units Q7D and Janumet which he has filled but has not started taking yet with Dr. Dixon over the phone. Dr. Dixon believes that the patient will still need mealtime coverage in addition to basal insulin. * Per her recommendations, patient may take his Tresiba weekly and his Janumet BID but will also need prandial insulin coverage three times daily. HTN (hypertension) * Continue home medications- Enalapril 10mg PO daily Please review EMR for full record. Discharge Exam - Head Exam Head Exam: ATRAUMATIC, NORMOCEPHALIC - Additional Findings Additional findings: - Constitutional Appears: No Acute Distress - Head Exam Head Exam: ATRAUMATIC, NORMOCEPHALIC - Eye Exam Eye Exam: EOMI, PERRL - ENT Exam ENT Exam: Mucous Membranes Moist - Respiratory Exam Respiratory Exam: Clear to Ausculation Bilateral. absent: Rales, Rhonchi, Wheezes - Cardiovascular Exam Cardiovascular Exam: REGULAR RHYTHM, +S1, +S2 - GI/Abdominal Exam GI & Abdominal Exam: Soft, Normal Bowel Sounds. absent: Tenderness - Extremities Exam Additional comments: TTP walker, ankle region of left leg. 2nd toe medial aspect - fascia layer visible, no pus or drainage from site. Dressings c/d/i - Neurological Exam Neurological Exam: Alert, Awake, Oriented x3 - Psychiatric Exam Psychiatric exam: Normal Affect, Normal Mood - Skin Skin Exam: Dry, Warm Discharge Plan - Discharge Medications Prescriptions: Aspirin [Aspirin Chewable] 81 mg PO DAILY #30 chew Clopidogrel [Plavix] 75 mg PO DAILY #30 tab Enalapril Maleate [Vasotec] 10 mg PO DAILY #30 tab - Follow Up Plan Condition: GOOD Disposition: HOME/ ROUTINE Instructions: Enalapril (By mouth), Aspirin (By mouth), Clopidogrel (By mouth) , Cellulitis (DC), Osteomyelitis (DC), Diabetic Foot Care (DC), Meal Planning with Diabetes Exchanges (DC) Additional Instructions: Patient is to continue with Outpatient [facility]fusion [facility] to receive daily IV antibiotic for the next 6 weeks for the infection in your toe. You are to continue the following medications as: ASA 81mg by mouth daily ( for the stent you just had placed in your left leg), Plavix 75mg by mouth daily ( for the stent you just had placed in your left leg), vasotec 10mg by mouth daily ( for your blood pressure) and continue your diabetes medication as recommended by your Primary Care Doctor. You are to follow up with your Primary Care Doctor within 1 week. You are to follow up with Podiatry within 1 week. Please return to the ED if your symptoms worsen or return. Referrals: Foreign Moncada DPM [Staff Provider] - <Luis A Rosenberg - Last Filed: 02/15/17 16:26> Provider - Provider Date of Admission: 02/09/17 19:49 Attending physician: Luis A Rosenberg, Hospital Course - Lab Results Lab Results: Micro Results 02/11/17 07:26 Blood Blood Culture - Preliminary NO GROWTH AFTER 4 DAYS 02/11/17 18:30 Blood Blood Culture - Preliminary NO GROWTH AFTER 3 DAYS 02/09/17 17:45 Blood Blood Culture - Final NO GROWTH AFTER 5 DAYS 02/09/17 17:45 Blood Gram Stain - Final TEST NOT PERFORMED 02/11/17 17:30 Blood Blood Culture - Final Bacillus Species 02/11/17 17:30 Blood Gram Stain - Final 02/09/17 17:30 Blood S.aureus & Coag-Neg Staph PNA FISH - Final 02/09/17 17:30 Blood Blood Culture - Final Coagulase Neg Staphylococcus 02/09/17 17:30 Blood Gram Stain - Final 02/09/17 17:25 Toe Gram Stain - Final 02/09/17 17:25 Toe Wound Culture - Final Streptococcus Mitis Most Recent Lab Values WBC 5.5 K/uL (4.8-10.8) 02/15/17 07:42 RBC 4.19 Mil/uL (4.40-5.90) L 02/15/17 07:42 Hgb 13.2 g/dL (12.0-18.0) 02/15/17 07:42 Hct 38.9 % (35.0-51.0) 02/15/17 07:42 MCV 93.0 fL (80.0-94.0) 02/15/17 07:42 MCH 31.6 pg (27.0-31.0) H 02/15/17 07:42 MCHC 34.0 g/dL (33.0-37.0) 02/15/17 07:42 RDW 13.5 % (11.5-14.5) 02/15/17 07:42 Plt Count 245 K/uL (130-400) 02/15/17 07:42 MPV 8.1 fL (7.2-11.7) 02/15/17 07:42 Neut % (Auto) 52.7 % (50.0-75.0) 02/15/17 07:42 Lymph % (Auto) 34.2 % (20.0-40.0) 02/15/17 07:42 Dane % (Auto) 7.2 % (0.0-10.0) 02/15/17 07:42 Eos % (Auto) 5.1 % (0.0-4.0) H 02/15/17 07:42 Baso % (Auto) 0.8 % (0.0-2.0) 02/15/17 07:42 Neut # 2.9 K/uL (1.8-7.0) 02/15/17 07:42 Lymph # 1.9 K/uL (1.0-4.3) 02/15/17 07:42 Dane # 0.4 K/uL (0.0-0.8) 02/15/17 07:42 Eos # 0.3 K/uL (0.0-0.7) 02/15/17 07:42 Baso # 0.0 K/uL (0.0-0.2) 02/15/17 07:42 ESR 37 mm/hr (0-15) H 02/09/17 17:33 PT 10.7 SECONDS (9.7-12.2) 02/10/17 07:03 INR 1.0 02/10/17 07:03 APTT 41 SECONDS (21-34) H 02/10/17 07:03 Sodium 136 mmol/L (132-148) 02/15/17 07:42 Potassium 4.4 mmol/L (3.6-5.2) 02/15/17 07:42 Chloride 99 mmol/L (98-107) 02/15/17 07:42 Carbon Dioxide 29 mmol/L (22-30) 02/15/17 07:42 Anion Gap 12 (10-20) 02/15/17 07:42 BUN 12 mg/dL (9-20) 02/15/17 07:42 Creatinine 0.6 mg/dL (0.8-1.5) L 02/15/17 07:42 Est GFR ( Amer) > 60 02/15/17 07:42 Est GFR (Non-Af Amer) > 60 02/15/17 07:42 POC Glucose (mg/dL) 101 mg/dL (65-110) 02/15/17 11:20 Random Glucose 174 mg/dL (75-110) H 02/15/17 07:42 Hemoglobin A1c 13.6 % (4.2-6.5) H D 02/10/17 09:51 Lactic Acid 2.0 mmol/L (0.7-2.1) 02/09/17 17:33 Calcium 9.1 mg/dl (8.6-10.4) 02/15/17 07:42 Phosphorus 3.4 mg/dL (2.5-4.5) 02/15/17 07:42 Magnesium 1.5 mg/dL (1.6-2.3) L 02/15/17 07:42 Total Bilirubin 0.7 mg/dL (0.2-1.3) 02/15/17 07:42 AST 51 U/L (17-59) 02/15/17 07:42 ALT 71 U/L (21-72) 02/15/17 07:42 Alkaline Phosphatase 89 U/L (38-126) 02/15/17 07:42 C-React Prot High Sens > 15.00 mg/L (1.00-3.00) H 02/09/17 17:33 Total Protein 7.5 g/dL (6.3-8.3) 02/15/17 07:42 Albumin 4.1 g/dL (3.5-5.0) 02/15/17 07:42 Globulin 3.4 gm/dL (2.2-3.9) 02/15/17 07:42 Albumin/Globulin Ratio 1.2 (1.0-2.1) 02/15/17 07:42 Triglycerides 243 mg/dL (0-149) H 02/11/17 07:47 Cholesterol 177 mg/dL (0-199) 02/11/17 07:47 LDL Cholesterol Direct 100 mg/dL (0-129) 02/11/17 07:47 HDL Cholesterol 52 mg/dL (30-70) 02/11/17 07:47 TSH 3rd Generation 0.98 mIU/L (0.46-4.68) 02/11/17 07:47 Random Vancomycin < 5.00 ug/mL 02/14/17 13:29 Attending/Attestation - Attestation I have personally seen and examined this patient.: Yes I have fully participated in the care of the patient.: Yes I have reviewed all pertinent clinical information, including history, physical exam and plan: Yes Notes (Text): Medical attending: Patient was seen and examined by me, agree with the above note by medical collections. This is my first time meeting the patient, and to review some the previous notes , discussed with the medical residents, discussed with the patient. As mentioned above in the resident note, the patient was sent in from his primary medical physician due to concerns of the lower extremity for potential cellulitis he underwent further imaging modalities including MRI which revealed that he actually had osteomyelitis of the lower extremity particularly around toe and metatarsal areas he's been evaluated by podiatry as well as by infectious disease. He had a PICC line placement for long-term IV antibiotics, the patient will be sent today. He's can be going to the infusion center for 6 weeks of IV daptomycin. Per review of lab work while here he's grown out 1 staph aureus + culture on blood which appears to be contaminated. Also he grew out a gram-positive wound culture as well. When seen today he appeared to be very well we explained to him that he's got follow-up with his primary medical physician with regards to his diabetes control. We emphasized to him that it's very important that he takes his medication since the diabetes can make wound healing much more complicated Thank you very much, Luis A Rosenberg
[2017-02-15] MEDS: DAPTOmycin 600 MG in Sodium Chloride 0.9% 100 ML IV ONE ×2 (13:02→14:28)
[2017-02-15] MEDS ORDERED: DAPTOmycin 600 MG in Sodium Chloride 0.9% 100 ML IV ONE (13:30)
--- NOTE | 2017-02-15 18:49 | PN ---
ENDO FOLLOWUP NOTE LOCATION: In room 371. This is a 61-year-old male with recent uncontrolled type 2 insulin requiring diabetes, now being followed closely for metabolic management. His glycemic levels are fluctuating, but improved and the latest glucose levels today have ranged from 101 to 227 mg/dL. It was 259 early this morning as noted. His latest chemistries showed a BUN of 12, sodium 136, potassium 4.4, chloride 99, CO2 of 29, glucose 174 and creatinine 0.6. He is scheduled for possible discharge today. He was managed here for lower extremity cellulitis and will be getting IV antibiotics at the inpatient center as noted. So at this time, we would recommend the combination of Novolog given as 14 units subcu t.i.d. before meals and Tresiba insulin given by his medical doctor on the outpatient. He will also be taking Janumet medication as noted. He will follow up with his medical doctor for outpatient diabetic and medical management. Lilia Dixon MD
== END 2017-02-15 16:00 | disposition home or self-care (01) | DRG 638 ==
LOC: C.ER 16:20 → C.9E 19:49 → C.3T 20:57
PROVIDERS: ADMIT Hospitalist; ATTEND Hospitalist
PROC: B420ZZZ Computerized Tomography (CT Scan) of Abdominal Aorta (ICD-10-PCS; 2017-02-11)
PROC: 02HV33Z Insertion of Infusion Device into Superior Vena Cava, Percutaneous Approach (ICD-10-PCS; 2017-02-11)
PROC: B518ZZA Fluoroscopy of Superior Vena Cava, Guidance (ICD-10-PCS; 2017-02-11)
PROC: 05HB33Z Insertion of Infusion Device into Right Basilic Vein, Percutaneous Approach (ICD-10-PCS; 2017-02-11)
PROC: B54MZZA Ultrasonography of Right Upper Extremity Veins, Guidance (ICD-10-PCS; 2017-02-11)
PROC: B42 Imaging, Lower Arteries, Computerized Tomography (CT Scan) (ICD-10-PCS; principal; 2017-02-11 14:00)
DX: E11.621 Type 2 diabetes mellitus with foot ulcer (principal); M86.172 Other acute osteomyelitis, left ankle and foot; E11.42 Type 2 diabetes mellitus with diabetic polyneuropathy; E11.51 Type 2 diabetes mellitus with diabetic peripheral angiopathy without gangrene; L97.529 Non-pressure chronic ulcer of other part of left foot with unspecified severity; E11.69 Type 2 diabetes mellitus with other specified complication; L03.032 Cellulitis of left toe; E11.319 Type 2 diabetes mellitus with unspecified diabetic retinopathy without macular edema; B95.4 Other streptococcus as the cause of diseases classified elsewhere; I10 Essential (primary) hypertension; I25.10 Atherosclerotic heart disease of native coronary artery without angina pectoris; E78.5 Hyperlipidemia, unspecified; Z79.4 Long term (current) use of insulin; Z87.891 Personal history of nicotine dependence; Z88.0 Allergy status to penicillin

== ENCOUNTER 2017-06-19 05:20 | Emergency (ER) | payer OTHER ==
[2017-06-19 05:22] VITALS: BMI 27.8
[2017-06-19 05:28] VITALS: BP 157/91; PULSE 85; RESP 22; TEMP 98.4; O2SAT 96
--- NOTE | 2017-06-19 06:10 | C.PDOC ---
History Of Present Illness 62 year old male presents to the ED for evaluation of right elbow pain. Patient states that he slipped and fell causing him to hit his right elbow against the sidewalk. Patient is currently c/o pain and swelling to the right elbow and a tingling sensation that radiates down towards his hand. Patient denies LOC, headache, head injury, visual changes, weakness, numbness. Time Seen by Provider: 06/19/17 05:31 Chief Complaint (Nursing): Upper Extremity Problem/Injury History Per: Patient History/Exam Limitations: no limitations Onset/Duration Of Symptoms: Hrs Current Symptoms Are (Timing): Still Present Quality: "Pain" Exacerbating Factor(s): Movement Recent travel outside of the [place]: No Additional History Per: Patient Past Medical History Reviewed: Historical Data, Nursing Documentation, Vital Signs Vital Signs: Last Vital Signs Temp 98.4 F 06/19/17 05:26 Pulse 85 06/19/17 05:26 Resp 22 06/19/17 05:26 BP 157/91 H 06/19/17 05:26 Pulse Ox 96 06/19/17 06:14 - Medical History PMH: Bronchitis, Diabetes, Diverticulitis, HTN Denies: Chronic Kidney Disease Surgical History: No Surg Hx - [facility] Procedures COMPUTERIZED TOMOGRAPHY (CT SCAN) OF ABDOMINAL AORTA (02/09/17) COMPUTERIZED TOMOGRAPHY (CT SCAN) OF L LOW EXTREM ART (02/09/17) DILATE L PERONEAL ART W DRUG-ELUT INTRALUM, PERC (11/26/15) EXTIRPATION OF MATTER FROM L PERONEAL ART, PERC APPROACH (11/26/15) FLUOROSCOPY OF SUPERIOR VENA CAVA, GUIDANCE (02/09/17) INSERTION OF INFUSION DEV INTO R BASILIC VEIN, PERC APPROACH (02/09/17) INSERTION OF INFUSION DEV INTO SUP VENA CAVA, PERC APPROACH (02/09/17) ULTRASONOGRAPHY OF RIGHT UPPER EXTREMITY VEINS, GUIDANCE (02/09/17) ULTRASONOGRAPHY OF SUPERIOR VENA CAVA, GUIDANCE (11/26/15) Family History: States: [place] (Both mother and father.), CAD (Both Mother and father.) - Social History Hx Tobacco Use: No Hx Alcohol Use: Yes (3 beers daily) Hx Substance Use: No - Immunization History Hx Tetanus Toxoid Vaccination: No Hx Influenza Vaccination: Yes Hx Pneumococcal Vaccination: Yes Review Of Systems Musculoskeletal: Positive for: Arm Pain Neurological: Negative for: Weakness, Numbness, Other (loc or head injuries) Physical Exam - Physical Exam Appears: Non-toxic, No Acute Distress Skin: Normal Color, Warm, Dry Head: Atraumatic, Normacephalic Eye(s): bilateral: Normal Inspection Neck: Normal ROM, Supple Extremity: Normal ROM, Tenderness (right elbow), Capillary Refill (< 2 seconds) , No Deformity, No Swelling, Other (small hematoma to medial aspect of right epicondylar area. Remainder of RUE normal) Extremity: Right: Normal Color And Temperature Pulses: Left Radial: Normal, Right Radial: Normal Neurological/Psych: Oriented x3, Normal Speech, Normal Motor, Normal Sensation Gait: Steady ED Course And Treatment O2 Sat by Pulse Oximetry: 96 (On RA) Pulse Ox Interpretation: Normal - Other Rad right elbow X-Ray: Interpreted by Me, Viewed By Me (and Dr Garcia) Interpretation: possible old vs new chip fx at the olecrano m no dislocation Progress Note: Plan: -Ibuprofen 600 mg PO. -Right elbow X-Ray. pt placed in sling for support and will follow up with PMD. Return precautions d/w pt who [facility] plan Reassessment Condition: Improved Disposition - Disposition Referrals: Ronnie Moncada [Staff Provider] - Disposition: HOME/ ROUTINE Disposition Time: 06:35 Condition: STABLE Additional Instructions: Apply ICE to area Follow up with PMD naproxen for pain Return to ER if worse Prescriptions: Ibuprofen [Motrin] 600 mg PO Q6H #20 tab Instructions: Contusion (DC) Forms: [facility] (Czech), Work Excuse - Clinical Impression Clinical Impression: Injury of right elbow, Contusion of right elbow - PA / MANAGER QUANTITATIVE / Resident Statement MD/DO has reviewed & agrees with the documentation as recorded. - Scribe Statement The provider has reviewed the documentation as recorded by the Scribe Bartolome Camacho All medical record entries made by the Scribe were at my direction and personally dictated by me. I have reviewed the chart and agree that the record accurately reflects my personal performance of the history, physical exam, medical decision making, and the department course for this patient. I have also personally directed, reviewed, and agree with the discharge instructions and disposition.
--- NOTE | 2017-06-19 10:05 | RAD ---
PROCEDURE: Radiographs of the right elbow. HISTORY: pain, swelling , fall COMPARISON: No prior. FINDINGS: BONES: Normal. No fracture. JOINTS: Normal. No osteoarthritis. SOFT TISSUES: Mild soft tissue swelling JOINT EFFUSION: None. OTHER FINDINGS: None. IMPRESSION: No evidence of acute fracture or dislocation.
== END 2017-06-19 07:00 | disposition home or self-care (01) ==
LOC: C.ER 05:20
DX: S50.01XA Contusion of right elbow, initial encounter (principal); W01.0XXA Fall on same level from slipping, tripping and stumbling without subsequent striking against object, initial encounter; Y92.9 Unspecified place or not applicable

== ENCOUNTER 2018-01-04 15:39 | Emergency (ER) | payer OTHER ==
[2018-01-04 15:39] VITALS: BMI 27.8
[2018-01-04 16:02] VITALS: PULSE 80
--- NOTE | 2018-01-04 16:37 | C.PDOC ---
History Of Present Illness 62 y/o male with history of A-fib, DM and HTN brought to ED by EMS for evaluation of dizziness, chest pain and palpitations developed SAMPLE SELECTOR. Upon EMS arrival patient found to be in rapid A-fib, given 27mg of Cardizem to return to regular rhythm. At ED patient states symptoms resolved and only complains of Constipations, reports last normal bowel movement 2 days ago. Patient denies nausea, vomiting, leg swelling or any other complaints at this time. PMD: Dr. Moncada Time Seen by Provider: 01/04/18 16:01 Chief Complaint (Nursing): Palpitations History Per: Patient History/Exam Limitations: no limitations Onset/Duration Of Symptoms: Hrs Current Symptoms Are (Timing): Still Present Past Medical History Reviewed: Historical Data, Nursing Documentation, Vital Signs Vital Signs: Last Vital Signs Temp 98.2 F 01/04/18 15:46 Pulse 80 01/04/18 15:50 Resp 15 01/04/18 15:46 BP 121/57 L 01/04/18 15:46 Pulse Ox 98 01/04/18 18:10 - Medical History PMH: Atrial Fibrillation, Bronchitis, Diabetes, Diverticulitis, HTN Surgical History: No Surg Hx - [facility] Procedures COMPUTERIZED TOMOGRAPHY (CT SCAN) OF ABDOMINAL AORTA (02/09/17) COMPUTERIZED TOMOGRAPHY (CT SCAN) OF L LOW EXTREM ART (02/09/17) DILATE L PERONEAL ART W DRUG-ELUT INTRALUM, PERC (11/26/15) EXTIRPATION OF MATTER FROM L PERONEAL ART, PERC APPROACH (11/26/15) FLUOROSCOPY OF SUPERIOR VENA CAVA, GUIDANCE (02/09/17) INSERTION OF INFUSION DEV INTO R BASILIC VEIN, PERC APPROACH (02/09/17) INSERTION OF INFUSION DEV INTO SUP VENA CAVA, PERC APPROACH (02/09/17) ULTRASONOGRAPHY OF RIGHT UPPER EXTREMITY VEINS, GUIDANCE (02/09/17) ULTRASONOGRAPHY OF SUPERIOR VENA CAVA, GUIDANCE (11/26/15) Family History: States: [place] (Both mother and father.), CAD (Both Mother and father.) - Social History Hx Tobacco Use: No Hx Alcohol Use: Yes (3 beers daily) Hx Substance Use: No - Immunization History Hx Tetanus Toxoid Vaccination: No Hx Influenza Vaccination: Yes Hx Pneumococcal Vaccination: Yes Review Of Systems Constitutional: Negative for: Fever, Chills Cardiovascular: Positive for: Chest Pain, Palpitations Respiratory: Negative for: Cough Gastrointestinal: Negative for: Nausea, Vomiting Skin: Negative for: Rash Neurological: Positive for: Dizziness Physical Exam - Physical Exam Appears: Non-toxic, No Acute Distress Skin: Warm, Dry, No Rash Head: Atraumatic, Normacephalic Eye(s): bilateral: Normal Inspection Oral Mucosa: Moist Neck: Supple Cardiovascular: Rhythm Regular Respiratory: Normal Breath Sounds, No Rales, No Rhonchi, No Wheezing Gastrointestinal/Abdominal: Soft, No Tenderness, No Guarding, No Rebound Extremity: Normal ROM, No Pedal Edema, Capillary Refill (<2 seconds) Neurological/Psych: Oriented x3, Normal Speech (Speaking in full sentences) ED Course And Treatment - Laboratory Results Result Diagrams: 01/04/18 16:56 01/04/18 16:56 ECG: Interpreted By Me, Viewed By Me ECG Rhythm: Sinus Rhythm Rate From EC (BPM) O2 Sat by Pulse Oximetry: 98 (RA) Against Medical Advice - AMA Patient Left Against Medical Advice: The patient declines admission to the hospital and wishes to leave the Emergency Department. This action is against my medical advice. This decision was made with informed refusal. The patient was told that admission to the hospital is necessary. Explanation of the reasons why were discussed. The risks of leaving were explained to the patient and include, but are not limited to, worsening of known or currently unknown conditions, permanent disability and from undiagnosed or untreated conditions. The patient has the capacity to make this informed decision and understands my explanation of the current medical problem and risks of leaving. The patient voluntarily accepts these risks and signed an AMA form documenting our conversation. The patient was given the opportunity to ask questions and reconsider. The patient was encouraged to return to the Emergency Department at any time for further care. Medical Decision Making Medical Decision Making: Progress: 1706: Dr Coral garcia through answering service 1808- Dr. Coral garcia 2nd time 1809- Patient refuses to stay in hospital, signing out AMA. I endorsed to pt that he requires admission for further investigation in to his AFib w/ RVR. I endorsed the possibility of permanent disability and or from a stroke or heart attack. Pt notes that he is not having any pain. I endorsed that I had paged his PMD and that I would like him to talk to his PMD, Dr. Moncada. Pt notes that he will leave even if Dr. Moncada wants him to stay. I shared that we are still wating for TSH results as well as low magnesium treatment. Pt notes that he does not want to stay for anything and would like his labs and would to go home. I endorsed to pt once again with family bedside that he could potentially or be disabled, and patient once again noted that he does not want to stay. Pt has been noted to be neuro intact, without depressed affect or any SI/HI or depression. Pt signed out AMA w/ instructions to return for further workup EZRA. Disposition - Disposition Disposition: AGAINST MEDICAL ADVICE Disposition Time: 18:20 Condition: FAIR Forms: [facility] (Kiswahili) - Clinical Impression Clinical Impression: Atrial arrhythmia, Afib - Scribe Statement The provider has reviewed the documentation as recorded by the Dharaibangelica Cotto All medical record entries made by the Dharaibe were at my direction and personally dictated by me. I have reviewed the chart and agree that the record accurately reflects my personal performance of the history, physical exam, medical decision making, and the department course for this patient. I have also personally directed, reviewed, and agree with the discharge instructions and disposition.
[2018-01-04 17:00] LABS: BASO % 0.7 % (0.0-2.0); EOS # 0.2 K/uL (0.0-0.7); EOS % 3.7 % (0.0-4.0); HEMOGLOBIN 14.4 g/dL (12.0-18.0); LYMPH # 1.9 K/uL (1.0-4.3); LYMPH % 30.2 % (20.0-40.0); MEAN CELL VOLUME 91.5 fL (80.0-94.0); MEAN CORPUSCULAR HEMOGLOBIN 31.4 pg (27.0-31.0); MEAN CORPUSCULAR HGB CONC 34.3 g/dL (33.0-37.0); MONO # 0.5 K/uL (0.0-0.8); MONO % 7.4 % (0.0-10.0); NEUT # 3.7 K/uL (1.8-7.0); RBC 4.59 Mil/uL (4.40-5.90); RED CELL DISTRIBUTION WIDTH 13.3 % (11.5-14.5); WHITE BLOOD COUNT 6.4 K/uL (4.8-10.8)
[2018-01-04 17:33] LABS: ALB/GLOB RATIO 1.2 (1.0-2.1); ALBUMIN 3.8 g/dL (3.5-5.0); ALT/SGPT 28 U/L (21-72); AST/SGOT 31 U/L (17-59); BLOOD UREA NITROGEN 14 mg/dL (9-20); CALCIUM 9.4 mg/dl (8.6-10.4); GFR NON-AFRICAN AMERICAN > 60
--- NOTE | 2018-01-04 18:22 | RAD ---
Date of service: 01/04/2018 HISTORY: palpitaitons COMPARISON: Portable chest 01/16/2016. FINDINGS: LUNGS: No active pulmonary disease. PLEURA: No significant pleural effusion identified, no pneumothorax apparent. CARDIOVASCULAR: Normal. OSSEOUS STRUCTURES: No significant abnormalities. VISUALIZED UPPER ABDOMEN: Normal. OTHER FINDINGS: None. IMPRESSION: No interval acute cardiopulmonary disease appreciated.
[2018-01-04 18:43] VITALS: BP 126/79; RESP 18; TEMP 98.9; O2SAT 99
--- NOTE | 2018-01-05 17:43 | CARD ---
APPROVED REPORT Date of service: 01/04/2018 EKG Measurement Heart [id number] <Conclusion> Normal sinus rhythm Poor R wave progression Abnormal Electrocardiogram
== END 2018-01-04 18:43 | disposition left against medical advice (07) ==
LOC: C.ER 15:39
DX: I48.91 Unspecified atrial fibrillation (principal); I49.9 Cardiac arrhythmia, unspecified; E11.9 Type 2 diabetes mellitus without complications; I10 Essential (primary) hypertension

== ENCOUNTER 2018-01-11 05:21 | Observation (INO) | payer SELFPAY ==
[2018-01-11 05:21] VITALS: BMI 27.8
--- NOTE | 2018-01-11 05:39 | C.PDOC ---
History Of Present Illness 62 year old male with PMHx of Afib presents to the ED c/o palpitations. Patient reports he was in Afib last week when he presented to the ED, patient states symptoms started after going to the bathroom. Patient reports he was given cardizem while in the ED but is not able to say if he got out of AFib. Patient reports he went to [facility] his PMD Dr. Moncada who sent him to a central lab technician Dr. Meade who set him for a stress test tomorrow. Patient is currently taking plavix , aspirin, metformin. Time Seen by Provider: 01/11/18 05:31 Chief Complaint (Nursing): Palpitations History Per: Patient History/Exam Limitations: no limitations Onset/Duration Of Symptoms: Hrs Current Symptoms Are (Timing): Still Present Quality: "Pain" Recent travel outside of the [place]: No Additional History Per: Patient Past Medical History Reviewed: Historical Data, Nursing Documentation, Vital Signs Vital Signs: Last Vital Signs Temp 98.0 F 01/11/18 06:41 Pulse 92 H 01/11/18 06:41 Resp 15 01/11/18 06:41 BP 96/67 L 01/11/18 06:41 Pulse Ox 98 01/11/18 06:49 - Medical History PMH: Atrial Fibrillation, Bronchitis, Diabetes, Diverticulitis, HTN Denies: Chronic Kidney Disease Other Surgeries: left foot, right shoulder, lower back - [facility] Procedures COMPUTERIZED TOMOGRAPHY (CT SCAN) OF ABDOMINAL AORTA (02/09/17) COMPUTERIZED TOMOGRAPHY (CT SCAN) OF L LOW EXTREM ART (02/09/17) DILATE L PERONEAL ART W DRUG-ELUT INTRALUM, PERC (11/26/15) EXTIRPATION OF MATTER FROM L PERONEAL ART, PERC APPROACH (11/26/15) FLUOROSCOPY OF SUPERIOR VENA CAVA, GUIDANCE (02/09/17) INSERTION OF INFUSION DEV INTO R BASILIC VEIN, PERC APPROACH (02/09/17) INSERTION OF INFUSION DEV INTO SUP VENA CAVA, PERC APPROACH (02/09/17) ULTRASONOGRAPHY OF RIGHT UPPER EXTREMITY VEINS, GUIDANCE (02/09/17) ULTRASONOGRAPHY OF SUPERIOR VENA CAVA, GUIDANCE (11/26/15) Family History: States: [place] (Both mother and father.), CAD (Both Mother and father.) - Social History Hx Tobacco Use: No Hx Alcohol Use: Yes (3 beers daily) Hx Substance Use: No - Immunization History Hx Tetanus Toxoid Vaccination: No Hx Influenza Vaccination: Yes Hx Pneumococcal Vaccination: Yes Review Of Systems Constitutional: Negative for: Fever, Chills Eyes: Negative for: Vision Change ENT: Negative for: Ear Pain, Ear Discharge Cardiovascular: Positive for: Chest Pain, Palpitations Respiratory: Positive for: SOB with Excertion. Negative for: Cough, Shortness of Breath Gastrointestinal: Negative for: Nausea, Vomiting, Abdominal Pain, Constipation, Melena Genitourinary: Negative for: Dysuria Musculoskeletal: Negative for: Neck Pain, Back Pain Skin: Negative for: Rash Neurological: Negative for: Weakness, Numbness, Headache, Dizziness Psych: Negative for: Anxiety, Depression Physical Exam - Physical Exam Appears: In Acute Distress, Other (diaphoretic) Skin: Normal Color, Warm, Dry Head: Atraumatic, Normacephalic Eye(s): bilateral: Normal Inspection, PERRL, EOMI Ear(s): Bilateral: Normal Oral Mucosa: Moist Tongue: Normal Appearing Lips: Normal Appearing Teeth: Normal Dentition Gingiva: Normal Appearing Throat: Normal Neck: Normal ROM, Supple Chest: Symmetrical Cardiovascular: Rhythm Regular (tachycardic) Respiratory: Normal Breath Sounds, No Rales, No Rhonchi, No Wheezing Gastrointestinal/Abdominal: Soft, No Tenderness, No Guarding, No Rebound Male Genital: Normal Inspection Extremity: Normal ROM, No Tenderness, No Swelling Extremity: Bilateral: Atraumatic, No Pedal Edema, Normal Color And Temperature, Normal ROM Neurological/Psych: Oriented x3, Normal Speech, Normal Motor Gait: Steady ED Course And Treatment - Laboratory Results Result Diagrams: 01/11/18 05:52 01/11/18 05:52 ECG: Interpreted By Me, Viewed By Me ECG Rhythm: Sinus Rhythm (after cardizem given) Interpretation Of ECG: no ischemia. SD - 166. QRS - 86. Qt/Qtc - 352/398. PRT - 62 -5 56 Rate From EC (BPM) O2 Sat by Pulse Oximetry: 98 (ON RA) Pulse Ox Interpretation: Normal Critical Care Time - Critical Care Note Total Time (in mins): 30 Documented critical care: time excludes all time spent performing seperately billable procedures. Medical Decision Making Medical Decision Making: Plan: * Labs * CXR * EKG * Cardizem 20 mg IVP with aflutter at 179 to NSR at 77. Spoke with Dr. De Leon covering for Dr. Moncada, will admit the patient trop neg other labs unremarkable cxr reviewed adn unremarkable bp dropped a bit with cardizem/ will give a liter bolus. pt admitted. consulkt for Kiran Garcia after speaking to Dr. Duggan. Disposition - Disposition Disposition: HOSPITALIZED Disposition Time: 06:51 Condition: GUARDED - POA Core Measure Indicators: Chest Pain - Clinical Impression Clinical Impression: Afib, Atrial arrhythmia, HTN (hypertension), Palpitations, Diabetes mellitus - Scribe Statement The provider has reviewed the documentation as recorded by the Scribe Bartolome Camacho All medical record entries made by the Scribe were at my direction and personally dictated by me. I have reviewed the chart and agree that the record accurately reflects my personal performance of the history, physical exam, medical decision making, and the department course for this patient. I have also personally directed, reviewed, and agree with the discharge instructions and disposition.
[2018-01-11 05:56] LABS: BASO # 0.1 K/uL (0.0-0.2); EOS # 0.3 K/uL (0.0-0.7); EOS % 4.3 % (0.0-4.0); HEMOGLOBIN 14.9 g/dL (12.0-18.0); LYMPH # 1.7 K/uL (1.0-4.3); LYMPH % 25.4 % (20.0-40.0); MEAN CELL VOLUME 91.3 fL (80.0-94.0); MEAN CORPUSCULAR HEMOGLOBIN 32.1 pg (27.0-31.0); MEAN CORPUSCULAR HGB CONC 35.2 g/dL (33.0-37.0); MEAN PLATELET VOLUME 7.9 fL (7.2-11.7); MONO # 0.5 K/uL (0.0-0.8); MONO % 7.6 % (0.0-10.0); NEUT # 4.2 K/uL (1.8-7.0); NEUT % 61.7 % (50.0-75.0); NRBC % 0.1 % (0.0-2.0); RBC 4.63 Mil/uL (4.40-5.90); RED CELL DISTRIBUTION WIDTH 13.6 % (11.5-14.5); WHITE BLOOD COUNT 6.8 K/uL (4.8-10.8)
[2018-01-11 06:44] LABS: ALB/GLOB RATIO 1.3 (1.0-2.1); ALBUMIN 4.4 g/dL (3.5-5.0); ALT/SGPT 44 U/L (21-72); AST/SGOT 34 U/L (17-59); B-TYPE NATRIURETIC PEPTIDE 33.7 pg/mL (0-900); BLOOD UREA NITROGEN 12 mg/dL (9-20); CALCIUM 9.5 mg/dl (8.6-10.4); GFR NON-AFRICAN AMERICAN > 60; HDL CHOLESTEROL 59 mg/dL (30-70); LDL CHOLESTEROL 176 mg/dL (0-129)
[2018-01-11] MEDS ORDERED: Magnesium Sulfate 1 gm in D5W 1 GM/100 ML BAG IVPB ONE ×2 (07:12→08:00)
[2018-01-11] MEDS ORDERED: Dextrose 50% SYRINGE Inj (50 ml) IV PRN (07:53)
[2018-01-11] MEDS ORDERED: Glucagon Recombinant 1 mg Inj IM PRN (07:53)
[2018-01-11] MEDS ORDERED: (Novolog) Insulin Aspart, Recombinant 100 u/ml 10 ml vial SC ONE (09:08)
[2018-01-11] MEDS ORDERED: (Novolin R) Insulin Human Regular 100 units/ml vial ONE (09:09)
--- NOTE | 2018-01-11 09:51 | RAD ---
Date of service: 01/11/2018 PROCEDURE: CHEST RADIOGRAPH, 1 VIEW HISTORY: SOB COMPARISON: None available. FINDINGS: LUNGS: Bibasilar atelectasis left greater than right. Developing left lower lobe infiltrate could be excluded with followup radiographs. PLEURA: No pneumothorax or pleural fluid seen. CARDIOVASCULAR: Normal. OSSEOUS STRUCTURES: No significant abnormalities. VISUALIZED UPPER ABDOMEN: Normal. OTHER FINDINGS: None. IMPRESSION: Bibasilar atelectasis left greater than right. Developing left lower lobe infiltrate could be excluded with followup radiographs.
--- NOTE | 2018-01-11 09:57 | CP.PCM.HP ---
<Jeff Li - Last Filed: 01/11/18 16:34> History of Present Illness - History of Present Illness History of Present Illness: PGY 1 H&P for Hospitalist Dr. Morrow 62 yo M with PMHx of recent new onset atrial fibrillation, diabetes, hypertension, hyperlipidemia, peripheral vascular disease, and asthma who reports feeling palpitations which started approx 4:45AM this morning (01/11). Symptoms, including palpitations, chest discomfort, lightheaded & tunnel vision occurred while he was getting up from putting his shoes on. Symptoms resolved following arrival to ED and receiving 1 X cardizem mg in ED. Currently, patient denies chest pain, SOB, light headedness, palpitations, diarhea, constipation. Patient had similar symptoms 1 week prior that prompted him to the ED as well. During ED visit, patient was found to be in AFIB, and was given cardizem as well. Patient symtpoms had resolved prompting him to sign out AMA. w/ resolution of symptoms. At that time, patient signed out AMA.Patient reports he followed up with his PMD, Dr. Moncada and then was referred to metal tank builder, Dr. Meade who had scheduled a nuclear stress test for 01/12/18. PMD: Dr. 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 absent: Dyspnea on Exertion, Rapid Heart Rate, Syncope Additional comments: "chest discomfort" initially at ED arrival, no resolved palpitation initially at ED arrival, no resolved - Respiratory Respiratory: absent: Cough, Dyspnea - Gastrointestinal Gastrointestinal: absent: Abdominal Pain, Constipation, Diarrhea, Dyspepsia - Musculoskeletal Musculoskeletal: absent: Arthralgias, Muscle Weakness, Myalgias - Integumentary Integumentary: absent: Lesions, Non-Healing Lesions, Skin Ulcer - Neurological Neurological: absent: Abnormal Gait, Abnormal Hearing, Dizziness - Psychiatric Psychiatric: absent: Anxiety, Confusion Past Patient History - Infectious Disease Hx of Infectious Diseases: None - Past Medical History & Family History Past Medical History?: Yes - Past Social History Smoking Status: Former Smoker - CARDIAC Hx Atrial Fibrillation: Yes Hx Hypertension: Yes - PULMONARY Hx Bronchitis: Yes - NEUROLOGICAL Hx Neurological Disorder: No - HEENT Hx HEENT Problems: No - RENAL Hx Chronic Kidney Disease: No - ENDOCRINE/METABOLIC Hx Diabetes Mellitus Type 2: Yes - HEMATOLOGICAL/ONCOLOGICAL Hx Blood Disorders: No - INTEGUMENTARY Hx Dermatological Problems: Yes Other/Comment: HX: LEFT FOOT ULCER. HX: OSTEOMYELITIS - MUSCULOSKELETAL/RHEUMATOLOGICAL Hx Musculoskeletal Disorders: No Hx Falls: No - GASTROINTESTINAL Hx Diverticulitis: Yes - GENITOURINARY/GYNECOLOGICAL Hx Genitourinary Disorders: No - PSYCHIATRIC Hx Substance Use: No - SURGICAL HISTORY Hx Surgeries: Yes Hx Angiogram: Yes (ABDOMINAL) Hx Eye Surgery: Yes (R eye cataract/ Lasek) Hx Orthopedic Surgery: Yes (L 5th finger, R elbow) Other/Comment: L wrist /L hand ganglion cyst removed. HX: PICC LINE INSERTION - ANESTHESIA Hx Anesthesia: Yes Hx Anesthesia Reactions: No Hx Malignant Hyperthermia: No Meds Allergies/Adverse Reactions: Allergies Allergy/AdvReac Type Severity Reaction Status Date / Time Penicillins Allergy Verified 01/11/18 05:26 Physical Exam - Constitutional Appears: Well, Non-toxic, No Acute Distress - Head Exam Head Exam: ATRAUMATIC, NORMAL INSPECTION, NORMOCEPHALIC - Eye Exam Eye Exam: EOMI, Normal appearance - ENT Exam ENT Exam: Mucous Membranes Moist - Neck Exam Neck exam: Negative for: Thyromegaly - Respiratory Exam Respiratory Exam: Clear to Auscultation Bilateral, NORMAL BREATHING PATTERN. absent: Rales, Rhonchi, Wheezes - Cardiovascular Exam Cardiovascular Exam: +S1, +S2. absent: Irregular Rhythm, Systolic Murmur - GI/Abdominal Exam GI & Abdominal Exam: Normal Bowel Sounds, Soft. absent: Distended, Firm, Guarding - Extremities Exam Extremities exam: Negative for: calf tenderness, pedal edema Additional comments: Induration of about 0.5 cm on L lateral foot (chronic) from his PVD, no erythema - Neurological Exam Neurological exam: Alert, CN II-XII Intact, Oriented x3 - Psychiatric Exam Psychiatric exam: Normal Affect, Normal Mood - Skin Skin Exam: Dry, Intact, Normal Color, Warm Results - Vital Signs Recent Vital Signs: Last Vital Signs Temp 98.0 F 01/11/18 06:41 Pulse 70 01/11/18 07:56 Resp 18 01/11/18 07:56 BP 118/65 01/11/18 07:56 Pulse Ox 97 01/11/18 07:56 - Labs Result Diagrams: 01/11/18 05:52 01/11/18 05:52 Labs: Laboratory Results - last 24 hr 01/11/18 01/11/18 01/11/18 05:36 05:52 05:52 WBC 6.8 RBC 4.63 Hgb 14.9 Hct 42.3 MCV 91.3 MCH 32.1 H MCHC 35.2 RDW 13.6 Plt Count 283 MPV 7.9 Neut % (Auto) 61.7 Lymph % (Auto) 25.4 [place] % (Auto) 7.6 Eos % (Auto) 4.3 H Baso % (Auto) 1.0 Neut # (Auto) 4.2 Lymph # (Auto) 1.7 [place] # (Auto) 0.5 Eos # (Auto) 0.3 Baso # (Auto) 0.1 D-Dimer, Quantitative Sodium 142 Potassium 5.2 Chloride 100 Carbon Dioxide 27 Anion Gap 20 BUN 12 Creatinine 0.7 L Est GFR ( Amer) > 60 Est GFR (Non-Af Amer) > 60 POC Glucose (mg/dL) 226 H Random Glucose 247 H Calcium 9.5 Magnesium 1.2 L Total Bilirubin 0.7 AST 34 ALT 44 Alkaline Phosphatase 96 Troponin I < 0.0120 NT-Pro-B Natriuret Pep 33.7 Total Protein 7.9 Albumin 4.4 Globulin 3.5 Albumin/Globulin Ratio 1.3 Triglycerides 267 H Cholesterol 287 H LDL Cholesterol Direct 176 H HDL Cholesterol 59 Alcohol, Quantitative 01/11/18 01/11/18 01/11/18 07:18 08:11 08:52 WBC RBC Hgb Hct MCV MCH MCHC RDW Plt Count MPV Neut % (Auto) Lymph % (Auto) [place] % (Auto) Eos % (Auto) Baso % (Auto) Neut # (Auto) Lymph # (Auto) [place] # (Auto) Eos # (Auto) Baso # (Auto) D-Dimer, Quantitative < 200 Sodium Potassium Chloride Carbon Dioxide Anion Gap BUN Creatinine Est GFR ( Amer) Est GFR (Non-Af Amer) POC Glucose (mg/dL) 230 H Random Glucose Calcium Magnesium Total Bilirubin AST ALT Alkaline Phosphatase Troponin I NT-Pro-B Natriuret Pep Total Protein Albumin Globulin Albumin/Globulin Ratio Triglycerides Cholesterol LDL Cholesterol Direct HDL Cholesterol Alcohol, Quantitative < 10 Assessment & Plan - Assessment and Plan (Free Text) Assessment: 1.) Palpitations - Likely Paroxysmal Afib Current Managment: - admit to telemetry - Initial trops X2 negative, f/u 3rd trop @4pm - TSH (01/04): 0.74 - F/u cardio Dr. Beck (covering Dr. 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 Developing left lower lobe infiltrate could be excluded with followup radiographs. Patient afebrile reports no SOB, will continue to monitor 2.) Hyperlipidemia - TGs 267, Cholestorol 287, LDL 176 - Crestor 10 mg PO daily 3) ?Alcohol abuse - pt was vague with his ETOH consumption - serum ETOH < 10 - CIWA protocol 4) History of HTN - Continue home medication: Enalipril 10mg PO daily - F/u cardio recs 5) History of DM - Blood sugars in 200s - hold home Janumet 1000mg/50mg PO BID - ISS 6) History of PVD - Continue home medication: ASA 81 mg po daily Plavix 75 mg po daily 7) Prophylaxis - DVT prophylaxis - on therapeutic enoxaparin SC - 100g Q12 2/2 to Afib - GI prophylaxis - pepcid 20mg PO BID <Ion Morrow - Last Filed: 01/12/18 09:51> Results - Vital Signs Recent Vital Signs: Last Vital Signs Temp 97.8 F 01/12/18 07:44 Pulse 65 01/12/18 08:05 Resp 20 01/12/18 07:44 BP 165/86 H 01/12/18 07:44 Pulse Ox 99 01/12/18 08:05 - Labs Result Diagrams: 01/12/18 07:46 01/12/18 07:46 Labs: Laboratory Results - last 24 hr 01/11/18 01/11/18 01/11/18 10:00 12:05 17:42 WBC RBC Hgb Hct MCV MCH MCHC RDW Plt Count MPV Neut % (Auto) Lymph % (Auto) [place] % (Auto) Eos % (Auto) Baso % (Auto) Neut # (Auto) Lymph # (Auto) [place] # (Auto) Eos # (Auto) Baso # (Auto) Sodium Potassium Chloride Carbon Dioxide Anion Gap BUN Creatinine Est GFR ( Amer) Est GFR (Non-Af Amer) POC Glucose (mg/dL) 255 H Random Glucose Hemoglobin A1c Calcium Phosphorus Magnesium Total Bilirubin AST ALT Alkaline Phosphatase Total Creatine Kinase 78 73 CK-MB (Mass) 1.51 1.30 Troponin I < 0.0120 < 0.0120 Total Protein Albumin Globulin Albumin/Globulin Ratio 01/11/18 01/11/18 01/11/18 18:33 19:18 21:11 WBC RBC Hgb Hct MCV MCH MCHC RDW Plt Count MPV Neut % (Auto) Lymph % (Auto) [place] % (Auto) Eos % (Auto) Baso % (Auto) Neut # (Auto) Lymph # (Auto) [place] # (Auto) Eos # (Auto) Baso # (Auto) Sodium Potassium Chloride Carbon Dioxide Anion Gap BUN Creatinine Est GFR ( Amer) Est GFR (Non-Af Amer) POC Glucose (mg/dL) 204 H 170 H Random Glucose Hemoglobin A1c Calcium Phosphorus Magnesium 1.4 L Total Bilirubin AST ALT Alkaline Phosphatase Total Creatine Kinase CK-MB (Mass) Troponin I Total Protein Albumin Globulin Albumin/Globulin Ratio 01/12/18 01/12/18 01/12/18 06:22 07:46 07:46 WBC 6.1 RBC 4.05 L Hgb 13.0 Hct 36.8 MCV 90.9 MCH 32.1 H MCHC 35.3 RDW 13.2 Plt Count 255 MPV 7.8 Neut % (Auto) 63.4 Lymph % (Auto) 24.9 [place] % (Auto) 7.2 Eos % (Auto) 3.7 Baso % (Auto) 0.8 Neut # (Auto) 3.8 Lymph # (Auto) 1.5 [place] # (Auto) 0.4 Eos # (Auto) 0.2 Baso # (Auto) 0.0 Sodium 139 Potassium 4.3 Chloride 103 Carbon Dioxide 24 Anion Gap 16 BUN 11 Creatinine 0.6 L Est GFR ( Amer) > 60 Est GFR (Non-Af Amer) > 60 POC Glucose (mg/dL) 209 H Random Glucose 207 H Hemoglobin A1c Calcium 9.2 Phosphorus 3.2 Magnesium 1.4 L Total Bilirubin 0.6 AST 32 ALT 39 Alkaline Phosphatase 81 Total Creatine Kinase CK-MB (Mass) Troponin I Total Protein 6.7 Albumin 3.7 Globulin 2.9 Albumin/Globulin Ratio 1.3 01/12/18 07:46 WBC RBC Hgb Hct MCV MCH MCHC RDW Plt Count MPV Neut % (Auto) Lymph % (Auto) [place] % (Auto) Eos % (Auto) Baso % (Auto) Neut # (Auto) Lymph # (Auto) [place] # (Auto) Eos # (Auto) Baso # (Auto) Sodium Potassium Chloride Carbon Dioxide Anion Gap BUN Creatinine Est GFR ( Amer) Est GFR (Non-Af Amer) POC Glucose (mg/dL) Random Glucose Hemoglobin A1c 9.8 H D Calcium Phosphorus Magnesium Total Bilirubin AST ALT Alkaline Phosphatase Total Creatine Kinase CK-MB (Mass) Troponin I Total Protein Albumin Globulin Albumin/Globulin Ratio Attending/Attestation - Attestation I have personally seen and examined this patient.: Yes I have fully participated in the care of the patient.: Yes I have reviewed all pertinent clinical information: Yes Notes (Text): Patient was seen and examined by me. history taken from the patient. Assessment and the plan discussed with the resident in detail and I agree with the documentation We will follow with DR Beck
[2018-01-11 10:43] LABS: CK-MB 1.51 ng/mL (0.0-3.38)
[2018-01-11] MEDS ORDERED: Enoxaparin 30 mg Syringe SC SCH (12:15)
[2018-01-11] MEDS: (Novolog) Insulin Aspart, Recombinant 100 u/ml 10 ml vial SC SCH ×3 (12:45→22:58)
[2018-01-11 16:17] VITALS: RESP 20
--- NOTE | 2018-01-11 18:41 | CP.PCM.CON ---
<Cheryl Chaves - Last Filed: 01/11/18 18:29> History of Present Illness - History of Present Illness History of Present Illness: Cardiology consult note ( Dr. Beck's service) CC: Atrial fibrillation with RVR HPI: Patient is a 62 year old AA male with past medical history of DM, hypercholesterolemia, who presents to the ED with palpitations and dizziness. Patient reports that he had the same presentation last week, which he called the ambulance for. As per patient he was given cardizem on route to the hospital. Upon arrival to the ED, patient was recommended for cardiac work-up, however, he refused and left against medical advice. Patient states that he woke this morning without any symptoms, however, as he was about to leave the house for work, he started to experience palpitations and lightheadedness. Patient had to sit down in order to prevent any syncope episode. PMD: Dr. Moncada PMHx: HTN diagnosed at a teenager, DM, diabetic neuropathy PSHx: Right elbow, left shoulder surgical repair and left foot MRSA infection ( Debridement), left leg stent placement 2/2 PAD FHx: - Mother, [place] at age 60 and at age 93 - Father, HTN, in his 80s - Elder sister: Type II DM - Elder brother: Cancer Medications: Janument 50-1,000mg PO BID, Plavix 75mg PO daily, ASA 81mg PO daily , and Vasotec 10mg PO daily Allergies: Penicillin; anaphylaxis Social Hx: Lives with family. Works for [employer]. Admits to 30 years hx of tobacco use ( unknown amount of cigarettes per day), Beer ( socially) and denies hx of illicit drug use Review of Systems - Constitutional Constitutional: absent: Chills, Fatigue, Headache - EENT Eyes: absent: Change in Vision Ears: Dizziness - Cardiovascular Cardiovascular: Lightheadedness, Palpitations. absent: Chest Pain, Chest Pain at Rest, Chest Pain with Activity, Dyspnea, Dyspnea on Exertion, Syncope - Respiratory Respiratory: Dyspnea - Gastrointestinal Gastrointestinal: absent: Abdominal Pain, Hematemesis, Hematochezia, Nausea, Vomiting - Neurological Neurological: Dizziness. absent: Numbness, Headaches, Syncope, Tingling, Tremor , Weakness - Endocrine Endocrine: Fatigue, Palpitations Past Patient History - Infectious Disease Hx of Infectious Diseases: None - Past Medical History & Family History Past Medical History?: Yes - Past Social History Smoking Status: Former Smoker - CARDIAC Hx Atrial Fibrillation: Yes Hx Hypertension: Yes - PULMONARY Hx Bronchitis: Yes - NEUROLOGICAL Hx Neurological Disorder: No - HEENT Hx HEENT Problems: No - RENAL Hx Chronic Kidney Disease: No - ENDOCRINE/METABOLIC Hx Diabetes Mellitus Type 2: Yes - HEMATOLOGICAL/ONCOLOGICAL Hx Blood Disorders: No - INTEGUMENTARY Hx Dermatological Problems: Yes Other/Comment: HX: LEFT FOOT ULCER. HX: OSTEOMYELITIS - MUSCULOSKELETAL/RHEUMATOLOGICAL Hx Musculoskeletal Disorders: No Hx Falls: No - GASTROINTESTINAL Hx Diverticulitis: Yes - GENITOURINARY/GYNECOLOGICAL Hx Genitourinary Disorders: No - PSYCHIATRIC Hx Substance Use: No - SURGICAL HISTORY Hx Surgeries: Yes Hx Angiogram: Yes (ABDOMINAL) Hx Eye Surgery: Yes (R eye cataract/ Lasek) Hx Orthopedic Surgery: Yes (L 5th finger, R elbow) Other/Comment: L wrist /L hand ganglion cyst removed. HX: PICC LINE INSERTION - ANESTHESIA Hx Anesthesia: Yes Hx Anesthesia Reactions: No Hx Malignant Hyperthermia: No Meds Allergies/Adverse Reactions: Allergies Allergy/AdvReac Type Severity Reaction Status Date / Time Penicillins Allergy Verified 01/11/18 05:26 - Medications Medications: Current Medications Aspirin (Ecotrin) 81 mg PO DAILY [facility] Clopidogrel Bisulfate (Plavix) 75 mg PO DAILY [facility] Dextrose (Dextrose 50% Inj) 0 ml IV STAT PRN; Protocol PRN Reason: Hypoglycemia Protocol Dextrose (Glutose 15) 0 gm PO ONCE PRN; Protocol PRN Reason: Hypoglycemia Protocol Enalapril Maleate (Vasotec) 10 mg PO DAILY [facility] Enoxaparin Sodium (Lovenox) 100 mg SC Q12 [facility] Famotidine (Pepcid) 20 mg PO BID [facility] Glucagon (Glucagen Diagnostic Kit) 0 mg IM STAT PRN; Protocol PRN Reason: Hypoglycemia Protocol Dextrose (Dextrose 5% In Water 1000 Ml) 1,000 mls @ 0 mls/hr IV .Q0M PRN; Protocol; Per Protocol PRN Reason: Hypoglycemia Protocol Insulin Aspart (Novolog) 0 unit SC ACHS [facility] PRN Reason: Protocol Last Admin: 01/11/18 12:45 Dose: 4 units Rosuvastatin Calcium (Crestor) 10 mg PO HS [facility] Physical Exam - Constitutional Appears: No Acute Distress - Head Exam Head Exam: ATRAUMATIC, NORMAL INSPECTION - Eye Exam Eye Exam: EOMI, Normal appearance - ENT Exam ENT Exam: Mucous Membranes Moist - Respiratory Exam Respiratory Exam: Clear to Auscultation Bilateral, NORMAL BREATHING PATTERN. absent: Chest Wall Tenderness, Prolonged Expiratory Phase, Rales, Rhonchi, Wheezes, Respiratory Distress - Cardiovascular Exam Cardiovascular Exam: REGULAR RHYTHM, +S1, +S2 Additional comments: Seen after cardizem 20mg IV stat - GI/Abdominal Exam GI & Abdominal Exam: Normal Bowel Sounds, Soft. absent: Diminished Bowel Sounds , Distended, Firm, Guarding, Hernia, Hyperactive Bowel Sounds, Hypoactive Bowel Sounds, Mass, Organomegaly, Pulsatile Mass, Rebound, Rigid, Tenderness - Extremities Exam Extremities exam: Positive for: normal inspection. Negative for: calf tenderness, pedal edema - Neurological Exam Neurological exam: Alert, Oriented x3 - Psychiatric Exam Psychiatric exam: Normal Affect - Skin Skin Exam: Normal Color Results - Vital Signs Recent Vital Signs: Last Vital Signs Temp 97.6 F 01/11/18 15:00 Pulse 74 01/11/18 15:00 Resp 20 01/11/18 15:00 BP 126/80 01/11/18 15:00 Pulse Ox 100 01/11/18 15:00 - Labs Result Diagrams: 01/11/18 05:52 01/11/18 05:52 Labs: Laboratory Results - last 24 hr 01/11/18 01/11/18 01/11/18 05:36 05:52 05:52 WBC 6.8 RBC 4.63 Hgb 14.9 Hct 42.3 MCV 91.3 MCH 32.1 H MCHC 35.2 RDW 13.6 Plt Count 283 MPV 7.9 Neut % (Auto) 61.7 Lymph % (Auto) 25.4 Wake % (Auto) 7.6 Eos % (Auto) 4.3 H Baso % (Auto) 1.0 Neut # (Auto) 4.2 Lymph # (Auto) 1.7 Wake # (Auto) 0.5 Eos # (Auto) 0.3 Baso # (Auto) 0.1 D-Dimer, Quantitative Sodium 142 Potassium 5.2 Chloride 100 Carbon Dioxide 27 Anion Gap 20 BUN 12 Creatinine 0.7 L Est GFR ( Amer) > 60 Est GFR (Non-Af Amer) > 60 POC Glucose (mg/dL) 226 H Random Glucose 247 H Calcium 9.5 Magnesium 1.2 L Total Bilirubin 0.7 AST 34 ALT 44 Alkaline Phosphatase 96 Total Creatine Kinase CK-MB (Mass) Troponin I < 0.0120 NT-Pro-B Natriuret Pep 33.7 Total Protein 7.9 Albumin 4.4 Globulin 3.5 Albumin/Globulin Ratio 1.3 Triglycerides 267 H Cholesterol 287 H LDL Cholesterol Direct 176 H HDL Cholesterol 59 Alcohol, Quantitative 01/11/18 01/11/18 01/11/18 07:18 08:11 08:52 WBC RBC Hgb Hct MCV MCH MCHC RDW Plt Count MPV Neut % (Auto) Lymph % (Auto) Wake % (Auto) Eos % (Auto) Baso % (Auto) Neut # (Auto) Lymph # (Auto) Wake # (Auto) Eos # (Auto) Baso # (Auto) D-Dimer, Quantitative < 200 Sodium Potassium Chloride Carbon Dioxide Anion Gap BUN Creatinine Est GFR ( Amer) Est GFR (Non-Af Amer) POC Glucose (mg/dL) 230 H Random Glucose Calcium Magnesium Total Bilirubin AST ALT Alkaline Phosphatase Total Creatine Kinase CK-MB (Mass) Troponin I NT-Pro-B Natriuret Pep Total Protein Albumin Globulin Albumin/Globulin Ratio Triglycerides Cholesterol LDL Cholesterol Direct HDL Cholesterol Alcohol, Quantitative < 10 01/11/18 01/11/18 01/11/18 10:00 12:05 17:42 WBC RBC Hgb Hct MCV MCH MCHC RDW Plt Count MPV Neut % (Auto) Lymph % (Auto) Wake % (Auto) Eos % (Auto) Baso % (Auto) Neut # (Auto) Lymph # (Auto) Wake # (Auto) Eos # (Auto) Baso # (Auto) D-Dimer, Quantitative Sodium Potassium Chloride Carbon Dioxide Anion Gap BUN Creatinine Est GFR ( Amer) Est GFR (Non-Af Amer) POC Glucose (mg/dL) 255 H Random Glucose Calcium Magnesium Total Bilirubin AST ALT Alkaline Phosphatase Total Creatine Kinase 78 73 CK-MB (Mass) 1.51 1.30 Troponin I < 0.0120 < 0.0120 NT-Pro-B Natriuret Pep Total Protein Albumin Globulin Albumin/Globulin Ratio Triglycerides Cholesterol LDL Cholesterol Direct HDL Cholesterol Alcohol, Quantitative Assessment & Plan (1) Atrial fibrillation with rapid ventricular response Assessment and Plan: Converted to NSR after cardizem 20mg IV once in the ED Troponin negative X3 TSH 3rd generation: 0.75, WNL Serum alcohol:< 10 F/u echocardiogram Will add medication as needed if patient converts to NSR to A.fib Status: Acute (2) HTN (hypertension) Assessment and Plan: Continue home medication: * Vasotec 10mg PO daily Status: Acute (3) Diabetes mellitus Assessment and Plan: Accucheck ISS- Medium dose F/u HgbA1C Lipid panel: TGL: 267, Chol:287, LDL:176 and HDL:59 * Crestor 10mg PO HS Status: Acute (4) History of peripheral arterial disease Assessment and Plan: Hx of left leg stent * ASA 81mg PO daily * Plavix 75mg PO daily Status: Acute (5) Prophylactic measure Assessment and Plan: DVT: Lovenox 100mg SC Q12H GI: Pepcid 20mg PO BID Currently in NSR, will continue to monitor for episodes of atrial fibrillation and start medication as indicated All plans and management discussed with Dr. Beck Status: Acute <John Beck - Last Filed: 01/11/18 22:29> Meds - Medications Medications: Current Medications Aspirin (Ecotrin) 81 mg PO DAILY [facility] Clopidogrel Bisulfate (Plavix) 75 mg PO DAILY [facility] Dextrose (Dextrose 50% Inj) 0 ml IV STAT PRN; Protocol PRN Reason: Hypoglycemia Protocol Dextrose (Glutose 15) 0 gm PO ONCE PRN; Protocol PRN Reason: Hypoglycemia Protocol Enalapril Maleate (Vasotec) 10 mg PO DAILY [facility] Enoxaparin Sodium (Lovenox) 100 mg SC Q12 [facility] Famotidine (Pepcid) 20 mg PO BID [facility] Glucagon (Glucagen Diagnostic Kit) 0 mg IM STAT PRN; Protocol PRN Reason: Hypoglycemia Protocol Dextrose (Dextrose 5% In Water 1000 Ml) 1,000 mls @ 0 mls/hr IV .Q0M PRN; Protocol; Per Protocol PRN Reason: Hypoglycemia Protocol Insulin Aspart (Novolog) 0 unit SC ACHS [facility] PRN Reason: Protocol Last Admin: 01/11/18 19:34 Dose: 3 units Rosuvastatin Calcium (Crestor) 10 mg PO HS [facility] Results - Vital Signs Recent Vital Signs: Last Vital Signs Temp 97.6 F 01/11/18 15:00 Pulse 72 01/11/18 18:22 Resp 20 01/11/18 15:00 BP 126/80 01/11/18 15:00 Pulse Ox 100 01/11/18 15:00 - Labs Result Diagrams: 01/11/18 05:52 01/11/18 05:52 Labs: Laboratory Results - last 24 hr 01/11/18 01/11/18 01/11/18 05:36 05:52 05:52 WBC 6.8 RBC 4.63 Hgb 14.9 Hct 42.3 MCV 91.3 MCH 32.1 H MCHC 35.2 RDW 13.6 Plt Count 283 MPV 7.9 Neut % (Auto) 61.7 Lymph % (Auto) 25.4 Wake % (Auto) 7.6 Eos % (Auto) 4.3 H Baso % (Auto) 1.0 Neut # (Auto) 4.2 Lymph # (Auto) 1.7 Wake # (Auto) 0.5 Eos # (Auto) 0.3 Baso # (Auto) 0.1 D-Dimer, Quantitative Sodium 142 Potassium 5.2 Chloride 100 Carbon Dioxide 27 Anion Gap 20 BUN 12 Creatinine 0.7 L Est GFR ( Amer) > 60 Est GFR (Non-Af Amer) > 60 POC Glucose (mg/dL) 226 H Random Glucose 247 H Calcium 9.5 Magnesium 1.2 L Total Bilirubin 0.7 AST 34 ALT 44 Alkaline Phosphatase 96 Total Creatine Kinase CK-MB (Mass) Troponin I < 0.0120 NT-Pro-B Natriuret Pep 33.7 Total Protein 7.9 Albumin 4.4 Globulin 3.5 Albumin/Globulin Ratio 1.3 Triglycerides 267 H Cholesterol 287 H LDL Cholesterol Direct 176 H HDL Cholesterol 59 Alcohol, Quantitative 01/11/18 01/11/18 01/11/18 07:18 08:11 08:52 WBC RBC Hgb Hct MCV MCH MCHC RDW Plt Count MPV Neut % (Auto) Lymph % (Auto) Wake % (Auto) Eos % (Auto) Baso % (Auto) Neut # (Auto) Lymph # (Auto) Wake # (Auto) Eos # (Auto) Baso # (Auto) D-Dimer, Quantitative < 200 Sodium Potassium Chloride Carbon Dioxide Anion Gap BUN Creatinine Est GFR ( Amer) Est GFR (Non-Af Amer) POC Glucose (mg/dL) 230 H Random Glucose Calcium Magnesium Total Bilirubin AST ALT Alkaline Phosphatase Total Creatine Kinase CK-MB (Mass) Troponin I NT-Pro-B Natriuret Pep Total Protein Albumin Globulin Albumin/Globulin Ratio Triglycerides Cholesterol LDL Cholesterol Direct HDL Cholesterol Alcohol, Quantitative < 10 09/11/18 09/11/18 09/11/18 10:00 12:05 17:42 WBC RBC Hgb Hct MCV MCH MCHC RDW Plt Count MPV Neut % (Auto) Lymph % (Auto) Wake % (Auto) Eos % (Auto) Baso % (Auto) Neut # (Auto) Lymph # (Auto) Wake # (Auto) Eos # (Auto) Baso # (Auto) D-Dimer, Quantitative Sodium Potassium Chloride Carbon Dioxide Anion Gap BUN Creatinine Est GFR ( Amer) Est GFR (Non-Af Amer) POC Glucose (mg/dL) 255 H Random Glucose Calcium Magnesium Total Bilirubin AST ALT Alkaline Phosphatase Total Creatine Kinase 78 73 CK-MB (Mass) 1.51 1.30 Troponin I < 0.0120 < 0.0120 NT-Pro-B Natriuret Pep Total Protein Albumin Globulin Albumin/Globulin Ratio Triglycerides Cholesterol LDL Cholesterol Direct HDL Cholesterol Alcohol, Quantitative 01/11/18 01/11/18 01/11/18 18:33 19:18 21:11 WBC RBC Hgb Hct MCV MCH MCHC RDW Plt Count MPV Neut % (Auto) Lymph % (Auto) Wake % (Auto) Eos % (Auto) Baso % (Auto) Neut # (Auto) Lymph # (Auto) Wake # (Auto) Eos # (Auto) Baso # (Auto) D-Dimer, Quantitative Sodium Potassium Chloride Carbon Dioxide Anion Gap BUN Creatinine Est GFR ( Amer) Est GFR (Non-Af Amer) POC Glucose (mg/dL) 204 H 170 H Random Glucose Calcium Magnesium 1.4 L Total Bilirubin AST ALT Alkaline Phosphatase Total Creatine Kinase CK-MB (Mass) Troponin I NT-Pro-B Natriuret Pep Total Protein Albumin Globulin Albumin/Globulin Ratio Triglycerides Cholesterol LDL Cholesterol Direct HDL Cholesterol Alcohol, Quantitative Assessment & Plan - Assessment and Plan (Free Text) Assessment: Patient seen and evaluated personally by oh Plan of care d/w the medical/surgery registered nurse and as documented
--- NOTE | 2018-01-11 20:08 | CARD ---
APPROVED REPORT Date of service: 01/11/2018 EKG Measurement Heart [id number] <Conclusion> Normal sinus rhythm Inferior infarct, age undetermined Abnormal ECG
[2018-01-11] MEDS: Enoxaparin 100 mg Syringe SC SCH (22:57)
[2018-01-12] MEDS: Magnesium Sulfate 1 gm in D5W 1 GM/100 ML BAG IVPB ONE ×2 (01:40→01:51)
[2018-01-12 08:12] LABS: BASO % 0.8 % (0.0-2.0); EOS # 0.2 K/uL (0.0-0.7); EOS % 3.7 % (0.0-4.0); LYMPH # 1.5 K/uL (1.0-4.3); LYMPH % 24.9 % (20.0-40.0); MEAN CELL VOLUME 90.9 fL (80.0-94.0); MEAN CORPUSCULAR HEMOGLOBIN 32.1 pg (27.0-31.0); MEAN CORPUSCULAR HGB CONC 35.3 g/dL (33.0-37.0); MEAN PLATELET VOLUME 7.8 fL (7.2-11.7); MONO # 0.4 K/uL (0.0-0.8); MONO % 7.2 % (0.0-10.0); NEUT # 3.8 K/uL (1.8-7.0); NEUT % 63.4 % (50.0-75.0); RBC 4.05 Mil/uL (4.40-5.90); RED CELL DISTRIBUTION WIDTH 13.2 % (11.5-14.5); WHITE BLOOD COUNT 6.1 K/uL (4.8-10.8)
[2018-01-12 08:26] LABS: ALB/GLOB RATIO 1.3 (1.0-2.1); ALBUMIN 3.7 g/dL (3.5-5.0); ALT/SGPT 39 U/L (21-72); AST/SGOT 32 U/L (17-59); BLOOD UREA NITROGEN 11 mg/dL (9-20); CALCIUM 9.2 mg/dl (8.6-10.4); GFR NON-AFRICAN AMERICAN > 60
[2018-01-12] MEDS: (Novolog) Insulin Aspart, Recombinant 100 u/ml 10 ml vial SC SCH ×4 (08:41→21:42)
[2018-01-12] MEDS: Enoxaparin 100 mg Syringe SC SCH ×2 (10:09→22:16)
--- NOTE | 2018-01-12 12:56 | CARD ---
APPROVED REPORT Date of service: 01/11/2018 EKG Measurement Heart [id number] <Conclusion> Normal sinus rhythm Nonspecific T wave abnormality Abnormal ECG
--- NOTE | 2018-01-12 12:56 | CARD ---
APPROVED REPORT Date of service: 01/11/2018 EKG Measurement Heart [id number] <Conclusion> Normal sinus rhythm Possible Inferior infarct, age undetermined Abnormal ECG
[2018-01-12] MEDS ORDERED: Magnesium Sulfate 1 gm in D5W 1 GM/100 ML BAG IVPB ONE (12:58)
--- NOTE | 2018-01-12 14:53 | CP.PCM.PN ---
<Gregor Wise - Last Filed: 01/12/18 14:58> Subjective - Date & Time of Evaluation Date of Evaluation: 01/12/18 Time of Evaluation: 14:49 - Subjective Subjective: PGY-[address] Morrow Patient was seen and examined today at bedside. Per nursing, no acute changes overnight. Patient states that he was supposed to have a nuclear stress test today in outpatient. Last bowel movement was yesterday and normal. He reports that he has been urinating more frequently, about every 30 minutes. He also endorses that the urine volume is increased. Denies headache, chest pain, shortness of breath, nausea, vomiting, diarrhea, dizziness, lightheaded, palpitations, vision changes. Objective - Vital Signs/Intake and Output Vital Signs (last 24 hours): Temp Pulse Resp BP Pulse Ox 97.8 F 78 20 158/86 H 99 01/12/18 07:44 01/12/18 12:36 01/12/18 07:44 01/12/18 10:07 01/12/18 12:00 - Medications Medications: Current Medications Aspirin (Ecotrin) 81 mg PO DAILY [facility] Last Admin: 01/12/18 10:07 Dose: 81 mg Clopidogrel Bisulfate (Plavix) 75 mg PO DAILY [facility] Last Admin: 01/12/18 10:04 Dose: 75 mg Dextrose (Dextrose 50% Inj) 0 ml IV STAT PRN; Protocol PRN Reason: Hypoglycemia Protocol Dextrose (Glutose 15) 0 gm PO ONCE PRN; Protocol PRN Reason: Hypoglycemia Protocol Enalapril Maleate (Vasotec) 10 mg PO DAILY [facility] Last Admin: 01/12/18 10:07 Dose: 10 mg Enoxaparin Sodium (Lovenox) 100 mg SC Q12 [facility] Last Admin: 01/12/18 10:09 Dose: 100 mg Famotidine (Pepcid) 20 mg PO BID [facility] Last Admin: 01/12/18 10:06 Dose: 20 mg Glucagon (Glucagen Diagnostic Kit) 0 mg IM STAT PRN; Protocol PRN Reason: Hypoglycemia Protocol Dextrose (Dextrose 5% In Water 1000 Ml) 1,000 mls @ 0 mls/hr IV .Q0M PRN; Protocol; Per Protocol PRN Reason: Hypoglycemia Protocol Insulin Aspart (Novolog) 0 unit SC ACHS [facility] PRN Reason: Protocol Last Admin: 01/12/18 13:21 Dose: 3 units Rosuvastatin Calcium (Crestor) 10 mg PO HS [facility] Last Admin: 01/11/18 22:57 Dose: 10 mg - Labs Labs: 01/12/18 07:46 01/12/18 07:46 - Constitutional Appears: Well, Non-toxic, No Acute Distress - Head Exam Head Exam: ATRAUMATIC, NORMAL INSPECTION - Eye Exam Eye Exam: EOMI, Normal appearance - ENT Exam ENT Exam: Mucous Membranes Moist - Respiratory Exam Respiratory Exam: Clear to Ausculation Bilateral, NORMAL BREATHING PATTERN. absent: Rales, Rhonchi, Wheezes - Cardiovascular Exam Cardiovascular Exam: REGULAR RHYTHM, +S1, +S2. absent: Murmur - GI/Abdominal Exam GI & Abdominal Exam: Soft, Normal Bowel Sounds. absent: Tenderness - Extremities Exam Extremities Exam: Full ROM, Normal Inspection. absent: Pedal Edema, Tenderness - Neurological Exam Neurological Exam: Alert, Awake, CN II-XII Intact, Normal Gait, Oriented x3 - Skin Skin Exam: Dry, Intact, Normal Color, Warm Assessment and Plan - Assessment and Plan (Free Text) Assessment: 1.) Palpitations - Likely Paroxysmal Afib Current Managment: - admit to telemetry - Trops X3 - TSH (01/04): 0.74 - F/u cardio Dr. Beck (covering Dr. Meade) recs - CAD w/ hx left leg stent - ASA 81 daily , Plavix 75 PO dialy - Patient to go for nuclear stress test tomorrow morning, being kept NPO - f/u ECHO - Magagnesium 1.4, repleated 1gm Mg2+ - [id number] score of 3 - therapeutic enoxaparin SC - 100g Q12 ED course: - Patient had reported symptoms on initial visit, resolved w/ Cardizem 20mg IV X1 - EKG following Cardizem: NSR @ 77, QTC 398, Age indeterminate old inferior infarct - CXR: Bibasilar atelectasis left greater than right. Developing left lower lobe infiltrate could be excluded with followup radiographs. Patient afebrile reports no SOB, will continue to monitor 2.) Hyperlipidemia - TGs 267, Cholestorol 287, LDL 176 - Crestor 10 mg PO daily 3) Alcohol abuse - pt was vague with his ETOH consumption - serum ETOH < 10 - [facility] protocol 4) History of HTN - Continue home medication: Enalipril 10mg PO daily - F/u cardio recs 5) History of DM - Blood sugars in 200s - hold home Janumet 1000mg/50mg PO BID - ISS 6) History of PVD - Continue home medication: ASA 81 mg po daily Plavix 75 mg po daily 7) Prophylaxis - DVT prophylaxis - on therapeutic enoxaparin SC - 100g Q12 2/2 to Afib - GI prophylaxis - pepcid 20mg PO BID Assessment/Plan Discussed with Dr. Odalys Wise, PGY-1 <Ion Morrow - Last Filed: 01/13/18 19:14> Objective - Vital Signs/Intake and Output Vital Signs (last 24 hours): Temp Pulse Resp BP Pulse Ox 98 F 71 20 137/78 97 01/13/18 16:00 01/13/18 16:00 01/13/18 16:00 01/13/18 16:00 01/13/18 16:00 - Labs Labs: 01/13/18 07:47 01/13/18 07:47 Attending/Attestation - Attestation I have personally seen and examined this patient.: Yes I have fully participated in the care of the patient.: Yes I have reviewed all pertinent clinical information, including history, physical exam and plan: Yes Notes (Text): Seen and examined by me. patient is going for stress test tomorrow. He is in NSR. patient will follow with his political director after discharge We will continue his LOvenox for now. we will follow up with DR Beck d/w resident and I agree with the documentation of the assessment and the plan
--- NOTE | 2018-01-12 15:29 | CP.PCM.PN ---
<Cheryl Chaves Cinthya - Last Filed: 01/12/18 15:26> Subjective - Date & Time of Evaluation Date of Evaluation: 01/12/18 Time of Evaluation: 11:35 - Subjective Subjective: Cardiology progress note ( Dr. Beck's service) Patient was seen and examined at bedside. Patient reports that improving symptoms. Patient denies chest pain, palpitations, SOB, dizziness and lightheadedness. Patient is ambulating without any cardiac symptoms. Objective - Vital Signs/Intake and Output Vital Signs (last 24 hours): Temp Pulse Resp BP Pulse Ox 97.8 F 78 20 158/86 H 99 01/12/18 07:44 01/12/18 12:36 01/12/18 07:44 01/12/18 10:07 01/12/18 12:00 - Medications Medications: Current Medications Aspirin (Ecotrin) 81 mg PO DAILY [facility] Last Admin: 01/12/18 10:07 Dose: 81 mg Clopidogrel Bisulfate (Plavix) 75 mg PO DAILY [facility] Last Admin: 01/12/18 10:04 Dose: 75 mg Dextrose (Dextrose 50% Inj) 0 ml IV STAT PRN; Protocol PRN Reason: Hypoglycemia Protocol Dextrose (Glutose 15) 0 gm PO ONCE PRN; Protocol PRN Reason: Hypoglycemia Protocol Enalapril Maleate (Vasotec) 10 mg PO DAILY [facility] Last Admin: 01/12/18 10:07 Dose: 10 mg Enoxaparin Sodium (Lovenox) 100 mg SC Q12 [facility] Last Admin: 01/12/18 10:09 Dose: 100 mg Famotidine (Pepcid) 20 mg PO BID [facility] Last Admin: 01/12/18 10:06 Dose: 20 mg Glucagon (Glucagen Diagnostic Kit) 0 mg IM STAT PRN; Protocol PRN Reason: Hypoglycemia Protocol Dextrose (Dextrose 5% In Water 1000 Ml) 1,000 mls @ 0 mls/hr IV .Q0M PRN; Protocol; Per Protocol PRN Reason: Hypoglycemia Protocol Insulin Aspart (Novolog) 0 unit SC ACHS [facility] PRN Reason: Protocol Last Admin: 01/12/18 13:21 Dose: 3 units Rosuvastatin Calcium (Crestor) 10 mg PO HS [facility] Last Admin: 01/11/18 22:57 Dose: 10 mg - Labs Labs: 01/12/18 07:46 09/12/18 07:46 - Constitutional Appears: Well, No Acute Distress - Head Exam Head Exam: ATRAUMATIC, NORMAL INSPECTION - Eye Exam Eye Exam: EOMI, Normal appearance - ENT Exam ENT Exam: Mucous Membranes Moist - Respiratory Exam Respiratory Exam: Clear to Ausculation Bilateral, NORMAL BREATHING PATTERN. absent: Prolonged Expiratory Phase, Rhonchi, Wheezes - Cardiovascular Exam Cardiovascular Exam: REGULAR RHYTHM, +S1, +S2 Additional comments: During the encounter, patient is currently in sinus rhythm - GI/Abdominal Exam GI & Abdominal Exam: Soft, Normal Bowel Sounds. absent: Distended, Firm, Guarding, Rigid, Tenderness - Extremities Exam Extremities Exam: Normal Inspection. absent: Calf Tenderness, Pedal Edema - Neurological Exam Neurological Exam: Alert, Awake, Oriented x3 - Psychiatric Exam Psychiatric exam: Normal Affect, Normal Mood - Skin Skin Exam: Normal Color Assessment and Plan (1) Atrial fibrillation with rapid ventricular response Assessment & Plan: Converted to NSR after cardizem 20mg IV once in the ED. Currently in NSR Troponin negative X3 TSH 3rd generation: 0.75, WNL Serum alcohol:< 10 [id number]: 2 F/u echocardiogram official report Will add medication as needed if patient converts from NSR to A.fib Plans for pharmacological test tomorrow Plans for holter monitoring Status: Acute (2) HTN (hypertension) Assessment & Plan: Continue home medication: * Vasotec 10mg PO daily Status: Acute (3) Diabetes mellitus Assessment & Plan: Accucheck ISS- Medium dose F/u HgbA1C Lipid panel: TGL: 267, Chol:287, LDL:176 and HDL:59 * Crestor 10mg PO HS Status: Acute (4) History of peripheral arterial disease Assessment & Plan: Hx of left leg stent * ASA 81mg PO daily * Plavix 75mg PO daily Status: Acute (5) Prophylactic measure Assessment & Plan: DVT: Lovenox 100mg SC Q12H GI: Pepcid 20mg PO BID Plans for pharmacological stress test tomorrow and holter monitoring All plans and management discussed with Dr. Beck Status: Acute <John Beck - Last Filed: 01/12/18 22:43> Objective - Vital Signs/Intake and Output Vital Signs (last 24 hours): Temp Pulse Resp BP Pulse Ox 97.4 F L 69 20 122/74 98 01/12/18 15:00 01/12/18 20:34 09/12/18 15:00 01/12/18 15:00 01/12/18 20:44 Intake and Output: 01/12/18 01/13/18 18:59 06:59 Intake Total 800 Balance 800 - Medications Medications: Current Medications Aspirin (Ecotrin) 81 mg PO DAILY [facility] Last Admin: 01/12/18 10:07 Dose: 81 mg Clopidogrel Bisulfate (Plavix) 75 mg PO DAILY [facility] Last Admin: 01/12/18 10:04 Dose: 75 mg Dextrose (Dextrose 50% Inj) 0 ml IV STAT PRN; Protocol PRN Reason: Hypoglycemia Protocol Dextrose (Glutose 15) 0 gm PO ONCE PRN; Protocol PRN Reason: Hypoglycemia Protocol Enalapril Maleate (Vasotec) 10 mg PO DAILY [facility] Last Admin: 01/12/18 10:07 Dose: 10 mg Enoxaparin Sodium (Lovenox) 100 mg SC Q12 [facility] Last Admin: 01/12/18 22:16 Dose: Not Given Famotidine (Pepcid) 20 mg PO BID [facility] Last Admin: 01/12/18 17:35 Dose: 20 mg Glucagon (Glucagen Diagnostic Kit) 0 mg IM STAT PRN; Protocol PRN Reason: Hypoglycemia Protocol Dextrose (Dextrose 5% In Water 1000 Ml) 1,000 mls @ 0 mls/hr IV .Q0M PRN; Protocol; Per Protocol PRN Reason: Hypoglycemia Protocol Ibuprofen (Motrin Tab) 400 mg PO Q6 PRN PRN Reason: Pain, Mild (1-3) Last Admin: 01/12/18 16:29 Dose: 400 mg Insulin Aspart (Novolog) 0 unit SC ACHS [facility] PRN Reason: Protocol Last Admin: 01/12/18 21:42 Dose: Not Given Rosuvastatin Calcium (Crestor) 10 mg PO HS [facility] Last Admin: 01/12/18 21:47 Dose: 10 mg - Labs Labs: 01/12/18 07:46 01/12/18 07:46 Assessment and Plan - Assessment and Plan (Free Text) Assessment: Patient seen and evaluated personally by al Plan of care d/w the medical management trainer and as documented
--- NOTE | 2018-01-12 22:10 | CARD ---
APPROVED REPORT Date of service: 01/12/2018 EXAM: Two-dimensional and M-mode echocardiogram with Doppler and color Doppler. Other Information Quality : GoodRhythm : INDICATION Atrial Fibrillation Palpitations RISK FACTORS Hypertension Diabetes 2D DIMENSIONS IVSd1.0 (0.7-1.1cm)Aortic Root (2D)3.3 (2.0-3.7cm) LVDd5.4 (3.9-5.9cm)PWd0.8 (0.7-1.1cm) LVDs3.7 (2.5-4.0cm)FS (%) 31.1 % LVEF (%)58.4 (>50%) M-Mode DIMENSIONS Left Atrium (MM)2.79 (2.5-4.0cm)IVSd1.01 (0.7-1.1cm) Aortic Root3.33 (2.2-3.7cm)LVDd5.60 (4.0-5.6cm) Aortic Cusp Exc.2.13 (1.5-2.0cm)PWd0.90 (0.7-1.1cm) FS (%) 25 %LVDs4.22 (2.0-3.8cm) LVEF (%)48 (>50%) Mitral Valve MV E Hlefplqu01.8cm/sMV A Alsipfte71.9cm/sE/A ratio0.8 TDI E/Lateral E'0.0E/Medial E'0.0 Tricuspid Valve TR Peak Acyubzno693nd/sTR Peak [id number] LEFT VENTRICLE The left ventricle is normal size. There is normal left ventricular wall thickness. Left ventricle systolic function is borderline. The Ejection Fraction is 50-55%. There is normal LV segmental wall motion. Transmitral Doppler flow pattern is Grade I-abnormal relaxation pattern. There is no ventricular septal defect visualized. RIGHT VENTRICLE The right ventricle is normal size. The right ventricular systolic function is normal. ATRIA The left atrium is mildly dilated. The right atrium size is normal. AORTIC VALVE The aortic valve is mildly sclerotic. The aortic valve is tri-cuspid. No aortic regurgitation is present. There is no aortic valvular stenosis. MITRAL VALVE The mitral valve is normal in structure. There is no evidence of mitral valve prolapse. Mitral regurgitation is trace. TRICUSPID VALVE The tricuspid valve is normal in structure. There is trace tricuspid regurgitation. Right ventricular systolic pressure is estimated at less than 30 mmHg. There is no pulmonary hypertension. PULMONIC VALVE The pulmonic valve is not well visualized. There is no pulmonic valvular regurgitation. GREAT VESSELS The aortic root is normal in size. The ascending aorta is normal in size. The IVC is normal in size and collapses >50% with inspiration. PERICARDIAL EFFUSION There is no pericardial effusion. <Conclusion> Left ventricle systolic function is borderline. The Ejection Fraction is 50-55%. Transmitral Doppler flow pattern is Grade I-abnormal relaxation pattern. Mitral regurgitation is trace.
[2018-01-13 08:06] LABS: BASO % 0.6 % (0.0-2.0); EOS # 0.2 K/uL (0.0-0.7); HEMOGLOBIN 14.6 g/dL (12.0-18.0); LYMPH # 1.9 K/uL (1.0-4.3); LYMPH % 30.8 % (20.0-40.0); MEAN CELL VOLUME 91.1 fL (80.0-94.0); MEAN CORPUSCULAR HEMOGLOBIN 31.4 pg (27.0-31.0); MEAN CORPUSCULAR HGB CONC 34.5 g/dL (33.0-37.0); MEAN PLATELET VOLUME 8.1 fL (7.2-11.7); MONO # 0.4 K/uL (0.0-0.8); MONO % 6.1 % (0.0-10.0); NEUT # 3.5 K/uL (1.8-7.0); NEUT % 58.5 % (50.0-75.0); NRBC % 0.2 % (0.0-2.0); RBC 4.63 Mil/uL (4.40-5.90); RED CELL DISTRIBUTION WIDTH 13.5 % (11.5-14.5)
[2018-01-13] MEDS: (Novolog) Insulin Aspart, Recombinant 100 u/ml 10 ml vial SC SCH ×3 (08:06→17:13)
[2018-01-13] MEDS ORDERED: Caffeine Citrated **INJ** 20 MG/ML IV ONE (08:09)
[2018-01-13 08:34] LABS: ALB/GLOB RATIO 1.3 (1.0-2.1); ALBUMIN 4.3 g/dL (3.5-5.0); ALT/SGPT 59 U/L (21-72); AST/SGOT 61 U/L (17-59); BLOOD UREA NITROGEN 11 mg/dL (9-20); CALCIUM 9.4 mg/dl (8.6-10.4); GFR NON-AFRICAN AMERICAN > 60
[2018-01-13] MEDS: Enoxaparin 100 mg Syringe SC SCH (10:08)
--- NOTE | 2018-01-13 10:45 | CP.PCM.PN ---
<Cheryl Chaves E - Last Filed: 01/13/18 18:12> Subjective - Date & Time of Evaluation Date of Evaluation: 01/13/18 Time of Evaluation: 08:10 - Subjective Subjective: Cardiology progress note ( Dr. Beck's service) Patient was seen and examined while awaiting lexiscan stress test. Patient states that he is doing well and no complaints. Patient denies any chest pain, palpitations, SOB and dizziness. Objective - Vital Signs/Intake and Output Vital Signs (last 24 hours): Temp Pulse Resp BP Pulse Ox 98.6 F 80 20 138/79 99 01/13/18 08:28 01/13/18 08:28 01/13/18 08:28 01/13/18 10:08 01/13/18 08:28 Intake and Output: 01/13/18 01/13/18 06:59 18:59 Intake Total 1000 Balance 1000 - Medications Medications: Current Medications Aspirin (Ecotrin) 81 mg PO DAILY [facility] Last Admin: 01/13/18 10:08 Dose: 81 mg Clopidogrel Bisulfate (Plavix) 75 mg PO DAILY [facility] Last Admin: 01/13/18 10:08 Dose: 75 mg Dextrose (Dextrose 50% Inj) 0 ml IV STAT PRN; Protocol PRN Reason: Hypoglycemia Protocol Dextrose (Glutose 15) 0 gm PO ONCE PRN; Protocol PRN Reason: Hypoglycemia Protocol Enalapril Maleate (Vasotec) 10 mg PO DAILY [facility] Last Admin: 01/13/18 10:08 Dose: 10 mg Enoxaparin Sodium (Lovenox) 100 mg SC Q12 [facility] Last Admin: 01/13/18 10:08 Dose: Not Given Famotidine (Pepcid) 20 mg PO BID [facility] Last Admin: 01/13/18 10:08 Dose: 20 mg Glucagon (Glucagen Diagnostic Kit) 0 mg IM STAT PRN; Protocol PRN Reason: Hypoglycemia Protocol Dextrose (Dextrose 5% In Water 1000 Ml) 1,000 mls @ 0 mls/hr IV .Q0M PRN; Protocol; Per Protocol PRN Reason: Hypoglycemia Protocol Ibuprofen (Motrin Tab) 400 mg PO Q6 PRN PRN Reason: Pain, Mild (1-3) Last Admin: 01/12/18 23:56 Dose: 400 mg Insulin Aspart (Novolog) 0 unit SC ACHS [facility] PRN Reason: Protocol Last Admin: 01/13/18 08:06 Dose: Not Given Rosuvastatin Calcium (Crestor) 10 mg PO HS [facility] Last Admin: 01/12/18 21:47 Dose: 10 mg - Labs Labs: 01/13/18 07:47 01/13/18 07:47 - Constitutional Appears: Well, No Acute Distress - Head Exam Head Exam: ATRAUMATIC, NORMAL INSPECTION - Eye Exam Eye Exam: EOMI, Normal appearance - ENT Exam ENT Exam: Mucous Membranes Moist - Respiratory Exam Respiratory Exam: Clear to Ausculation Bilateral, NORMAL BREATHING PATTERN - Cardiovascular Exam Cardiovascular Exam: REGULAR RHYTHM, +S1, +S2 - GI/Abdominal Exam GI & Abdominal Exam: Soft, Normal Bowel Sounds - Extremities Exam Extremities Exam: Normal Inspection - Neurological Exam Neurological Exam: Alert, Awake, Oriented x3 Assessment and Plan (1) Atrial fibrillation with rapid ventricular response Assessment & Plan: Converted to NSR after cardizem 20mg IV once in the ED. Currently in NSR Troponin negative X3 TSH 3rd generation: 0.75, WNL Serum alcohol:< 10 [id number]: 2-3 Echocardiogram official report (01/11/18): LV systolic function is borderline. EF = 50-55%. MR is trace. Please refer to the EMR for complete impression Will add medication as needed if patient converts from NSR to A.fib Pharmacological stress test (01/13/18): Negative Discharge patient home on eliquis 5mg PO BID for 4-6 weeks and discontinue ASA and plavix in order to reduce risk of bleeding Please follow up with your outpatient counter sales person for further evaluation and possible holter monitoring and determination for future need for anticoagulation Status: Acute (2) HTN (hypertension) Assessment & Plan: Continue home medication: * Vasotec 10mg PO daily Status: Acute (3) Diabetes mellitus Assessment & Plan: Accucheck ISS- Medium dose HgbA1c: 9.8 Lipid panel: TGL: 267, Chol:287, LDL:176 and HDL:59 * Crestor 10mg PO HS Status: Acute (4) History of peripheral arterial disease Assessment & Plan: Hx of left leg stent * ASA 81mg PO daily * Plavix 75mg PO daily Status: Acute (5) Prophylactic measure Assessment & Plan: DVT: Lovenox 100mg SC Q12H GI: Pepcid 20mg PO BID Pharmacological stress test (01/13/18): Negative Discharge patient on eliquis 5mg PO BID for 4-6 weeks and discontinue ASA and plavix in order to reduce risk of bleeding Please follow up with your outpatient counter sales person for further evaluation and possible holter monitoring and determination for future need for anticoagulation All plans and management discussed with Dr. Beck Status: Acute <John Beck - Last Filed: 01/13/18 23:39> Objective - Vital Signs/Intake and Output Vital Signs (last 24 hours): Temp Pulse Resp BP Pulse Ox 98 F 71 20 137/78 97 01/13/18 16:00 01/13/18 16:00 01/13/18 16:00 01/13/18 16:00 01/13/18 16:00 - Labs Labs: 01/13/18 07:47 01/13/18 07:47 Assessment and Plan - Assessment and Plan (Free Text) Assessment: Patient seen and evaluated personally by tx Plan of care d/w the hospital medical assistant and as documented
[2018-01-13 16:20] VITALS: PULSE 71
[2018-01-13 17:07] VITALS: BP 137/78; TEMP 98; O2SAT 97
--- NOTE | 2018-01-13 18:14 | CP.PCM.DIS ---
<Gregor Wise - Last Filed: 01/13/18 17:59> Provider - Provider Date of Admission: 01/11/18 05:37 Attending physician: Jeremy De Leon MD Primary care physician: Sage Ayala MD Time Spent in preparation of Discharge (in minutes): 45 Diagnosis - Discharge Diagnosis (1) Atrial fibrillation with rapid ventricular response Status: Acute Hospital Course - Lab Results Lab Results: Most Recent Lab Values WBC 6.0 K/uL (4.8-10.8) 01/13/18 07:47 RBC 4.63 Mil/uL (4.40-5.90) 01/13/18 07:47 Hgb 14.6 g/dL (12.0-18.0) 01/13/18 07:47 Hct 42.2 % (35.0-51.0) 01/13/18 07:47 MCV 91.1 fL (80.0-94.0) 01/13/18 07:47 MCH 31.4 pg (27.0-31.0) H 01/13/18 07:47 MCHC 34.5 g/dL (33.0-37.0) 01/13/18 07:47 RDW 13.5 % (11.5-14.5) 01/13/18 07:47 Plt Count 289 K/uL (130-400) 01/13/18 07:47 MPV 8.1 fL (7.2-11.7) 01/13/18 07:47 Neut % (Auto) 58.5 % (50.0-75.0) 01/13/18 07:47 Lymph % (Auto) 30.8 % (20.0-40.0) 01/13/18 07:47 Jasper % (Auto) 6.1 % (0.0-10.0) 01/13/18 07:47 Eos % (Auto) 4.0 % (0.0-4.0) 01/13/18 07:47 Baso % (Auto) 0.6 % (0.0-2.0) 01/13/18 07:47 Neut # (Auto) 3.5 K/uL (1.8-7.0) 01/13/18 07:47 Lymph # (Auto) 1.9 K/uL (1.0-4.3) 01/13/18 07:47 Jasper # (Auto) 0.4 K/uL (0.0-0.8) 01/13/18 07:47 Eos # (Auto) 0.2 K/uL (0.0-0.7) 01/13/18 07:47 Baso # (Auto) 0.0 K/uL (0.0-0.2) 01/13/18 07:47 D-Dimer, Quantitative < 200 ng/mlDDU (0-243) 01/11/18 07:18 Sodium 140 mmol/L (132-148) 01/13/18 07:47 Potassium 4.6 mmol/L (3.6-5.2) 01/13/18 07:47 Chloride 103 mmol/L (98-107) 01/13/18 07:47 Carbon Dioxide 26 mmol/L (22-30) 01/13/18 07:47 Anion Gap 15 (10-20) 01/13/18 07:47 BUN 11 mg/dL (9-20) 01/13/18 07:47 Creatinine 0.6 mg/dL (0.8-1.5) L 01/13/18 07:47 Est GFR ( Amer) > 60 01/13/18 07:47 Est GFR (Non-Af Amer) > 60 01/13/18 07:47 POC Glucose (mg/dL) 237 mg/dL (65-110) H 01/13/18 16:50 Random Glucose 220 mg/dL (75-110) H 01/13/18 07:47 Hemoglobin A1c 9.8 % (4.2-6.5) H D 01/12/18 07:46 Calcium 9.4 mg/dl (8.6-10.4) 01/13/18 07:47 Phosphorus 3.4 mg/dL (2.5-4.5) 01/13/18 07:47 Magnesium 1.5 mg/dL (1.6-2.3) L 01/13/18 07:47 Total Bilirubin 0.6 mg/dL (0.2-1.3) 01/13/18 07:47 AST 61 U/L (17-59) H D 01/13/18 07:47 ALT 59 U/L (21-72) 01/13/18 07:47 Alkaline Phosphatase 96 U/L (38-126) 01/13/18 07:47 Total Creatine Kinase 73 U/L (55-170) 01/11/18 17:42 CK-MB (Mass) 1.30 ng/mL (0.0-3.38) 01/11/18 17:42 Troponin I < 0.0120 ng/mL (0.00-0.120) 01/11/18 17:42 NT-Pro-B Natriuret Pep 33.7 pg/mL (0-900) 01/11/18 05:52 Total Protein 7.6 g/dL (6.3-8.3) 01/13/18 07:47 Albumin 4.3 g/dL (3.5-5.0) 01/13/18 07:47 Globulin 3.3 gm/dL (2.2-3.9) 01/13/18 07:47 Albumin/Globulin Ratio 1.3 (1.0-2.1) 01/13/18 07:47 Triglycerides 267 mg/dL (0-149) H 01/11/18 05:52 Cholesterol 287 mg/dL (0-199) H 01/11/18 05:52 LDL Cholesterol Direct 176 mg/dL (0-129) H 01/11/18 05:52 HDL Cholesterol 59 mg/dL (30-70) 01/11/18 05:52 Alcohol, Quantitative < 10 mg/dl (0-10) 01/11/18 08:52 - Hospital Course Hospital Course: HPI: 62 yo M with PMHx of recent new onset atrial fibrillation, diabetes, hypertension, hyperlipidemia, peripheral vascular disease, and asthma who reports feeling palpitations which started approx 4:45AM this morning (01/11). Symptoms, including palpitations, chest discomfort, lightheaded & tunnel vision occurred while he was getting up from putting his shoes on. Symptoms resolved following arrival to ED and receiving 1 X cardizem mg in ED. Currently, patient denies chest pain, SOB, light headedness, palpitations, diarhea, constipation. Patient had similar symptoms 1 week prior that prompted him to the ED as well. During ED visit, patient was found to be in AFIB, and was given cardizem as well. Patient symtpoms had resolved prompting him to sign out AMA. w/ resolution of symptoms. At that time, patient signed out AMA.Patient reports he followed up with his PMD, Dr. Moncada and then was referred to intake counselor, Dr. Meade who had scheduled a nuclear stress test for 01/12/18. PMD: Dr. 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 He was admitted to the medicine floor and placed on telemetry for medical management and cardiac monitoring. Cardiology was consulted and their recommendations were appreciated in the patient's care. Patient was continued on his home medications including ASA and Plavix for his history of CAD s/p LLE stenting. Patient was diagnosed with atrial fibrillation with rapid ventricular response. He did go for an echocardiogram (findings discussed below). Patient also went for a nuclear stress test- he will follow up with his Crop Specialist, Dr. Rosales, regarding the results of his stress test. The patient was not placed on any medications for rate control. His atrial fibrillation will continue to be treated on an outpatient basis when the patient follows with his intake counselor in 7-10 days. Imaging/Pertinent Labs: EKG (01/11/18): Normal sinus rhythm. Inferior infarct, age undetermined Chest x-ray (01/11/18): Bibasilar atelectasis left greater than right. Developing left lower lobe infiltrate could be excluded with followup radiographs EKG (01/11/18): Normal sinus rhythm. Non-specific T wave abnormality Serum Alcohol (01/11/18): <10 Echo (01/11/18): Left ventricle systolic function is borderline. Ejection fraction is 50-55%. Transmitral doppler flow is Grade 1-abnormal relaxation pattern. Mitral regurgitation is trace. EKG (01/11/18): Normal sinus rhythm. Possible inferior infarct, age undetermined. Tropnins (01/11/18): Negative x3 Plan: Patient is cleared for discharge per Dr. Morrow. Please return to the ER if symptoms reoccur or worsen. Your medications have been reconciled and prescriptions for new medications have been provided. Please start taking these new medications: -Eliquis 5mg 1 tab by mouth twice per day at 8am and 8pm -Lipitor 10mg one tab by mouth at bedtime Please stop taking the following medications: -Motrin --> This may cause stomach irritation and increase bleeding risk -Ciprofloxacin -Aspirin 81 mg 1 tab by mouth daily -Plavix 75 mg 1 tab by mouth daily Please continue the following home medications -Vasotec 10 mg 1 tab by mouth daily -Gabapentin 600 mg by mouth two times per day at 8am and 8pm -Hyoscyamine Sulfate .125 mg 1 tab every 4 hours -Janumet 50-1000 1 tab by mouth two times per day at 8am and 8pm Patient should follow up with his Crop Specialist, Dr. Rosales in 1-2 weeks to go over the results obtained from his holter monitor, as well as for further management. Discharge Exam - Head Exam Head Exam: ATRAUMATIC, NORMAL INSPECTION - Eye Exam Eye Exam: EOMI, Normal appearance Pupil Exam: NORMAL ACCOMODATION - ENT Exam ENT Exam: Mucous Membranes Moist, Normal Exam - Respiratory Exam Respiratory Exam: NORMAL BREATHING PATTERN, UNREMARKABLE. absent: Chest Wall Tenderness, Decreased Breath Sounds, Rales, Rhonchi, Wheezes, Respiratory Distress - Cardiovascular Exam Cardiovascular Exam: REGULAR RHYTHM, RRR, +S1, +S2. absent: Clicks, Irregular Rhythm, JVD, Systolic Murmur - GI/Abdominal Exam GI & Abdominal Exam: Normal Bowel Sounds, Soft, Unremarkable. absent: Rebound, Rigid, Tenderness - Extremities Exam Extremities exam: normal inspection, pedal pulses present - Neurological Exam Neurological exam: Alert, CN II-XII Intact, Normal Gait, Oriented x3 - Psychiatric Exam Psychiatric exam: Normal Affect, Normal Mood - Skin Skin Exam: Dry, Intact, Normal Color, Warm Discharge Plan - Discharge Medications Prescriptions: Apixaban [Eliquis] 5 mg PO BID #60 tablet Atorvastatin [Lipitor] 10 mg PO HS #30 tab - Follow Up Plan Condition: GUARDED Disposition: HOME/ ROUTINE Instructions: Atrial Fibrillation (DC), High Blood Pressure (DC), Diabetes Diet , Diabetes Type 2 (DC), Apixaban, Atorvastatin Additional Instructions: Patient is cleared for discharge per Dr. Morrow. Please return to the ER if symptoms reoccur or worsen. Your medications have been reconciled and prescriptions for new medications have been provided. Please start taking these new medications: -Eliquis 5mg 1 tab by mouth twice per day at 8am and 8pm -Lipitor 10mg one tab by mouth at bedtime Please stop taking the following medications: -Motrin --> This may cause stomach irritation and increase bleeding risk -Ciprofloxacin -Aspirin 81 mg 1 tab by mouth daily -Plavix 75 mg 1 tab by mouth daily Please continue the following home medications -Vasotec 10 mg 1 tab by mouth daily -Gabapentin 600 mg by mouth two times per day at 8am and 8pm -Hyoscyamine Sulfate .125 mg 1 tab every 4 hours -Janumet 50-1000 1 tab by mouth two times per day at 8am and 8pm Patient should follow up with his Crop Specialist, Dr. Rosales in 1-2 weeks to go over the results obtained from his holter monitor, as well as for further management. Referrals: Sage Ayala MD [Primary Care Provider] - John Rosales MD [Medical Doctor] - <Ion Morrow - Last Filed: 01/13/18 19:21> Provider - Provider Date of Admission: 01/11/18 05:37 Attending physician: Jeremy De Leon MD Primary care physician: Sage Ayala MD Hospital Course - Lab Results Lab Results: Most Recent Lab Values WBC 6.0 K/uL (4.8-10.8) 01/13/18 07:47 RBC 4.63 Mil/uL (4.40-5.90) 01/13/18 07:47 Hgb 14.6 g/dL (12.0-18.0) 01/13/18 07:47 Hct 42.2 % (35.0-51.0) 01/13/18 07:47 MCV 91.1 fL (80.0-94.0) 01/13/18 07:47 MCH 31.4 pg (27.0-31.0) H 01/13/18 07:47 MCHC 34.5 g/dL (33.0-37.0) 01/13/18 07:47 RDW 13.5 % (11.5-14.5) 01/13/18 07:47 Plt Count 289 K/uL (130-400) 01/13/18 07:47 MPV 8.1 fL (7.2-11.7) 01/13/18 07:47 Neut % (Auto) 58.5 % (50.0-75.0) 01/13/18 07:47 Lymph % (Auto) 30.8 % (20.0-40.0) 01/13/18 07:47 Jasper % (Auto) 6.1 % (0.0-10.0) 01/13/18 07:47 Eos % (Auto) 4.0 % (0.0-4.0) 01/13/18 07:47 Baso % (Auto) 0.6 % (0.0-2.0) 01/13/18 07:47 Neut # (Auto) 3.5 K/uL (1.8-7.0) 01/13/18 07:47 Lymph # (Auto) 1.9 K/uL (1.0-4.3) 01/13/18 07:47 Jasper # (Auto) 0.4 K/uL (0.0-0.8) 01/13/18 07:47 Eos # (Auto) 0.2 K/uL (0.0-0.7) 01/13/18 07:47 Baso # (Auto) 0.0 K/uL (0.0-0.2) 01/13/18 07:47 D-Dimer, Quantitative < 200 ng/mlDDU (0-243) 01/11/18 07:18 Sodium 140 mmol/L (132-148) 01/13/18 07:47 Potassium 4.6 mmol/L (3.6-5.2) 01/13/18 07:47 Chloride 103 mmol/L (98-107) 01/13/18 07:47 Carbon Dioxide 26 mmol/L (22-30) 01/13/18 07:47 Anion Gap 15 (10-20) 01/13/18 07:47 BUN 11 mg/dL (9-20) 01/13/18 07:47 Creatinine 0.6 mg/dL (0.8-1.5) L 01/13/18 07:47 Est GFR ( Amer) > 60 01/13/18 07:47 Est GFR (Non-Af Amer) > 60 01/13/18 07:47 POC Glucose (mg/dL) 237 mg/dL (65-110) H 01/13/18 16:50 Random Glucose 220 mg/dL (75-110) H 01/13/18 07:47 Hemoglobin A1c 9.8 % (4.2-6.5) H D 01/12/18 07:46 Calcium 9.4 mg/dl (8.6-10.4) 01/13/18 07:47 Phosphorus 3.4 mg/dL (2.5-4.5) 01/13/18 07:47 Magnesium 1.5 mg/dL (1.6-2.3) L 01/13/18 07:47 Total Bilirubin 0.6 mg/dL (0.2-1.3) 01/13/18 07:47 AST 61 U/L (17-59) H D 01/13/18 07:47 ALT 59 U/L (21-72) 01/13/18 07:47 Alkaline Phosphatase 96 U/L (38-126) 01/13/18 07:47 Total Creatine Kinase 73 U/L (55-170) 01/11/18 17:42 CK-MB (Mass) 1.30 ng/mL (0.0-3.38) 01/11/18 17:42 Troponin I < 0.0120 ng/mL (0.00-0.120) 01/11/18 17:42 NT-Pro-B Natriuret Pep 33.7 pg/mL (0-900) 01/11/18 05:52 Total Protein 7.6 g/dL (6.3-8.3) 01/13/18 07:47 Albumin 4.3 g/dL (3.5-5.0) 01/13/18 07:47 Globulin 3.3 gm/dL (2.2-3.9) 01/13/18 07:47 Albumin/Globulin Ratio 1.3 (1.0-2.1) 01/13/18 07:47 Triglycerides 267 mg/dL (0-149) H 01/11/18 05:52 Cholesterol 287 mg/dL (0-199) H 01/11/18 05:52 LDL Cholesterol Direct 176 mg/dL (0-129) H 01/11/18 05:52 HDL Cholesterol 59 mg/dL (30-70) 01/11/18 05:52 Alcohol, Quantitative < 10 mg/dl (0-10) 01/11/18 08:52 Attending/Attestation - Attestation I have personally seen and examined this patient.: Yes I have fully participated in the care of the patient.: Yes I have reviewed all pertinent clinical information, including history, physical exam and plan: Yes Notes (Text): Patient was seen and examined by me.Discussed with Dr Beck.Stress test is negative .He recommends to discharge him on Eliquis 5mg po bid,Stop his asprin and plavix.Recommend to see his intake counselor in 2 weeks for out patient Holter monitor Patient was explained to the patient about stop taking plavix and aspirin. Discussed about risk of bleeding on Eliquis and getting medical help if he develop black stool or any bleeding
--- NOTE | 2018-01-17 23:01 | CARD ---
APPROVED REPORT Date of service: 01/13/2018 Protocol: PHARMACOLOGICAL STRESS Test Type: LEXISCAN Test Indications: NEW ONSET OF ATRIAL FIBRILLATION Medications: LIST SCAN Medical History: A/FIB,RVR,DM,HTN Target HR: 156 bpm Resting ECG: NSR Resting Heart Rate: 76 bpm Resting Blood Pressure: /mmHg submaximum (85%): 133 bpm TEST SUMMARY [id number]:[id number]/70.0. INFUSIONDOSE 100:300.00.01.074/.0. [id number]:[id number]/76.0. PROCEDURE Pharmacologic stress testing was performed using 0.4mg per 5ml of regadenoson given intravenously over 7-10 seconds. POST EXERCISE Reason for Termination: Protocol Completed Target HR: No Max HR: 74 bpm 63% of Maximum Predicted HR: 156 bpm Exercise duration: 00:30 min:sec, 0 Stage Exercise capacity: 1.0METs Max Blood Pressure: 144/80mmHg Blood Pressure response to exercise: normal resting BP - appropriate response Heart Rate response to exercise: appropriate Chest Pain: No, none Angina index: 0 Arrhythmia: No, none ST Change: Yes, NS ST T CHANGES Deviation: 0 mm INTERPRETATION Stress EKG Conclusion: NEGATIVE LEXISCAN STRESS TEST NORMAL BP RESPONSE TO LEXISCAN NUCLEAR STUDIES TO BE READ SEPARATELY EXAM: Myocardial Perfusion STRESS/REST Imaging Protocol The imaging protocol used to acquire images was Stress Tc-99m/rest Tc-99m 1 day StressStress Spect myocardial perfusion imaging was performed in supine position 42 minutes following the injection of 13.2 mCi of Tc-99 Myoview. Gated Rest Spect was performed 40 minutes after intravenous 32.6 mCi Tc-99 Myoview injection. The images were gated to evaluate regional wall motion and calculate ventricular ejection fraction.Images were reconstructed using backfilter projection method in short horizontal and verticle long axis. Spect slices were generated. RESTING DATA COL567.78raQW7.70L/min ESV62.00mlMyocardial Nbwe316.00g Av. Heart Rate69.00bpm EF52.00% STRESS DATA OFM922.68lgRC71.70L/min ESV39.00mlMyocardial Srnt743.00g EF64.00% Regional WT score at stress:0.00 Regional WM score at stress:0.00 Summed WT score at stress:11.00 Av. Heart Dhqa727.00bpmSummed WM score at stress:3.00 LV Perf. Quant 17 Seg. SSS2.00 17 Seg. SRS3.00 17 Seg. SDS0.00 Stress Defect Extent (% LAD)0.00Rest Defect Extent (% LAD)0.00Rev. Defect Extent (% LAD)0.00 Stress Defect Extent (% LCX)17.50Rest Defect Extent (% LCX)26.30Rev. Defect Extent (% LCX)0.00 Stress Defect Extent (% RCA)0.00Rest Defect Extent (% RCA)0.00Rev. Defect Extent (% RCA)0.00 Stress Defect Extent (% SOCORRO)4.10Rest Defect Extent (% SOCORRO)7.40Rev. Defect Extent (% SOCORRO)0.00 Other Information Quality:Good IMPRESSION Normal Myocardial Perfusion exercise stress study Metabolism/Perfusion There are no perfusion/metabolism defects. Conclusion 1. Normal Lexiscan Nuclear stress test. Normal EF
== END 2018-01-13 18:00 | disposition home or self-care (01) ==
LOC: SUPCPDRO 05:21 → C.ER 05:21 → INTOOBSV 05:37 → C.9E 05:37 → C.5S 11:57
PROVIDERS: ADMIT Family Medicine; ATTEND Family Medicine
DX: I48.0 Paroxysmal atrial fibrillation (principal); I10 Essential (primary) hypertension; I34.0 Nonrheumatic mitral (valve) insufficiency; Z79.01 Long term (current) use of anticoagulants; J98.11 Atelectasis; J45.909 Unspecified asthma, uncomplicated; Z79.02 Long term (current) use of antithrombotics/antiplatelets; F10.10 Alcohol abuse, uncomplicated; E78.00 Pure hypercholesterolemia, unspecified; E11.51 Type 2 diabetes mellitus with diabetic peripheral angiopathy without gangrene; E11.40 Type 2 diabetes mellitus with diabetic neuropathy, unspecified; E78.5 Hyperlipidemia, unspecified; Z79.82 Long term (current) use of aspirin; Z87.891 Personal history of nicotine dependence; Z86.14 Personal history of Methicillin resistant Staphylococcus aureus infection
CPT/HCPCS: 36415; 71045; 78452; 80053; 80061; 82948; 83036; 83735; 83880; 84100; 84484; 85025; 85378; 93005; 93017; 93306; 96365; 96366; 96372; 96375; 97162; 99285; A9502; G0378; G0480; G8978; G8979; J1650; J2785; J3475

== ENCOUNTER 2018-01-23 08:16 | Emergency (ER) | payer OTHER ==
[2018-01-23 08:16] VITALS: BMI 27.8
[2018-01-23 08:40] LABS: BASO # 0.1 K/uL (0.0-0.2); BASO % 0.9 % (0.0-2.0); EOS # 0.2 K/uL (0.0-0.7); EOS % 3.7 % (0.0-4.0); HEMOGLOBIN 14.3 g/dL (12.0-18.0); LYMPH # 1.8 K/uL (1.0-4.3); LYMPH % 27.8 % (20.0-40.0); MEAN CELL VOLUME 90.6 fL (80.0-94.0); MEAN CORPUSCULAR HEMOGLOBIN 31.8 pg (27.0-31.0); MEAN CORPUSCULAR HGB CONC 35.1 g/dL (33.0-37.0); MEAN PLATELET VOLUME 8.1 fL (7.2-11.7); MONO # 0.4 K/uL (0.0-0.8); MONO % 6.6 % (0.0-10.0); RBC 4.5 Mil/uL (4.40-5.90); RED CELL DISTRIBUTION WIDTH 13.1 % (11.5-14.5); WHITE BLOOD COUNT 6.5 K/uL (4.8-10.8)
[2018-01-23 09:53] LABS: ALB/GLOB RATIO 1.3 (1.0-2.1); ALBUMIN 3.9 g/dL (3.5-5.0); ALT/SGPT 47 U/L (21-72); AST/SGOT 27 U/L (17-59); BLOOD UREA NITROGEN 16 mg/dL (9-20); CALCIUM 9.5 mg/dl (8.6-10.4); GFR NON-AFRICAN AMERICAN > 60
[2018-01-23 10:02] LABS: B-TYPE NATRIURETIC PEPTIDE < 11.1 pg/mL (0-900)
--- NOTE | 2018-01-23 10:27 | RAD ---
Date of service: 01/23/2018 PROCEDURE: CHEST RADIOGRAPH, 1 VIEW HISTORY: SOB COMPARISON: 01/11/2018. FINDINGS: LUNGS: The lungs are well inflated and clear. PLEURA: No pneumothorax or pleural fluid seen. CARDIOVASCULAR: Normal. OSSEOUS STRUCTURES: No significant abnormalities. VISUALIZED UPPER ABDOMEN: Normal. OTHER FINDINGS: None. IMPRESSION: No active pulmonary disease.
--- NOTE | 2018-01-23 12:11 | C.PDOC ---
History Of Present Illness 62 y/o male, with PMHx of HTN, and diabetes, presents to ED c/o palpitations since 7:30 this morning. Pt reports symptoms have resolved. Pt was admitted here few weeks ago had negative stress test and echocardiogram that demonstrates EF of 55% and trace MR. Wilver was diagnosed with Afib during that visit. Notes he is scheduled for holter monitor placement on 02/11. Denies chest pain, shortness of breath, or other complaints at this time. Time Seen by Provider: 01/23/18 08:22 Chief Complaint (Nursing): Palpitations History Per: Patient History/Exam Limitations: no limitations Past Medical History Reviewed: Historical Data, Nursing Documentation, Vital Signs Vital Signs: Last Vital Signs Temp 98.4 F 01/23/18 14:10 Pulse 86 01/23/18 14:10 Resp 16 01/23/18 14:10 BP 132/68 01/23/18 14:10 Pulse Ox 99 01/23/18 15:02 - Medical History PMH: Atrial Fibrillation, Bronchitis, Diabetes, Diverticulitis, HTN, Hyperlipidemia Denies: Chronic Kidney Disease - [facility] Procedures COMPUTERIZED TOMOGRAPHY (CT SCAN) OF ABDOMINAL AORTA (02/09/17) COMPUTERIZED TOMOGRAPHY (CT SCAN) OF L LOW EXTREM ART (02/09/17) DILATE L PERONEAL ART W DRUG-ELUT INTRALUM, PERC (11/26/15) EXTIRPATION OF MATTER FROM L PERONEAL ART, PERC APPROACH (11/26/15) FLUOROSCOPY OF SUPERIOR VENA CAVA, GUIDANCE (02/09/17) INSERTION OF INFUSION DEV INTO R BASILIC VEIN, PERC APPROACH (02/09/17) INSERTION OF INFUSION DEV INTO SUP VENA CAVA, PERC APPROACH (02/09/17) ULTRASONOGRAPHY OF RIGHT UPPER EXTREMITY VEINS, GUIDANCE (02/09/17) ULTRASONOGRAPHY OF SUPERIOR VENA CAVA, GUIDANCE (11/26/15) Family History: States: [place] (Both mother and father.), CAD (Both Mother and father.) - Social History Hx Tobacco Use: No Hx Alcohol Use: Yes (3 beers daily) Hx Substance Use: No - Immunization History Hx Tetanus Toxoid Vaccination: No Hx Influenza Vaccination: Yes Hx Pneumococcal Vaccination: Yes Review Of Systems Except As Marked, All Systems Reviewed And Found Negative. Constitutional: Negative for: Fever, Chills Cardiovascular: Positive for: Palpitations. Negative for: Chest Pain Respiratory: Negative for: Cough, Shortness of Breath Physical Exam - Physical Exam Appears: Non-toxic, No Acute Distress Skin: Normal Color, Warm, Dry Head: Atraumatic, Normacephalic Eye(s): bilateral: Normal Inspection Oral Mucosa: Moist Neck: Supple Chest: Symmetrical, No Tenderness Cardiovascular: Rhythm Regular, No Murmur Respiratory: Normal Breath Sounds, No Rales, No Rhonchi, No Wheezing Gastrointestinal/Abdominal: Soft, No Tenderness Extremity: Normal ROM, No Pedal Edema Neurological/Psych: Oriented x3, Normal Speech ED Course And Treatment - Laboratory Results Result Diagrams: 01/23/18 08:33 ECG: Interpreted By Me, Viewed By Me Interpretation Of ECG: Normal sinus rhythm. Poor R wave progression. Q wave in lead 3. No ST wave abnormalities. Rate From EC O2 Sat by Pulse Oximetry: 99 (RA) Pulse Ox Interpretation: Normal Medical Decision Making Medical Decision Making: Plan: Blood work CXR EKG Impression: Palpitations Spoke with Dr. Ascencio, covering for Dr. Beck, states he will come to ER and evaluate pt at beside at 14:00. Pt was evaluated by Dr. Ascencio in ER, who state patient is okay to be discharged home on cardizem 30mg TID. Disposition Discussed With : Larissa Ascencio Doctor Will See Patient In The: ED Counseled Patient/Family Regarding: Studies Performed, Diagnosis, Need For Followup, Rx Given - Disposition Disposition: HOME/ ROUTINE Disposition Time: 15:00 Condition: IMPROVED Additional Instructions: start cardizem as per Dr. 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 Prescriptions: Diltiazem HCl [Cardizem] 30 mg PO TID #60 tablet Instructions: Palpitations Forms: [facility] (Slovenian), General Discharge Instructions - Clinical Impression Clinical Impression: Palpitations - Scribe Statement The provider has reviewed the documentation as recorded by the Scribe KP All medical record entries made by the Scribe were at my direction and personally dictated by me. I have reviewed the chart and agree that the record accurately reflects my personal performance of the history, physical exam, medical decision making, and the department course for this patient. I have also personally directed, reviewed, and agree with the discharge instructions and disposition.
[2018-01-23 13:37] LABS: CK-MB 1.15 ng/mL (0.0-3.38)
[2018-01-23 14:11] VITALS: BP 132/68; PULSE 86; RESP 16; TEMP 98.4
[2018-01-23 15:02] VITALS: O2SAT 99
--- NOTE | 2018-01-24 16:19 | C.PDOC ---
History Of Present Illness Patient with history of Paroxysmal atrial fibrillation who had recently work-up done and was scheduled for EPS in Jan at [facility]. Came to ER because he had another episode of palpitation. At the time of examination, resting comfortably and anxious to go to home. Time Seen by Provider: 01/23/18 08:22 Chief Complaint (Nursing): Palpitations Past Medical History Vital Signs: Last Vital Signs Temp 98.4 F 01/23/18 14:10 Pulse 86 01/23/18 14:10 Resp 16 01/23/18 14:10 BP 132/68 01/23/18 14:10 Pulse Ox 99 01/24/18 16:21 - Medical History PMH: Atrial Fibrillation, Bronchitis, Diabetes, Diverticulitis, HTN, Hyperlipidemia Denies: Chronic Kidney Disease - [facility] Procedures COMPUTERIZED TOMOGRAPHY (CT SCAN) OF ABDOMINAL AORTA (02/09/17) COMPUTERIZED TOMOGRAPHY (CT SCAN) OF L LOW EXTREM ART (02/09/17) DILATE L PERONEAL ART W DRUG-ELUT INTRALUM, PERC (11/26/15) EXTIRPATION OF MATTER FROM L PERONEAL ART, PERC APPROACH (11/26/15) FLUOROSCOPY OF SUPERIOR VENA CAVA, GUIDANCE (02/09/17) INSERTION OF INFUSION DEV INTO R BASILIC VEIN, PERC APPROACH (02/09/17) INSERTION OF INFUSION DEV INTO SUP VENA CAVA, PERC APPROACH (02/09/17) ULTRASONOGRAPHY OF RIGHT UPPER EXTREMITY VEINS, GUIDANCE (02/09/17) ULTRASONOGRAPHY OF SUPERIOR VENA CAVA, GUIDANCE (11/26/15) Family History: States: [place] (Both mother and father.), CAD (Both Mother and father.) - Social History Hx Tobacco Use: No Hx Alcohol Use: Yes (3 beers daily) Hx Substance Use: No - Immunization History Hx Tetanus Toxoid Vaccination: No Hx Influenza Vaccination: Yes Hx Pneumococcal Vaccination: Yes ED Course And Treatment - Laboratory Results Result Diagrams: 01/23/18 08:33 O2 Sat by Pulse Oximetry: 99 (RA) Disposition Discussed With : ER attend - Disposition Condition: STABLE Additional Instructions: start cardizem as per Dr. Ascencio you are discharged by environmental web crawler take medications as prescribed return to ER if symptoms worsens or progress follow up within 2 days with your doctor. Prescriptions: Diltiazem HCl [Cardizem] 30 mg PO TID #60 tablet Instructions: Palpitations Forms: General Discharge Instructions, [facility] (Upper Sorbian)
--- NOTE | 2018-01-24 19:25 | CARD ---
APPROVED REPORT Date of service: 01/23/2018 EKG Measurement Heart [id number] <Conclusion> Normal sinus rhythm Low voltage QRS in precordial leads Poor R wave progression Abnormal ECG
== END 2018-01-23 15:28 | disposition home or self-care (01) ==
LOC: C.ER 08:16
DX: R00.2 Palpitations (principal)

== ENCOUNTER 2018-05-18 11:09 | Emergency (ER) | payer OTHER ==
[2018-05-18 11:09] VITALS: BMI 27.8
[2018-05-18 11:44] VITALS: RESP 18
[2018-05-18] MEDS ORDERED: Bacitracin 500 Units/gm Oint Foilpak UD TOP ONE (12:50)
[2018-05-18] MEDS ORDERED: Bacitracin 500 Units/gm Oint Foilpak UD ONE (12:55)
--- NOTE | 2018-05-18 13:09 | C.PDOC ---
History Of Present Illness Pt c/o wound to left foot. Denies specific injury. Time Seen by Provider: 05/18/18 12:15 Chief Complaint (Nursing): Abnormal Skin Integrity History Per: Patient Onset/Duration Of Symptoms: Days (1?) Current Symptoms Are (Timing): Still Present Location Of Injury: Left: Foot Quality Of Symptoms: Painful, Draining Severity: Moderate Additional History Per: Prior Records Past Medical History Reviewed: Historical Data, Nursing Documentation, Vital Signs Vital Signs: Last Vital Signs Temp 97.9 F 05/18/18 11:15 Pulse 93 H 05/18/18 11:15 Resp 18 05/18/18 11:15 BP 140/81 05/18/18 11:15 Pulse Ox 99 05/18/18 11:15 - Medical History PMH: Atrial Fibrillation, Bronchitis, Diabetes, Diverticulitis, HTN, Hyperlipidemia - [facility] Procedures COMPUTERIZED TOMOGRAPHY (CT SCAN) OF ABDOMINAL AORTA (02/09/17) COMPUTERIZED TOMOGRAPHY (CT SCAN) OF L LOW EXTREM ART (02/09/17) DILATE L PERONEAL ART W DRUG-ELUT INTRALUM, PERC (11/26/15) EXTIRPATION OF MATTER FROM L PERONEAL ART, PERC APPROACH (11/26/15) FLUOROSCOPY OF SUPERIOR VENA CAVA, GUIDANCE (02/09/17) INSERTION OF INFUSION DEV INTO R BASILIC VEIN, PERC APPROACH (02/09/17) INSERTION OF INFUSION DEV INTO SUP VENA CAVA, PERC APPROACH (02/09/17) ULTRASONOGRAPHY OF RIGHT UPPER EXTREMITY VEINS, GUIDANCE (02/09/17) ULTRASONOGRAPHY OF SUPERIOR VENA CAVA, GUIDANCE (11/26/15) Family History: States: [place] (Both mother and father.), CAD (Both Mother and father.) - Social History Hx Tobacco Use: No Hx Alcohol Use: Yes (3 beers daily) Hx Substance Use: No - Immunization History Hx Tetanus Toxoid Vaccination: No Hx Influenza Vaccination: Yes Hx Pneumococcal Vaccination: Yes Review Of Systems Except As Marked, All Systems Reviewed And Found Negative. Constitutional: Negative for: Fever, Weakness Cardiovascular: Negative for: Chest Pain Respiratory: Negative for: Shortness of Breath Musculoskeletal: Negative for: Back Pain, Leg Pain Neurological: Negative for: Weakness, Numbness Physical Exam - Physical Exam Appears: Non-toxic, No Acute Distress Skin: Warm Head: Atraumatic, Normacephalic Eye(s): bilateral: PERRL Neck: Normal ROM, Supple Extremity: Normal ROM, No Calf Tenderness, Capillary Refill (wnl), Other (ulcer on plantar aspect of anterior/lateral left foot) Pulses: Left Dorsalis Pedis: Normal Neurological/Psych: Normal Motor, Normal Sensation ED Course And Treatment O2 Sat by Pulse Oximetry: 99 Pulse Ox Interpretation: Normal Medical Decision Making Medical Decision Making: Will treat with oral antibiotics, send a wound culture, and ask pt to return in 3 days for wound check and culture results. Disposition Counseled Patient/Family Regarding: Studies Performed, Diagnosis, Need For Followup, Rx Given - Disposition Disposition: HOME/ ROUTINE Disposition Time: 13:10 Condition: STABLE Additional Instructions: Follow up with your doctor. Return to the ER in 3 days for a wound check and for the result of you wound culture. Return to the ER immediately if you develop fever, worsening of symptoms or have any other concerns. Prescriptions: Clindamycin [Cleocin] 300 mg PO QID #40 cap Instructions: Diabetic Foot Ulcer (DC) - Clinical Impression Clinical Impression: Diabetic ulcer of left foot
[2018-05-18 13:37] VITALS: BP 127/79; PULSE 75; TEMP 97.8; O2SAT 97
== END 2018-05-18 13:45 | disposition home or self-care (01) ==
LOC: C.ER 11:09
DX: E11.621 Type 2 diabetes mellitus with foot ulcer (principal)